=== PATIENT | female | born 1965 | race American Indian/Alaskan Native ===

== ENCOUNTER 2017-04-13 15:38 | Emergency (ER) | payer MEDICARE ==
[2017-04-13 15:55] VITALS: TEMP 98.2
[2017-04-13 16:41] LABS: BASO % 0.6 % (0.0-2.0); EOS # 0.2 K/uL (0.0-0.7); EOS % 2.9 % (0.0-4.0); HEMATOCRIT 31.9 % (34.0-47.0); LYMPH # 1.7 K/uL (1.0-4.3); LYMPH % 20.9 % (20.0-40.0); MEAN CELL VOLUME 92.5 fL (81.0-99.0); MEAN CORPUSCULAR HEMOGLOBIN 30.8 pg (27.0-31.0); MEAN CORPUSCULAR HGB CONC 33.3 g/dL (33.0-37.0); MEAN PLATELET VOLUME 7.9 fL (7.2-11.7); MONO # 0.6 K/uL (0.0-0.8); MONO % 7.3 % (0.0-10.0); RED CELL DISTRIBUTION WIDTH 14.3 % (11.5-14.5); WHITE BLOOD COUNT 8.3 K/uL (4.8-10.8)
--- NOTE | 2017-04-13 16:43 | C.PDOC ---
History Of Present Illness 51 y/o F c PMHx Lupus p/w pale stool yesterday. Patient states she was constipated until 2 days ago when she did have a bowel movement but noted that one of the stools was white. She states that today it is normal. She states she has felt bloated recently. She states she just finished antibiotic course for UTI diagnosed 5 days ago. Denies fever, vomiting, current dysuria, dyspnea. Time Seen by Provider: 04/13/17 16:06 Chief Complaint (Nursing): Medical Clearance Past Medical History Vital Signs: Last Vital Signs Temp 98.2 F 04/13/17 15:50 Pulse 90 04/13/17 15:50 Resp 20 04/13/17 15:50 BP 126/86 04/13/17 15:50 Pulse Ox 97 04/13/17 16:43 - Medical History PMH: CHF, HTN Surgical History: Appendectomy Family History: States: No Known Family Hx - Social History Hx Alcohol Use: No Hx Substance Use: Yes - Immunization History Hx Tetanus Toxoid Vaccination: Yes Hx Influenza Vaccination: No Hx Pneumococcal Vaccination: No Review Of Systems Except As Marked, All Systems Reviewed And Found Negative. Constitutional: Negative for: Fever Cardiovascular: Negative for: Chest Pain Physical Exam - Physical Exam Appears: No Acute Distress Skin: Normal Color Head: Normacephalic Eye(s): bilateral: PERRL Oral Mucosa: Moist Neck: Supple Cardiovascular: Rhythm Regular Respiratory: Normal Breath Sounds Gastrointestinal/Abdominal: Soft, No Tenderness, No Distention, No Guarding, No Rebound Back: No CVA Tenderness Extremity: No Tenderness, No Swelling Pulses: Left Radial: Normal, Right Radial: Normal Neurological/Psych: Normal Speech, Normal Cognition Gait: Steady ED Course And Treatment - Laboratory Results Result Diagrams: 04/13/17 16:37 04/13/17 16:37 O2 Sat by Pulse Oximetry: 97 Medical Decision Making Medical Decision Making: No abdominal tenderness, no vomiting, no distention. No indication for imaging at this time. Will check labs including bilirubin to evaluate this "white" stool. Labs unremarkable. Patient in no distress, eating grapes in stretcher. Will discharge home, has PMD f/u tomorrow, instructed to return to the ER for worsening pain, vomiting, fever, flank pain, or any other problem. Disposition - Disposition Referrals: Garcia Gates MD [Staff Provider] - Disposition: HOME/ ROUTINE Disposition Time: 17:12 Condition: STABLE Instructions: Gas and Bloating (ED) - Clinical Impression Clinical Impression: Abdominal pain
[2017-04-13 16:50] LABS: RBC URINE 1 /hpf (0-3); URINE BILIRUBIN NEGATIVE (NEGATIVE); URINE BLOOD NEGATIVE (NEGATIVE); URINE COLOR Yellow (YELLOW); URINE GLUCOSE (UA) NORMAL (Normal); URINE KETONE NEGATIVE (NEGATIVE); URINE LEUKOCYTE ESTERASE NEG Leu/uL (Negative); URINE PROTEIN NEGATIVE (NEGATIVE); URINE UROBILINOGEN NORMAL mg/dL (0.2-1.0); WBC URINE 2 /hpf (0-5)
[2017-04-13] MEDS ORDERED: Alum-Mag Hydrox-Simethicone Susp (30 mL) PO STA (16:50)
[2017-04-13] MEDS ORDERED: Aluminum Hydroxide/Magnesium Hydroxide Susp (30 mL) ONE (16:52)
[2017-04-13 16:57] LABS: CHLORIDE 105 mmol/L (98-107)
[2017-04-13 16:58] LABS: POTASSIUM 3.9 mmol/L (3.6-5.2); SODIUM 143 mmol/L (132-148)
[2017-04-13 17:00] LABS: AST/SGOT 19 U/L (14-36); BILIRUBIN,DIRECT 0.4 mg/dL (0.0-0.4); BILIRUBIN,TOTAL 0.5 mg/dL (0.2-1.3); BLOOD UREA NITROGEN 8 mg/dL (7-17); CARBON DIOXIDE 29 mmol/L (22-30); GFR AFRICAN-AMERICAN > 60; TOTAL PROTEIN 7.9 g/dL (6.3-8.3)
[2017-04-13 17:01] LABS: ALKALINE PHOSPHATASE 91 U/L (38-126); ALT/SGPT 16 U/L (9-52); CALCIUM 9.4 mg/dl (8.6-10.4); GLUCOSE,RANDOM 103 mg/dL (65-105)
[2017-04-13 17:18] VITALS: BP 129/76; PULSE 70; RESP 16; O2SAT 98
== END 2017-04-13 17:18 | disposition home or self-care (01) ==
LOC: C.ER 15:38
DX: R10.84 Generalized abdominal pain (principal)

== ENCOUNTER 2017-06-16 10:53 | Inpatient (IN) | payer MEDICARE ==
--- NOTE | 2017-06-16 12:20 | C.PDOC ---
History Of Present Illness 51 y/o female with Hx of Lupus presents to ED with complaints of chest pain and epigastric pain. Patient states one month ago she saw Dr. Gates and was told she had GERD and treated. An appointment with GI Doctor Arianne is scheduled for 06/18/17 and states she cannot wait because pain is severe and she feels like there is a "gas ball" inside that is blocking gas from coming out. Patient reports bowel movement everyday and denies fever, chills, sob, nausea, vomiting , back pain or any other complaints at this time. Time Seen by Provider: 06/16/17 11:17 Chief Complaint (Nursing): Chest Pain History Per: Patient History/Exam Limitations: no limitations Onset/Duration Of Symptoms: Days Current Symptoms Are (Timing): Still Present Past Medical History Reviewed: Historical Data, Nursing Documentation, Vital Signs Vital Signs: Last Vital Signs Temp 100.2 F H 06/16/17 17:42 Pulse 97 H 06/16/17 17:42 Resp 20 06/16/17 17:42 BP 118/62 06/16/17 17:42 Pulse Ox 99 06/16/17 17:42 - Medical History PMH: CHF, HTN, Chronic Kidney Disease Surgical History: Appendectomy Family History: States: No Known Family Hx - Social History Hx Alcohol Use: No Hx Substance Use: Yes - Immunization History Hx Tetanus Toxoid Vaccination: Yes Hx Influenza Vaccination: No Hx Pneumococcal Vaccination: No Review Of Systems Except As Marked, All Systems Reviewed And Found Negative. Constitutional: Negative for: Fever, Chills Cardiovascular: Positive for: Chest Pain. Negative for: Palpitations Respiratory: Negative for: Cough, Shortness of Breath Gastrointestinal: Positive for: Abdominal Pain. Negative for: Nausea, Vomiting , Diarrhea Genitourinary: Negative for: Dysuria, Frequency Musculoskeletal: Negative for: Back Pain Skin: Negative for: Rash Physical Exam - Physical Exam Appears: Non-toxic, No Acute Distress Skin: Normal Color, Warm, No Rash Head: Atraumatic, Normacephalic Oral Mucosa: Moist Neck: Normal ROM, Supple Chest: Symmetrical Cardiovascular: Rhythm Regular Respiratory: Normal Breath Sounds, No Rales, No Rhonchi, No Wheezing Gastrointestinal/Abdominal: Tenderness (Epigastric), No Guarding, No Rebound, Other (Neg Campbell) Extremity: Normal ROM, Capillary Refill (<2 seconds) Neurological/Psych: Oriented x3, Normal Speech ED Course And Treatment - Laboratory Results Result Diagrams: 06/16/17 12:44 06/16/17 13:21 O2 Sat by Pulse Oximetry: 97 (RA) Pulse Ox Interpretation: Normal - Other Rad chest xray X-Ray: Interpreted by Me, Viewed By Me Interpretation: PROCEDURE: CHEST RADIOGRAPH, 1 VIEW. HISTORY: CP. COMPARISON : 05/02/2016. FINDINGS: LUNGS: Clear. PLEURA: No pneumothorax or pleural fluid seen. CARDIOVASCULAR: Normal. OSSEOUS STRUCTURES: No significant abnormalities. VISUALIZED UPPER ABDOMEN: Normal. OTHER FINDINGS: None. IMPRESSION: No active disease. Progress Note: Patient was given a dose of Zosyn. 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 Medical Decision Making Medical Decision Making: Plan: * Blood work * EKG * CXR * US Disposition - Disposition Disposition: HOSPITALIZED Disposition Time: 16:14 Condition: STABLE - Clinical Impression Clinical Impression: Cholelithiasis - Scribe Statement The provider has reviewed the documentation as recorded by the Scribe Zoila Acevedo All medical record entries made by the Scribe were at my direction and personally dictated by me. I have reviewed the chart and agree that the record accurately reflects my personal performance of the history, physical exam, medical decision making, and the department course for this patient. I have also personally directed, reviewed, and agree with the discharge instructions and disposition. Decision To Admit - Pt Status Changed To: Hospital Disposition Of: Observation - . Bed Request Type: Regular Admitting Physician: Garcia Gates Patient Diagnosis: Cholelithiasis
[2017-06-16] MEDS ORDERED: Sodium Chloride 0.9% 1,000 ML IV STA (12:22)
--- NOTE | 2017-06-16 12:36 | RAD ---
PROCEDURE: CHEST RADIOGRAPH, 1 VIEW HISTORY: CP COMPARISON: 05/02/2016 FINDINGS: LUNGS: Clear. PLEURA: No pneumothorax or pleural fluid seen. CARDIOVASCULAR: Normal. OSSEOUS STRUCTURES: No significant abnormalities. VISUALIZED UPPER ABDOMEN: Normal. OTHER FINDINGS: None. IMPRESSION: No active disease.
[2017-06-16] MEDS ORDERED: Sodium Chloride 0.9% 1,000 ML ONE ×2 (12:46→12:50)
[2017-06-16 12:52] LABS: RBC URINE 14 /hpf (0-3); URINE BACTERIA OCC (<OCC); URINE BILIRUBIN NEGATIVE (NEGATIVE); URINE BLOOD 1+ (NEGATIVE); URINE COLOR Yellow (YELLOW); URINE GLUCOSE (UA) NORMAL (Normal); URINE KETONE TRACE mg/dL (NEGATIVE); URINE LEUKOCYTE ESTERASE 1+ Leu/uL (Negative); URINE PROTEIN NEGATIVE (NEGATIVE); URINE UROBILINOGEN NORMAL mg/dL (0.2-1.0); WBC URINE 11 /hpf (0-5)
[2017-06-16 12:53] LABS: BASO # 0.1 K/uL (0.0-0.2); BASO % 0.9 % (0.0-2.0); EOS # 0.1 K/uL (0.0-0.7); EOS % 0.9 % (0.0-4.0); HEMATOCRIT 27.8 % (34.0-47.0); LYMPH # 1.5 K/uL (1.0-4.3); LYMPH % 12.4 % (20.0-40.0); MEAN CORPUSCULAR HEMOGLOBIN 28.9 pg (27.0-31.0); MEAN CORPUSCULAR HGB CONC 32.7 g/dL (33.0-37.0); MONO # 0.7 K/uL (0.0-0.8); MONO % 6.2 % (0.0-10.0); RED CELL DISTRIBUTION WIDTH 17.2 % (11.5-14.5)
[2017-06-16 13:16] LABS: MEAN CELL VOLUME 88.4 fL (81.0-99.0)
[2017-06-16 13:34] LABS: INR 1.2
[2017-06-16 13:58] LABS: CHLORIDE 104 mmol/L (98-107); POTASSIUM 4.3 mmol/L (3.6-5.2); SODIUM 141 mmol/L (132-148)
[2017-06-16 14:00] LABS: AMYLASE 99 U/L (30-110); CARBON DIOXIDE 27 mmol/L (22-30); GFR AFRICAN-AMERICAN > 60
[2017-06-16 14:01] LABS: ALB/GLOB RATIO 0.8 (1.0-2.1); ALKALINE PHOSPHATASE 114 U/L (38-126); ALT/SGPT 15 U/L (9-52); AST/SGOT 13 U/L (14-36); BILIRUBIN,TOTAL 0.5 mg/dL (0.2-1.3); BLOOD UREA NITROGEN 10 mg/dL (7-17); GLUCOSE,RANDOM 92 mg/dL (65-105); TOTAL PROTEIN 7.1 g/dL (6.3-8.3)
--- NOTE | 2017-06-16 15:06 | US ---
HISTORY: diffuse abdominal pain/upper more then lower COMPARISON: None available TECHNIQUE: Sonographic evaluation of the abdomen. FINDINGS: LIVER: Measures 17.1 cm in sagittal dimension. Echogenic liver may be seen in setting of hepatic parenchymal disease or fatty infiltration. No focal hepatic mass identified. The main portal vein appears patent with normal directional flow. No intrahepatic bile duct dilatation. GALLBLADDER: Gallstones noted within the gallbladder neck and fundus. No gallbladder wall thickening. Negative sonographic Campbell's sign as assessed by the multimedia programmer. COMMON BILE DUCT: Measures 3 mm. PANCREAS: Not well-visualized. RIGHT KIDNEY: Measures 11.7 x 4.6 x 5.0cm. No obstructing calculus or hydronephrosis identified. Nonobstructing 6 mm mid pole renal calculus. Echogenic renal parenchyma. LEFT KIDNEY: Measures 11.4 x 4.7 x 3.9cm. No obstructing calculus or hydronephrosis identified. 4 mm nonobstructing left upper pole calculus. 2 x 1.4 x 2.2 cm somewhat irregularly shaped upper pole renal cyst. Echogenic renal parenchyma. SPLEEN: Measures approximately 9.6 cm. AORTA: Limited views appear unremarkable. IVC: Limited views appear unremarkable. OTHER FINDINGS: None. IMPRESSION: Cholelithiasis with gallstones noted in the gallbladder fundus and neck. Echogenic liver may be seen in setting of hepatic parenchymal disease or fatty infiltration. Echogenic renal parenchyma may be seen in the setting of medical renal disease. Bilateral nonobstructing calculi. No hydronephrosis. 2.2 cm somewhat irregularly-shaped left upper pole renal cyst.
[2017-06-16] MEDS ORDERED: Piperacillin/Tazobact 3.375 gm 100 ML IV STA (16:16)
[2017-06-16] MEDS ORDERED: Piperacillin/Tazobact 3.375 gm 100 ML IVPB ONE (16:21)
--- NOTE | 2017-06-16 16:27 | CP.PCM.CON ---
<FazalVenkat Mary Anne - Last Filed: 06/16/17 17:02> History of Present Illness - History of Present Illness History of Present Illness: CONSULT NOTE FOR DR. ALVARADO 51F presents to ER with epigastric pain that has been on and off for months and has been constant for a couple of days. Patient states pain is worse with food. She states she does have periods of nausea but does not vomit. She admits to subjective fevers and chills. States her stool has becoming much more oily that usual. PMH: Lupus, bronchitis, HTN, HLD, Avascular femoral necrosis PSH: Ortho hip surgery, cardiac caths (no stents) Social: denies tobacco, admits social alcohol, denies illicit drugs Allergies: Latex Past Patient History - Past Social History Smoking Status: Former Smoker - CARDIAC Hx Congestive Heart Failure: Yes Hx Hypertension: Yes - HEENT Hx HEENT Problems: Yes Hx Cataracts: Yes - RENAL Hx Chronic Kidney Disease: Yes - ENDOCRINE/METABOLIC Hx Endocrine Disorders: Yes Hx Systemic Lupus Erythematosus: Yes - PSYCHIATRIC Hx Substance Use: Yes - SURGICAL HISTORY Hx Appendectomy: Yes - ANESTHESIA Hx Anesthesia: Yes Hx Anesthesia Reactions: No Meds Allergies/Adverse Reactions: Allergies Allergy/AdvReac Type Severity Reaction Status Date / Time latex Allergy Verified 06/16/17 11:04 - Medications Medications: Current Medications Piperacillin Sod/Tazobactam Sod (Zosyn 3.375 In Ns 100ml) 100 mls @ 200 mls/hr IV STAT STA Stop: 06/16/17 16:45 Last Admin: 06/16/17 16:25 Dose: 200 mls/hr Physical Exam - Constitutional Appears: Non-toxic, No Acute Distress - Head Exam Head Exam: ATRAUMATIC - Eye Exam Eye Exam: EOMI - ENT Exam ENT Exam: Mucous Membranes Moist - Respiratory Exam Respiratory Exam: Clear to Auscultation Bilateral, NORMAL BREATHING PATTERN - Cardiovascular Exam Cardiovascular Exam: REGULAR RHYTHM, +S1, +S2 - GI/Abdominal Exam GI & Abdominal Exam: Soft, Tenderness (RUQ, Epigastric, LUQ). absent: Distended , Firm, Guarding, Rebound, Rigid - Extremities Exam Extremities exam: Negative for: pedal edema, tenderness - Neurological Exam Neurological exam: Alert, Oriented x3 - Psychiatric Exam Psychiatric exam: Normal Affect, Normal Mood - Skin Skin Exam: Dry, Intact, Normal Color, Warm Results - Vital Signs Recent Vital Signs: Last Vital Signs Temp 98.2 F 06/16/17 10:59 Pulse 101 H 06/16/17 15:19 Resp 20 06/16/17 15:19 BP 128/83 06/16/17 15:19 Pulse Ox 97 06/16/17 16:19 - Labs Result Diagrams: 06/16/17 12:44 06/16/17 13:21 Labs: Laboratory Results - last 24 hr 06/16/17 06/16/17 06/16/17 12:44 12:44 13:21 WBC 12.0 H RBC 3.15 L Hgb 9.1 L Hct 27.8 L MCV 88.4 D MCH 28.9 MCHC 32.7 L RDW 17.2 H Plt Count 619 H D MPV 9.0 Neut % (Auto) 79.6 H Lymph % (Auto) 12.4 L Luce % (Auto) 6.2 Eos % (Auto) 0.9 Baso % (Auto) 0.9 Neut # 9.6 H Lymph # 1.5 Luce # 0.7 Eos # 0.1 Baso # 0.1 Differential Comment PT 13.4 H INR 1.2 APTT 32 Sodium Potassium Chloride Carbon Dioxide Anion Gap BUN Creatinine Est GFR ( Amer) Est GFR (Non-Af Amer) Random Glucose Calcium Total Bilirubin AST ALT Alkaline Phosphatase Total Creatine Kinase CK-MB (Mass) Troponin I NT-Pro-B Natriuret Pep Total Protein Albumin Globulin Albumin/Globulin Ratio Amylase Lipase Urine Color Yellow Urine Clarity Hazy Urine pH 6.0 Ur Specific [place] 1.012 Urine Protein Negative Urine Glucose (UA) Normal Urine Ketones Trace Urine Blood 1+ H Urine Nitrate Positive H Urine Bilirubin Negative Urine Urobilinogen Normal Ur Leukocyte Esterase 1+ H Urine WBC (Auto) 11 H Urine RBC (Auto) 14 H Ur Squamous Epith Cells 11 H Urine Bacteria Occ H 06/16/17 13:21 WBC RBC Hgb Hct MCV MCH MCHC RDW Plt Count MPV Neut % (Auto) Lymph % (Auto) Luce % (Auto) Eos % (Auto) Baso % (Auto) Neut # Lymph # Luce # Eos # Baso # Differential Comment PT INR APTT Sodium 141 Potassium 4.3 Chloride 104 Carbon Dioxide 27 Anion Gap 14 BUN 10 Creatinine 0.8 Est GFR ( Amer) > 60 Est GFR (Non-Af Amer) > 60 Random Glucose 92 Calcium 9.0 Total Bilirubin 0.5 AST 13 L D ALT 15 Alkaline Phosphatase 114 Total Creatine Kinase 38 CK-MB (Mass) < 0.22 Troponin I < 0.0120 NT-Pro-B Natriuret Pep 285 Total Protein 7.1 Albumin 3.1 L D Globulin 4.1 H Albumin/Globulin Ratio 0.8 L Amylase 99 Lipase 51 Urine Color Urine Clarity Urine pH Ur Specific [place] Urine Protein Urine Glucose (UA) Urine Ketones Urine Blood Urine Nitrate Urine Bilirubin Urine Urobilinogen Ur Leukocyte Esterase Urine WBC (Auto) Urine RBC (Auto) Ur Squamous Epith Cells Urine Bacteria Assessment & Plan - Assessment and Plan (Free Text) Assessment: 51F with abdominal pain found to have gallstone in the neck of the gallbladder US: gallstones in the fundus and neck of the gallbladder Plan: - Plan for OR on friday - Pain control, abx - FLD till friday Discussed with Dr. Jenny Diehl, PGY2 <Mejia Alvarado - Last Filed: 06/21/17 17:30> Results - Vital Signs Recent Vital Signs: Last Vital Signs Temp 99.6 F 06/18/17 08:54 Pulse 97 H 06/18/17 08:54 Resp 20 06/18/17 08:54 BP 143/89 06/18/17 08:54 Pulse Ox 98 06/18/17 08:54 - Labs Result Diagrams: 06/17/17 08:00 06/17/17 08:00 Attending/Attestation - Attestation I have personally seen and examined this patient.: Yes I have fully participated in the care of the patient.: Yes I have reviewed all pertinent clinical information: Yes Notes (Text): 06/21/17 17:29 Pt was seen and examined at bedside Agree with above note and assessment Pt with Cholelithiasis and possible Cholecystitis Cardiology clearance C.w IV antibiotics Plan d.w pt in detail Risk and benefit explained in detail.
[2017-06-16] MEDS ORDERED: Morphine 4 MG/ML VIAL IV PRN (17:10)
[2017-06-16] MEDS ORDERED: Piperacillin/Tazobact 3.375 GM in Sodium Chloride 100 ML IVPB SCH (17:15)
[2017-06-16] MEDS ORDERED: Morphine 4 MG/ML VIAL ONE (17:45)
[2017-06-16 21:33] VITALS: RESP 20
--- NOTE | 2017-06-16 22:58 | CP.PCM.HP ---
History of Present Illness - History of Present Illness History of Present Illness: 51 Y/O BF WITH SLE.HTN SEH USES STREET DRUGS, NON COMPLIANT WITH F/U AND SHE HAS 1 WEEK OF LUQ ABDOMINAL PAIN, DYSPESIA, NAUSEA, NO COUGH, POSITIVE FEVR, NO CHEST PAIN, SHE HAS WEAKNESS AND POOR APPETITE Present on Admission - Present on Admission Any Indicators Present on Admission: No History of DVT/PE: No History of Uncontrolled Diabetes: No Urinary Catheter: No Decubitus Ulcer Present: No Review of Systems - Constitutional Constitutional: Chills - Gastrointestinal Gastrointestinal: Abdominal Pain, Belching, Bloating, Early Satiety, Excessive Flatus, Heartburn, Nausea - Musculoskeletal Musculoskeletal: Arthralgias - Integumentary Integumentary: Dry Skin Past Patient History - Past Social History Smoking Status: Former Smoker - CARDIAC Hx Congestive Heart Failure: Yes Hx Hypertension: Yes - HEENT Hx HEENT Problems: Yes Hx Cataracts: Yes - RENAL Hx Chronic Kidney Disease: Yes - ENDOCRINE/METABOLIC Hx Endocrine Disorders: Yes Hx Systemic Lupus Erythematosus: Yes - HEMATOLOGICAL/ONCOLOGICAL Other/Comment: systemic lupus - MUSCULOSKELETAL/RHEUMATOLOGICAL Hx Falls: No - GASTROINTESTINAL Other/Comment: gerd - PSYCHIATRIC Hx Substance Use: No - SURGICAL HISTORY Hx Appendectomy: Yes - ANESTHESIA Hx Anesthesia: Yes Hx Anesthesia Reactions: No Hx Malignant Hyperthermia: No Has any member of the family had a problem w/ anesthesia?: No Meds Allergies/Adverse Reactions: Allergies Allergy/AdvReac Type Severity Reaction Status Date / Time latex Allergy Verified 06/16/17 11:04 Physical Exam - Constitutional Appears: Non-toxic, No Acute Distress, Cachectic - Head Exam Head Exam: ATRAUMATIC, NORMAL INSPECTION, NORMOCEPHALIC - Eye Exam Eye Exam: EOMI, Normal appearance, PERRL Pupil Exam: NORMAL ACCOMODATION - ENT Exam ENT Exam: Mucous Membranes Moist, Normal Exam, Normal Oropharynx, TM's Normal Bilaterally - Neck Exam Neck exam: Positive for: Normal Inspection - Respiratory Exam Respiratory Exam: Clear to Auscultation Bilateral, NORMAL BREATHING PATTERN - Cardiovascular Exam Cardiovascular Exam: REGULAR RHYTHM, +S1, +S2 - GI/Abdominal Exam GI & Abdominal Exam: Normal Bowel Sounds, Soft - Rectal Exam Rectal Exam: NORMAL INSPECTION - Extremities Exam Extremities exam: Positive for: normal inspection - Back Exam Back exam: NORMAL INSPECTION - Neurological Exam Neurological exam: Alert, CN II-XII Intact, Normal Gait, Oriented x3, Reflexes Normal - Psychiatric Exam Psychiatric exam: Anxious - Skin Skin Exam: Dry, Intact Results - Vital Signs Recent Vital Signs: Last Vital Signs Temp 98.3 F 06/16/17 21:31 Pulse 90 06/16/17 21:31 Resp 20 06/16/17 21:31 BP 121/82 06/16/17 21:31 Pulse Ox 98 06/16/17 21:31 - Labs Result Diagrams: 06/16/17 12:44 06/16/17 13:21 Labs: Laboratory Results - last 24 hr 06/16/17 20:14 Urine HCG, Qual Negative Assessment & Plan (1) UTI (urinary tract infection) Assessment and Plan: C/S, ZOSYN Status: Acute Priority: High (2) SLE exacerbation Status: Chronic Priority: Medium (3) Dehydration Assessment and Plan: IVF Status: Acute Priority: High (4) Cholelithiasis Assessment and Plan: HIDA SCAN, SURGERY EVAL Status: Acute Priority: High
[2017-06-16] MEDS: Sodium Chloride 0.9% 1,000 ML IV SCH (23:52)
[2017-06-17] MEDS: Piperacill/Tazo 3.375gm in Dex 3.375 GM/50 ML BAG IVPB SCH ×3 (00:02→17:53)
[2017-06-17 08:12] LABS: HEMATOCRIT 25.9 % (34.0-47.0); MEAN CELL VOLUME 87.6 fL (81.0-99.0); MEAN CORPUSCULAR HEMOGLOBIN 29.8 pg (27.0-31.0); MEAN PLATELET VOLUME 8.9 fL (7.2-11.7); RED CELL DISTRIBUTION WIDTH 16.7 % (11.5-14.5); WHITE BLOOD COUNT 11.9 K/uL (4.8-10.8)
[2017-06-17 08:19] LABS: CHLORIDE 105 mmol/L (98-107); POTASSIUM 3.7 mmol/L (3.6-5.2); SODIUM 142 mmol/L (132-148)
[2017-06-17 08:22] LABS: ALB/GLOB RATIO 0.8 (1.0-2.1); ALKALINE PHOSPHATASE 127 U/L (38-126); ALT/SGPT 17 U/L (9-52); AST/SGOT 14 U/L (14-36); BILIRUBIN,TOTAL 0.6 mg/dL (0.2-1.3); BLOOD UREA NITROGEN 8 mg/dL (7-17); CARBON DIOXIDE 25 mmol/L (22-30); GFR AFRICAN-AMERICAN > 60; GLUCOSE,RANDOM 91 mg/dL (65-105); TOTAL PROTEIN 7.4 g/dL (6.3-8.3)
--- NOTE | 2017-06-17 09:01 | CP.PCM.PN ---
<Venkat Diehl - Last Filed: 06/17/17 08:58> Subjective - Date & Time of Evaluation Date of Evaluation: 06/17/17 Time of Evaluation: 08:00 - Subjective Subjective: SURGERY NOTE FOR DR. ALVARADO 51F seen and examined at bedside. Patient pain much more tolerable than yesterday. She is tolerating the clear liquid diet and wants something heavier. Denies nausea, vomiting, fevers, chills, Objective - Vital Signs/Intake and Output Vital Signs (last 24 hours): Temp Pulse Resp BP Pulse Ox 98.7 F 71 20 136/81 97 06/17/17 07:27 06/17/17 07:27 06/17/17 07:27 06/17/17 07:27 06/17/17 07:27 Intake and Output: 06/17/17 06/17/17 06:59 18:59 Intake Total 840 Balance 840 - Medications Medications: Current Medications Enoxaparin Sodium (Lovenox) 40 mg SC DAILY [facility] Piperacillin Sod/Tazobactam Sod (Zosyn 3.375 Gm Iv Premix) 3.375 gm in 50 mls @ 100 mls/hr IVPB Q8H [facility] Last Admin: 06/17/17 00:02 Dose: 100 mls/hr Sodium Chloride (Sodium Chloride 0.9%) 1,000 mls @ 100 mls/hr IV .Q10H [facility] Last Admin: 06/16/17 23:52 Dose: 100 mls/hr Morphine Sulfate (Morphine) 1 mg IV Q6 PRN PRN Reason: Pain, moderate (4-7) Ondansetron HCl (Zofran Inj) 4 mg IVP Q4 PRN PRN Reason: Nausea/Vomiting Pantoprazole Sodium (Protonix Inj) 40 mg IVP DAILY [facility] Last Admin: 06/16/17 17:48 Dose: 40 mg Pneumococcal Polyvalent Vaccine (Pneumovax 23 Vaccine) 0.5 ml SC .ONCE ONE Stop: 06/18/17 10:01 - Labs Labs: 06/17/17 08:00 06/17/17 08:00 PT 13.4 SECONDS (9.7-12.2) H 06/16/17 13:21 INR 1.2 06/16/17 13:21 APTT 32 SECONDS (21-34) 06/16/17 13:21 - Constitutional Appears: Non-toxic, No Acute Distress - Respiratory Exam Respiratory Exam: Clear to Ausculation Bilateral, NORMAL BREATHING PATTERN - Cardiovascular Exam Cardiovascular Exam: REGULAR RHYTHM, +S1, +S2 - GI/Abdominal Exam GI & Abdominal Exam: Soft, Tenderness (epigastric tenderness on palpation). absent: Distended, Firm, Guarding, Rigid, Rebound - Neurological Exam Neurological Exam: Alert, Awake, Oriented x3 - Psychiatric Exam Psychiatric exam: Normal Affect, Normal Mood - Skin Skin Exam: Dry, Intact, Normal Color, Warm Assessment and Plan - Assessment and Plan (Free Text) Assessment: 51F presents with abdominal pain found to have gallstones in the fundus and neck of the gallbladder Plan: -plan for OR tomorrow 06/18 -NPO after midnight -anti-coags held -Hcg pending Further recs discuss with Dr Jenny Diehl, PGY2 <Mejia Alvarado - Last Filed: 06/21/17 17:34> Objective - Vital Signs/Intake and Output Vital Signs (last 24 hours): Temp Pulse Resp BP Pulse Ox 99.6 F 97 H 20 143/89 98 06/18/17 08:54 06/18/17 08:54 06/18/17 08:54 06/18/17 08:54 06/18/17 08:54 - Labs Labs: PT 13.4 SECONDS (9.7-12.2) H 06/16/17 13:21 INR 1.2 06/16/17 13:21 APTT 32 SECONDS (21-34) 06/16/17 13:21 Attending/Attestation - Attestation I have personally seen and examined this patient.: Yes I have fully participated in the care of the patient.: Yes I have reviewed all pertinent clinical information, including history, physical exam and plan: Yes Notes (Text): 06/21/17 17:32 Pt was seen and examined at bedside Agree with above note and assessment Pt with Cholelithiasis and Chronic Cholecystitis Awaiting Cardiology clearance Will schedule Cholecystectomy as Out pt PO antibiotics and analgesics Plan d.w pt in detail Risk and benefit explained in detail.
[2017-06-17] MEDS ORDERED: Enoxaparin 40 mg Syringe SC SCH (10:00)
[2017-06-17 10:06] LABS: FOLATE 10.4 ng/mL
--- NOTE | 2017-06-17 12:02 | NM ---
PROCEDURE: Nuclear Medicine Hepatobiliary Scan HISTORY: cholecystitis COMPARISON: June 16, 2017. Abdominal ultrasound TECHNIQUE: 6.4 mCi of technetium 99m Mebrofenin was administered intravenously. Planar images of the abdomen were obtained at 5 min intervals to 60 mins. Delayed images were also obtained. FINDINGS: LIVER: Timely and homogenous uptake. COMMON BILE DUCT: identified at 10 mins. GALLBLADDER: Not identified at 3 hours. SMALL BOWEL: Identified at 15 mins. IMPRESSION: Positive Hepatobiliary Scan. The cystic duct is occluded, presumptive evidence for acute cholecystitis. .
[2017-06-17] MEDS: metroNIDAZOLE IV 250mg/50 ml 250 MG/50 ML BAG IVPB SCH (21:08)
[2017-06-17] MEDS ORDERED: metroNIDAZOLE IV 500 mg/100 ml 250 MG in Premixed IV 1 EA IVPB SCH (22:00)
[2017-06-17] MEDS: Sodium Chloride 0.9% 1,000 ML IV SCH (22:11)
--- NOTE | 2017-06-17 23:03 | CP.PCM.PN ---
Subjective - Date & Time of Evaluation Date of Evaluation: 06/17/17 Time of Evaluation: 10:12 - Subjective Subjective: LUQ PAIN, FEELS BETTER, FOR OR. NO NAUSEA, NO VOMITING Objective - Vital Signs/Intake and Output Vital Signs (last 24 hours): Temp Pulse Resp BP Pulse Ox 98.7 F 71 20 136/81 97 06/17/17 07:27 06/17/17 07:27 06/17/17 07:27 06/17/17 07:27 06/17/17 07:27 Intake and Output: 06/17/17 06/18/17 18:59 06:59 Intake Total 1000 Balance 1000 - Medications Medications: Current Medications Enoxaparin Sodium (Lovenox) 40 mg SC DAILY [facility] Piperacillin Sod/Tazobactam Sod (Zosyn 3.375 Gm Iv Premix) 3.375 gm in 50 mls @ 100 mls/hr IVPB Q8H [facility] Last Admin: 06/17/17 17:53 Dose: 100 mls/hr Sodium Chloride (Sodium Chloride 0.9%) 1,000 mls @ 100 mls/hr IV .Q10H [facility] Last Admin: 06/17/17 22:11 Dose: 100 mls/hr Metronidazole (Flagyl) 250 mg in 50 mls @ 50 mls/hr IVPB Q8H [facility] Stop: 06/22/17 20:01 Last Admin: 06/17/17 21:08 Dose: 50 mls/hr Morphine Sulfate (Morphine) 1 mg IV Q6 PRN PRN Reason: Pain, moderate (4-7) Ondansetron HCl (Zofran Inj) 4 mg IVP Q4 PRN PRN Reason: Nausea/Vomiting Pantoprazole Sodium (Protonix Inj) 40 mg IVP DAILY [facility] Last Admin: 06/17/17 10:10 Dose: 40 mg Pneumococcal Polyvalent Vaccine (Pneumovax 23 Vaccine) 0.5 ml SC .ONCE ONE Stop: 06/18/17 10:01 Zolpidem Tartrate (Ambien) 5 mg PO HS PRN PRN Reason: Insomnia Last Admin: 06/17/17 22:08 Dose: 5 mg - Labs Labs: PT 13.4 SECONDS (9.7-12.2) H 06/16/17 13:21 INR 1.2 06/16/17 13:21 APTT 32 SECONDS (21-34) 06/16/17 13:21 - Constitutional Appears: Non-toxic, No Acute Distress - Head Exam Head Exam: ATRAUMATIC, NORMAL INSPECTION, NORMOCEPHALIC - Eye Exam Eye Exam: EOMI, Normal appearance Pupil Exam: NORMAL ACCOMODATION - ENT Exam ENT Exam: Mucous Membranes Moist, Normal Exam - Neck Exam Neck Exam: Normal Inspection - Respiratory Exam Respiratory Exam: Clear to Ausculation Bilateral, NORMAL BREATHING PATTERN - Cardiovascular Exam Cardiovascular Exam: REGULAR RHYTHM, +S1, +S2 - GI/Abdominal Exam GI & Abdominal Exam: Normal Bowel Sounds - Rectal Exam Rectal Exam: NORMAL INSPECTION - Extremities Exam Extremities Exam: Full ROM, Normal Capillary Refill, Normal Inspection - Back Exam Back Exam: NORMAL INSPECTION - Neurological Exam Neurological Exam: Alert, Awake, CN II-XII Intact, Normal Gait, Oriented x3 Neuro motor strength exam: Left Upper Extremity: 5, Right Upper Extremity: 5, Left Lower Extremity: 5, Right Lower Extremity: 5 - Psychiatric Exam Psychiatric exam: Normal Mood - Skin Skin Exam: Intact Assessment and Plan (1) UTI (urinary tract infection) Status: Acute (2) SLE exacerbation Status: Chronic (3) Dehydration Status: Acute (4) Cholelithiasis Assessment & Plan: ACUTE CHOLECYTITIS, OR IN AM Status: Acute
[2017-06-18] MEDS: Piperacill/Tazo 3.375gm in Dex 3.375 GM/50 ML BAG IVPB SCH ×2 (00:51→08:00)
[2017-06-18] MEDS: metroNIDAZOLE IV 250mg/50 ml 250 MG/50 ML BAG IVPB SCH ×2 (05:17→11:23)
[2017-06-18] MEDS: Sodium Chloride 0.9% 1,000 ML IV SCH (05:18)
[2017-06-18 08:55] VITALS: BP 143/89; PULSE 97; TEMP 99.6; O2SAT 98
[2017-06-18] MEDS ORDERED: Pneumococcal 23-Valent Vaccine SC ONE (10:00)
--- NOTE | 2017-06-18 12:18 | CARD ---
APPROVED REPORT EXAM: Two-dimensional and M-mode echocardiogram with Doppler and color Doppler. Other Information Quality : GoodRhythm : INDICATION Congestive Heart Failure LUPUS RISK FACTORS Hypertension Hyperlipidemia M-Mode DIMENSIONS RVDd1.14 (2.1-3.2cm)Left Atrium (MM)3.76 (2.5-4.0cm) IVSd0.92 (0.7-1.1cm)Aortic Root2.47 (2.2-3.7cm) LVDd5.38 (4.0-5.6cm)Aortic Cusp Exc.1.84 (1.5-2.0cm) PWd1.07 (0.7-1.1cm)FS (%) 42 % LVDs3.10 (2.0-3.8cm)LVEF (%)73 (>50%) Aortic Valve AI P 1/2 [id number] Mitral Valve MV E Cvootgkn01.9cm/sMV A Gizaatwz48.3cm/sE/A ratio0.7 TDI E/Lateral E'0.0E/Medial E'0.0 Tricuspid Valve TR Peak Epqktvaz179sz/sTR Peak Gr.[id number] LEFT VENTRICLE The left ventricle is normal size. There is normal left ventricular wall thickness. The left ventricular function is normal. The left ventricular ejection fraction is within the normal range. There is normal LV segmental wall motion. Transmitral Doppler flow pattern is Grade I-abnormal relaxation pattern. RIGHT VENTRICLE The right ventricle is normal size. There is normal right ventricular wall thickness. The right ventricular systolic function is normal. ATRIA The left atrium size is normal. The right atrium size is normal. AORTIC VALVE The aortic valve is mildly thickened. There is mild aortic regurgitation. MITRAL VALVE The mitral valve is mildly thickened. Mitral regurgitation is mild. TRICUSPID VALVE There is mild tricuspid regurgitation. There is mild to moderate pulmonary hypertension. GREAT VESSELS The aortic root is normal in size. PERICARDIAL EFFUSION There is a small circumferential pericardial effusion. There is no evidence of cardiac tamponade. <Conclusion> The left ventricle is normal size. There is normal left ventricular wall thickness. The left ventricular function is normal. The left ventricular ejection fraction is within the normal range. There is normal LV segmental wall motion. Transmitral Doppler flow pattern is Grade I-abnormal relaxation pattern. There is mild aortic regurgitation. Mitral regurgitation is mild. There is mild tricuspid regurgitation. There is mild to moderate pulmonary hypertension. There is a small circumferential pericardial effusion. There is no evidence of cardiac tamponade.
--- NOTE | 2017-06-18 12:48 | CP.PCM.PN ---
Subjective - Date & Time of Evaluation Date of Evaluation: 06/18/17 Time of Evaluation: 12:45 - Subjective Subjective: Patient seen today , abdominal pain and nausea improved , tolerating liquid diet , denies any fever, chills, dysuria wants to go home today a febrile Objective - Vital Signs/Intake and Output Vital Signs (last 24 hours): Temp Pulse Resp BP Pulse Ox 99.6 F 97 H 20 143/89 98 06/18/17 08:54 06/18/17 08:54 06/18/17 08:54 06/18/17 08:54 06/18/17 08:54 Intake and Output: 06/18/17 06/18/17 06:59 18:59 Intake Total 1000 0 Balance 1000 0 - Medications Medications: Current Medications Enoxaparin Sodium (Lovenox) 40 mg SC DAILY [facility] Piperacillin Sod/Tazobactam Sod (Zosyn 3.375 Gm Iv Premix) 3.375 gm in 50 mls @ 100 mls/hr IVPB Q8H [facility] Last Admin: 06/18/17 08:00 Dose: Not Given Sodium Chloride (Sodium Chloride 0.9%) 1,000 mls @ 100 mls/hr IV .Q10H [facility] Last Admin: 06/18/17 05:18 Dose: Not Given Metronidazole (Flagyl) 250 mg in 50 mls @ 50 mls/hr IVPB Q8H [facility] Stop: 06/22/17 20:01 Last Admin: 06/18/17 11:23 Dose: 50 mls/hr Morphine Sulfate (Morphine) 1 mg IV Q6 PRN PRN Reason: Pain, moderate (4-7) Ondansetron HCl (Zofran Inj) 4 mg IVP Q4 PRN PRN Reason: Nausea/Vomiting Pantoprazole Sodium (Protonix Inj) 40 mg IVP DAILY [facility] Last Admin: 06/18/17 11:19 Dose: 40 mg Zolpidem Tartrate (Ambien) 5 mg PO HS PRN PRN Reason: Insomnia Last Admin: 06/17/17 22:08 Dose: 5 mg - Labs Labs: PT 13.4 SECONDS (9.7-12.2) H 06/16/17 13:21 INR 1.2 06/16/17 13:21 APTT 32 SECONDS (21-34) 08/14/17 13:21 Assessment and Plan - Assessment and Plan (Free Text) Assessment: 51F presents with abdominal pain found to have gallstones in the fundus and neck of the gallbladder D/w Dr. Stout, surgery can be scheduled out patient, MD office will call patient and give appointment date D/W Dr. Damon, regarding cardiac clearance, Pt cleared for surgery D/W Dr. Gates, stable for discharge home today and f/u with Dr. Beyer office and Dr. Gates office in 1 week antibiotics RX given for UTI/E. COLI
--- NOTE | 2017-06-18 21:39 | CP.PCM.DIS ---
Provider - Provider Date of Admission: 06/17/17 17:26 Attending physician: Garcia Gates MD Time Spent in preparation of Discharge (in minutes): 30 Diagnosis - Discharge Diagnosis (1) UTI (urinary tract infection) Status: Acute Priority: High (2) SLE exacerbation Status: Chronic Priority: Medium (3) Dehydration Status: Acute Priority: High (4) Cholelithiasis Status: Acute Priority: High Hospital Course - Lab Results Lab Results: Most Recent Lab Values WBC 11.9 K/uL (4.8-10.8) H 06/17/17 08:00 RBC 2.96 Mil/uL (3.80-5.20) L 06/17/17 08:00 Hgb 8.8 g/dL (11.0-16.0) L 06/17/17 08:00 Hct 25.9 % (34.0-47.0) L 06/17/17 08:00 MCV 87.6 fL (81.0-99.0) 06/17/17 08:00 MCH 29.8 pg (27.0-31.0) 06/17/17 08:00 MCHC 34.0 g/dL (33.0-37.0) 06/17/17 08:00 RDW 16.7 % (11.5-14.5) H 06/17/17 08:00 Plt Count 617 K/uL (130-400) H 06/17/17 08:00 MPV 8.9 fL (7.2-11.7) 06/17/17 08:00 Neut % (Auto) 79.6 % (50.0-75.0) H 06/16/17 12:44 Lymph % (Auto) 12.4 % (20.0-40.0) L 06/16/17 12:44 [place] % (Auto) 6.2 % (0.0-10.0) 06/16/17 12:44 Eos % (Auto) 0.9 % (0.0-4.0) 06/16/17 12:44 Baso % (Auto) 0.9 % (0.0-2.0) 06/16/17 12:44 Neut # 9.6 K/uL (1.8-7.0) H 06/16/17 12:44 Lymph # 1.5 K/uL (1.0-4.3) 06/16/17 12:44 [place] # 0.7 K/uL (0.0-0.8) 06/16/17 12:44 Eos # 0.1 K/uL (0.0-0.7) 06/16/17 12:44 Baso # 0.1 K/uL (0.0-0.2) 06/16/17 12:44 Differential Comment 06/16/17 12:44 Haptoglobin 473 mg/dL (43-212) H 06/17/17 08:00 PT 13.4 SECONDS (9.7-12.2) H 06/16/17 13:21 INR 1.2 06/16/17 13:21 APTT 32 SECONDS (21-34) 06/16/17 13:21 Sodium 142 mmol/L (132-148) 06/17/17 08:00 Potassium 3.7 mmol/L (3.6-5.2) 06/17/17 08:00 Chloride 105 mmol/L (98-107) 06/17/17 08:00 Carbon Dioxide 25 mmol/L (22-30) 06/17/17 08:00 Anion Gap 17 (10-20) 06/17/17 08:00 BUN 8 mg/dL (7-17) 06/17/17 08:00 Creatinine 0.8 MG/DL (0.7-1.2) 06/17/17 08:00 Est GFR ( Amer) > 60 06/17/17 08:00 Est GFR (Non-Af Amer) > 60 06/17/17 08:00 Random Glucose 91 mg/dL (65-105) 06/17/17 08:00 Calcium 9.0 mg/dl (8.6-10.4) 06/17/17 08:00 Iron 18 ug/dL (37-170) L 06/17/17 08:00 Total Bilirubin 0.6 mg/dL (0.2-1.3) 06/17/17 08:00 AST 14 U/L (14-36) 06/17/17 08:00 ALT 17 U/L (9-52) 06/17/17 08:00 Alkaline Phosphatase 127 U/L (38-126) H 06/17/17 08:00 Total Creatine Kinase 38 U/L (30-135) 06/16/17 13:21 CK-MB (Mass) < 0.22 ng/mL (0.0-3.38) 06/16/17 13:21 Troponin I < 0.0120 ng/mL (0.00-0.120) 06/16/17 13:21 NT-Pro-B Natriuret Pep 285 pg/mL (0-900) 06/16/17 13:21 Total Protein 7.4 g/dL (6.3-8.3) 06/17/17 08:00 Albumin 3.3 g/dL (3.5-5.0) L 06/17/17 08:00 Globulin 4.1 gm/dL (2.2-3.9) H 06/17/17 08:00 Albumin/Globulin Ratio 0.8 (1.0-2.1) L 06/17/17 08:00 Amylase 99 U/L (30-110) 06/16/17 13:21 Lipase 51 U/L (23-300) 06/16/17 13:21 Vitamin B12 > 1000 pg/mL (239-931) H 06/17/17 08:00 Folate 10.4 ng/mL 06/17/17 08:00 Beta HCG, Quant < 2.39 mIU/ML 06/17/17 08:00 Urine Color Yellow (YELLOW) 06/16/17 12:44 Urine Clarity Hazy (Clear) 06/16/17 12:44 Urine pH 6.0 (5.0-8.0) 06/16/17 12:44 Ur Specific [place] 1.012 (1.003-1.030) 06/16/17 12:44 Urine Protein Negative mg/dL (NEGATIVE) 06/16/17 12:44 Urine Glucose (UA) Normal mg/dL (Normal) 06/16/17 12:44 Urine Ketones Trace mg/dL (NEGATIVE) 06/16/17 12:44 Urine Blood 1+ (NEGATIVE) H 06/16/17 12:44 Urine Nitrate Positive (NEGATIVE) H 06/16/17 12:44 Urine Bilirubin Negative (NEGATIVE) 06/16/17 12:44 Urine Urobilinogen Normal mg/dL (0.2-1.0) 06/16/17 12:44 Ur Leukocyte Esterase 1+ Michael/uL (Negative) H 06/16/17 12:44 Urine WBC (Auto) 11 /hpf (0-5) H 06/16/17 12:44 Urine RBC (Auto) 14 /hpf (0-3) H 06/16/17 12:44 Ur Squamous Epith Cells 11 /hpf (0-5) H 06/16/17 12:44 Urine Bacteria Occ (<OCC) H 06/16/17 12:44 Urine HCG, Qual Negative (NEGATIVE) 06/18/17 07:40 - Hospital Course Hospital Course: 51 Y/O WITH ANDOMINAL PAIN, NAUSEA, AND SHE WAS FOUND TO HAVE CHOLECYSTITIS, AND [facility] NEEDS CHOLECYSTECTOMY AFTER SHE IS CLEARED ACRDIOLOGY, SHE IS FOR DISCHARGE AND THEN SHE WILL BE READMITTED FOR CHOLECYSTECTOMY Discharge Exam - Head Exam Head Exam: ATRAUMATIC, NORMAL INSPECTION, NORMOCEPHALIC - Eye Exam Eye Exam: EOMI, Normal appearance, PERRL Pupil Exam: NORMAL ACCOMODATION - ENT Exam ENT Exam: Mucous Membranes Moist, Normal Exam, Normal Oropharynx, TM's Normal Bilaterally - Neck Exam Neck exam: Normal Inspection - Respiratory Exam Respiratory Exam: NORMAL BREATHING PATTERN - Cardiovascular Exam Cardiovascular Exam: REGULAR RHYTHM, +S1, +S2 - GI/Abdominal Exam GI & Abdominal Exam: Normal Bowel Sounds - Rectal Exam Rectal Exam: NORMAL INSPECTION - Neurological Exam Neurological exam: Alert, CN II-XII Intact, Normal Gait, Oriented x3, Reflexes Normal - Psychiatric Exam Psychiatric exam: Normal Mood - Skin Skin Exam: Intact Discharge Plan - Discharge Medications Prescriptions: Metronidazole [Flagyl] 500 mg PO Q8 #21 tab Cephalexin [Keflex] 500 mg PO BID #14 capsule - Follow Up Plan Condition: STABLE Disposition: HOME/ ROUTINE Instructions: Cephalexin (By mouth), Metronidazole (By mouth), Gallstones (GEN) , Urinary Tract Infection in Women (DC), Laparoscopic Cholecystectomy (DC) Additional Instructions: Please f/u with Dr. Stout office for schedule surgery ext week- Office may call you with date f/u with Dr. Gates office in 1 week continue medication as per Med. rec. Referrals: Mejia Alvarado MD [Staff Provider] -
--- NOTE | 2017-06-18 22:51 | CON ---
DATE: 06/18/2017 CARDIOLOGY CONSULTATION REASON FOR CONSULTATION: Preoperative evaluation. HISTORY OF PRESENT ILLNESS: The patient is 51 years old female who was diagnosed with systemic lupus erythematosus in the past and now is on Plaquenil therapy. The patient states that she underwent cardiac catheterization in 2014 and was told she has normal coronary circulation. The patient presented with abdominal pain. A hepatobiliary scan was positive and the cystic duct was occluded. There is some evidence of cholecystitis. Abdominal ultrasound reported cholelithiasis with gallstones in the fundus and the neck. The patient had echogenic renal parenchyma and bilateral nonobstructive calculi. No hydronephrosis. The patient denies any chest pain or shortness of breath. SOCIAL HISTORY: The patient is a former smoker, she quit 6 months ago. MEDICATIONS: Ambien 5 mg at bedtime, Flagyl 250 mg intravenously q.8 hours, Lovenox 40 mg subcutaneously daily, morphine sulfate 1 mg intravenously q.6 hours, Protonix 40 mg intravenously once a day, normal saline at 10 mL an hour, Zofran 4 mg intravenously p.r.n., and Zosyn 3.375 g intravenously q.8 hours. REVIEW OF SYSTEMS: No dizziness or syncope. No history of seizures. No pulmonary disease related to the patient's lupus by history. PHYSICAL EXAMINATION: GENERAL: The patient is an elderly female who does not appear to be in any acute distress. VITAL SIGNS: Blood pressure 143/89, heart rate 97, temperature 99.2. HEENT: [place] conjunctivae. CHEST: Clear. HEART: S1 and S2 regular. ABDOMEN: Mild epigastric tenderness, soft. EXTREMITIES: No edema. No calf tenderness. LABORATORY DATA: Hemoglobin and hematocrit 8.8 and 25.9, white count 11.9, platelet count 617,000. SMA-7 is entirely within normal limits. One set of troponin is negative. Alkaline phosphatase is elevated at 127, total bilirubin is within normal limits. INR is 1.2, PTT 32. An EKG revealed sinus rhythm at a rate of 96, possible left atrial enlargement. Echocardiographic study revealed normal left ventricular systolic function, mild mitral insufficiency, mild aortic insufficiency, mild tricuspid insufficiency with mild pulmonary hypertension, and a small circumferential pericardial effusion without evidence of tamponade. ASSESSMENT: 1. Acute cholecystitis with cholelithiasis. 2. Hypertension. 3. Mild pulmonary hypertension. 4. Small pericardial effusion without evidence of tamponade. 5. Mild mitral and mild aortic insufficiencies. RECOMMENDATIONS: Continue current IV Zosyn and IV Flagyl. Continue subcutaneous Lovenox and IV Protonix. The patient can undergo cholecystectomy from the cardiac point of view with postoperative telemetry monitoring. Yehuda Damon MD
--- NOTE | 2017-06-20 16:11 | CARD ---
APPROVED REPORT EKG Measurement Heart [id number] NM [id number] <Conclusion> Normal sinus rhythm Possible Left atrial enlargement Nonspecific T wave abnormality Abnormal ECG
== END 2017-06-18 13:26 | disposition home or self-care (01) | DRG 445 ==
LOC: C.ER 10:53 → C.9E 16:12 → C.3T 19:29 → OBSVTOIN 06-17 17:26
PROVIDERS: ADMIT Internal Medicine; ATTEND Internal Medicine
DX: K80.00 Calculus of gallbladder with acute cholecystitis without obstruction (principal); N39.0 Urinary tract infection, site not specified; E86.0 Dehydration; I31.3 Pericardial effusion (noninflammatory); I27.2 Other secondary pulmonary hypertension; M32.9 Systemic lupus erythematosus, unspecified; I13.0 Hypertensive heart and chronic kidney disease with heart failure and stage 1 through stage 4 chronic kidney disease, or unspecified chronic kidney disease; I50.9 Heart failure, unspecified; E78.5 Hyperlipidemia, unspecified; K21.9 Gastro-esophageal reflux disease without esophagitis; N18.9 Chronic kidney disease, unspecified; F19.10 Other psychoactive substance abuse, uncomplicated; Z87.891 Personal history of nicotine dependence; Z90.49 Acquired absence of other specified parts of digestive tract; Z91.19 Patient's noncompliance with other medical treatment and regimen

== ENCOUNTER 2017-06-23 07:20 | Day surgery (SDC) | payer MEDICARE ==
[2017-06-20 14:08] VITALS: BMI 20.7
[2017-06-23] MEDS ORDERED: Lidocaine 1% Inj (20ml) ONE (07:58)
[2017-06-23] MEDS ORDERED: Bupivacaine-Epi 0.25%-1:200,000 PF Inj ONE (07:58)
[2017-06-23] MEDS ORDERED: Midazolam 2 MG/2 ML VIAL ONE (08:04)
[2017-06-23] MEDS ORDERED: Propofol 10 mg/ml Inj (20 ML) ONE (08:04)
[2017-06-23] MEDS ORDERED: ceFAZolin IV 1 gm in Dextrose 1 GM/50 ML BAG IVPB ONE (08:19)
[2017-06-23] MEDS ORDERED: Lactated Ringer's 1,000 ML IV ONE ×2 (08:22→09:05)
[2017-06-23] MEDS ORDERED: Neostigmine Methylsulfate 3mg/3ml Syringe IV ONE (09:32)
--- NOTE | 2017-06-23 10:01 | PCM.SURG1 ---
Surgeon's Initial Post Op Note - Surgeon's Notes Surgeon: Dr. Alvarado Fingerprinter: Dr. Job Benson PGY-2 Type of Anesthesia: General Endo Pre-Operative Diagnosis: chronic cholecystitis Operative Findings: see operative report Post-Operative Diagnosis: see operative report Operation Performed: robotic cholecystectomy Specimen/Specimens Removed: gallbladder Estimated Blood Loss: EBL {In ML}: 10 Blood Products Given: N/A Drains Used: No Drains Post-Op Condition: Good Date of Surgery/Procedure: 06/23/17 Time of Surgery/Procedure: 08:20
[2017-06-23] MEDS ORDERED: Oxycodone/Acetaminophen 5/325 mg Tab PO PRN (10:02)
[2017-06-23] MEDS: HYDROmorphone 0.5 mg/0.5 ml ISec IVP PRN ×2 (10:46→11:05)
[2017-06-23 11:44] VITALS: O2SAT 99
[2017-06-23 11:54] VITALS: RESP 18
[2017-06-23 12:41] VITALS: BP 123/75; PULSE 77; TEMP 97.7
--- NOTE | 2017-06-24 03:08 | OP ---
PROCEDURE DATE: 06/23/2017 PREOPERATIVE DIAGNOSES: Cholelithiasis and chronic cholecystitis. POSTOPERATIVE DIAGNOSES: Cholelithiasis and chronic cholecystitis.\ Hydrops of Gallbladder PROCEDURE: Robotic cholecystectomy. Robotic Aspiration of Hydrops of Gallbladder SURGEON: Dr. Alvarado. SENIOR MANAGER MMCOE: NATE Pollock. Donna was present from the beginning till the end of the procedure, helped in the prepping and draping, placement of the port, docking and undocking of the robot. ANOTHER SENIOR MANAGER MMCOE: Shabbir Kaiser, PGY-II resident. TYPE OF ANESTHESIA: General endotracheal tube anesthesia. ESTIMATED BLOOD LOSS: Around 10 mL COMPLICATIONS: None. INTRAOPERATIVE FINDINGS: The patient had changes f chronic cholecystitis and cholelithiasis and the patient also had a hydrops of the gallbladder. DESCRIPTION OF PROCEDURE: On intraoperative steps, this 51-year-old female who was diagnosed with chronic cholecystitis and cholelithiasis and the patient was consented for robotic cholecystectomy possible open, brought to the OR, placed supine on the operating room table. After induction of the anesthesia, abdomen was prepped and draped in the usual sterile fashion. Supraumbilical incision was made, after incising skin and subcutaneous tissue, the fascia was incised in the line of incision. Robotic camera port was placed. Another 3 robotic ports were placed in the upper abdomen after that robot was brought in, and camera arm as well as arm 1 and arm 2 was docked, and the gallbladder appeared to be extremely thickened and edematous and then gallbladder was aspirated percutaneously through one of the port and the patient found to have water colored clear bile and after that the gallbladder was retracted cranially. Calot's triangle dissection was done. Intraoperative firefly was used and cystic duct and cystic artery were confirmed and cystic duct and cystic artery was clipped at three places and cut in between two clips nearby the gallbladder, and the gallbladder was dissected-free from the gallbladder fossa, taken in the EndoCatch bag, taken out through the umbilical port site and sent to the table for pathology. There was proper hemostasis in each and every part of the procedure and all the instruments were taken out. The robot was undocked. All the ports were taken out, under vision. The umbilical port was closed in two layers, the fascia with a 0 Vicryl interrupted sutures, skin with a 4-0 Monocryl, and dry sterile dressing was applied. The patient tolerated the procedure well. Count of the instruments was correct. There was no apparent complications. The second procedure is aspiration of the hydrops of the gallbladder. Mejia Alvarado MD JENNIFER
== END 2017-06-23 12:40 | disposition home or self-care (01) ==
LOC: C.SDS 07:20
PROVIDERS: ATTEND Surgery Surgical Critical Care
DX: K80.10 Calculus of gallbladder with chronic cholecystitis without obstruction (principal); I10 Essential (primary) hypertension; M32.9 Systemic lupus erythematosus, unspecified
CPT/HCPCS: 36415; 47562; 86850; 86900; 88304; J0690; J1100; J1170; J1885; J2250; J2405; J2704; J2710; J3010; J7030; J7120

== ENCOUNTER 2017-06-28 18:43 | Observation (INO) | payer MEDICARE ==
[2017-06-28 18:44] VITALS: BMI 20.7
--- NOTE | 2017-06-28 19:34 | C.PDOC ---
History Of Present Illness 51 y/o female with a PMHx of Lupus, and chronic cholecystitis s/p laparoscopic cholecystectomy last Friday with Dr. Alvarado. Since discharge, she has had pleuritic left chest pain and temperatures of 101-102 daily. Also complaining of persistent epigastric discomfort and weakness, associated with difficulty walking. Able to eat but has no appetite. PMD: Garcia Gates Time Seen by Provider: 06/28/17 19:12 Chief Complaint (Nursing): Chest Pain History Per: Patient History/Exam Limitations: no limitations Onset/Duration Of Symptoms: Days (x5) Current Symptoms Are (Timing): Still Present Past Medical History Reviewed: Historical Data, Nursing Documentation, Vital Signs Vital Signs: Last Vital Signs Temp 99.6 F 06/28/17 19:24 Pulse 26 L 06/28/17 19:24 Resp 99 H 06/28/17 19:24 BP 121/80 06/28/17 19:31 Pulse Ox 99 06/28/17 22:56 - Medical History PMH: CHF, HTN, Chronic Kidney Disease Other PMH: Lupus Surgical History: Appendectomy, Cholecystectomy Family History: States: No Known Family Hx - Social History Hx Alcohol Use: No Hx Substance Use: Yes - Immunization History Hx Tetanus Toxoid Vaccination: Yes Hx Influenza Vaccination: No Hx Pneumococcal Vaccination: No Review Of Systems Except As Marked, All Systems Reviewed And Found Negative. Constitutional: Positive for: Fever Cardiovascular: Positive for: Chest Pain (Left-sided, pleuritic) Gastrointestinal: Positive for: Abdominal Pain (epigastric), Other (loss of appetite) Neurological: Positive for: Weakness (generalized), Other (Difficulty walking) Physical Exam - Physical Exam Appears: Non-toxic, No Acute Distress, Other (Appears pale, winded) Skin: Warm, Dry, Pale, No Rash Head: Atraumatic, Normacephalic Eye(s): bilateral: Normal Inspection, PERRL, EOMI Oral Mucosa: Moist Neck: Normal, Normal ROM, Supple Chest: Symmetrical Cardiovascular: Rhythm Regular, No Murmur Respiratory: Normal Breath Sounds, No Accessory Muscle Use Gastrointestinal/Abdominal: Bowel Sounds (normal), Soft, Tenderness (Mild epigastric tenderness) Extremity: Bilateral: Atraumatic, Normal Color And Temperature, Normal ROM Neurological/Psych: Oriented x3, Normal Speech ED Course And Treatment - Laboratory Results Result Diagrams: 06/28/17 20:01 06/28/17 20:01 Lab Interpretation: Abnormal (WBC 16.1 with left shift, Hgn 8.8, Hct 26.4, Urine +nitrites with WBC 21 and many bacteria, D-dimer 2076) ECG: Interpreted By Ct ECG Rhythm: Sinus Tachycardia, Nonspecific Changes (T wave changes) O2 Sat by Pulse Oximetry: 99 (RA) Pulse Ox Interpretation: Normal - CT Scan/US CT Angiography Chest With Intravenous Contrast Other Rad Studies (CT/US): Read By Radiologist, Radiology Report Reviewed CT/US Interpretation: FINDINGS: No pulmonary embolism. The ascending aorta measures 3.5 cm in diameter and the descending aorta measures 2.2 cm in. diameter. No aortic dissection. IMPRESSION: Small pericardial effusion and left pleural effusion. Small left lower lung atelectasis. Pneumoperitoneum. Small amount of fluid in the cholecystectomy bed. These are at least partially. postoperative in etiology although if there is clinical concern for additional abdominal pathology,. dedicated imaging could be performed. Mild cardiomegaly. There is a small pericardial effusion measuring approximately 12 mm in width. There is a small left pleural effusion. Mediastinal lymph nodes, 2 of which are borderline prominent measuring 1.6 cm in diameter. Followup is recommended. Left lower lung atelectasis is present. Pneumoperitoneum is present presumably at least partially due to the patient's recent. cholecystectomy. Small fluid in the cholecystectomy bed incompletely imaged Reevaluation Time: 22:57 Reassessment Condition: Improved - Physician Consult Information Time Consulting Physician Contacted: 22:57 Physician Contacted: Garcia Gates Outcome Of Conversation: Patient to be admitted to [facility] for pleuritic chest pain with small pericardial effusion. Medical Decision Making Medical Decision Making: Time: 19:35 Plan: --EKG --CMP --Lipase --Troponin I --CBC --D Dimer --sodium chloride IV 1000 ml at 1000 mls/hr --Urinalysis --Beta HCG quant --Pending CT Angio Chest (PE Probability) Disposition - Disposition Disposition: HOSPITALIZED Disposition Time: 22:58 Condition: STABLE - POA Present On Arrival: None - Clinical Impression Clinical Impression: Pleuritic pain, Pericardial effusion, Pleural effusion, UTI (urinary tract infection), SLE exacerbation - Scribe Statement The provider has reviewed the documentation as recorded by the Daniel Rodriguez All medical record entries made by the Scribe were at my direction and personally dictated by me. I have reviewed the chart and agree that the record accurately reflects my personal performance of the history, physical exam, medical decision making, and the department course for this patient. I have also personally directed, reviewed, and agree with the discharge instructions and disposition.
[2017-06-28] MEDS ORDERED: Sodium Chloride 0.9% 1,000 ML IV ONE (19:35)
[2017-06-28 20:06] LABS: BASO % 0.3 % (0.0-2.0); EOS # 0.2 K/uL (0.0-0.7); EOS % 1.1 % (0.0-4.0); HEMATOCRIT 26.4 % (34.0-47.0); LYMPH # 1.5 K/uL (1.0-4.3); LYMPH % 9.4 % (20.0-40.0); MEAN CELL VOLUME 85.1 fL (81.0-99.0); MEAN CORPUSCULAR HEMOGLOBIN 28.4 pg (27.0-31.0); MEAN CORPUSCULAR HGB CONC 33.4 g/dL (33.0-37.0); MONO # 1.4 K/uL (0.0-0.8); MONO % 8.4 % (0.0-10.0); PLATELET COUNT 681 K/uL (130-400); RED CELL DISTRIBUTION WIDTH 18.8 % (11.5-14.5); WHITE BLOOD COUNT 16.1 K/uL (4.8-10.8)
[2017-06-28 20:13] LABS: RBC URINE 1 /hpf (0-3); URINE BACTERIA MANY (<OCC); URINE BILIRUBIN NEGATIVE (NEGATIVE); URINE BLOOD NEGATIVE (NEGATIVE); URINE COLOR Yellow (YELLOW); URINE GLUCOSE (UA) NORMAL (Normal); URINE KETONE NEGATIVE (NEGATIVE); URINE LEUKOCYTE ESTERASE 2+ Leu/uL (Negative); URINE PROTEIN NEGATIVE (NEGATIVE); URINE UROBILINOGEN NORMAL mg/dL (0.2-1.0); WBC URINE 21 /hpf (0-5)
[2017-06-28 20:14] LABS: CHLORIDE 101 mmol/L (98-107)
[2017-06-28 20:15] LABS: POTASSIUM 3.6 mmol/L (3.6-5.2); SODIUM 138 mmol/L (132-148)
[2017-06-28 20:17] LABS: ALB/GLOB RATIO 0.7 (1.0-2.1); ALKALINE PHOSPHATASE 79 U/L (38-126); ALT/SGPT 15 U/L (9-52); AST/SGOT 14 U/L (14-36); BILIRUBIN,TOTAL 0.5 mg/dL (0.2-1.3); BLOOD UREA NITROGEN 7 mg/dL (7-17); CARBON DIOXIDE 24 mmol/L (22-30); GFR AFRICAN-AMERICAN > 60; GLUCOSE,RANDOM 136 mg/dL (65-105); TOTAL PROTEIN 6.9 g/dL (6.3-8.3)
[2017-06-28 20:18] LABS: CALCIUM 8.5 mg/dl (8.6-10.4)
[2017-06-28 21:06] LABS: NEUTROPHIL 87 % (50-75); TOTAL CELLS COUNTED 100
[2017-06-28] MEDS ORDERED: Iodixanol 320 MG/ML 100 ML BOTTLE IV ONE (21:19)
--- NOTE | 2017-06-28 22:38 | CT ---
EXAM: CT Angiography Chest With Intravenous Contrast EXAM DATE/TIME: 06/28/2017 7:35 PM CLINICAL HISTORY: 51 years old, female; Pain; Chest pain; Type not specified; Patient HX: Gallbladder removed 06-23-2017 TECHNIQUE: Axial computed tomographic angiography images of the chest with intravenous contrast using pulmonary embolism protocol. All CT scans at this facility use one or more dose reduction techniques, viz.: automated exposure control; ma/kV adjustment per patient size (including targeted exams where dose is matched to indication; i.e. head); or iterative reconstruction technique. MIP reconstructed images were created and reviewed. Coronal and sagittal reformatted images were created and reviewed. CONTRAST: 100 mL of VISIPAQUE administered intravenously. COMPARISON: No relevant prior studies available. FINDINGS: No pulmonary embolism. The ascending aorta measures 3.5 cm in diameter and the descending aorta measures 2.2 cm in diameter. No aortic dissection. Mild cardiomegaly. There is a small pericardial effusion measuring approximately 12 mm in width. There is a small left pleural effusion. Mediastinal lymph nodes, 2 of which are borderline prominent measuring 1.6 cm in diameter. Followup is recommended. Left lower lung atelectasis is present. Pneumoperitoneum is present presumably at least partially due to the patient's recent cholecystectomy. Small fluid in the cholecystectomy bed incompletely imaged IMPRESSION: Small pericardial effusion and left pleural effusion. Small left lower lung atelectasis. Pneumoperitoneum. Small amount of fluid in the cholecystectomy bed. These are at least partially postoperative in etiology although if there is clinical concern for additional abdominal pathology, dedicated imaging could be performed.
[2017-06-28] MEDS ORDERED: cefTRIAXone IV 1 gm in Dextros 50 ML IVPB ONE ×2 (22:59→23:33)
[2017-06-28] MEDS ORDERED: Azithromycin 500mg/250ML NS 500 MG/250 ML BAG IV SCH (23:00)
[2017-06-29] MEDS ORDERED: Albuterol 0.042% Inhal Sol (1.25 mg/3 mL) UD INH SCH ×2 (02:00)
[2017-06-29 08:05] LABS: BASO # 0.1 K/uL (0.0-0.2); BASO % 0.4 % (0.0-2.0); EOS # 0.1 K/uL (0.0-0.7); EOS % 0.4 % (0.0-4.0); HEMATOCRIT 25.2 % (34.0-47.0); LYMPH # 1.5 K/uL (1.0-4.3); LYMPH % 9.3 % (20.0-40.0); MEAN CELL VOLUME 84.9 fL (81.0-99.0); MEAN CORPUSCULAR HEMOGLOBIN 28.3 pg (27.0-31.0); MEAN CORPUSCULAR HGB CONC 33.3 g/dL (33.0-37.0); MEAN PLATELET VOLUME 8.3 fL (7.2-11.7); MONO # 1.4 K/uL (0.0-0.8); MONO % 8.9 % (0.0-10.0); PLATELET COUNT 659 K/uL (130-400); RED CELL DISTRIBUTION WIDTH 18.7 % (11.5-14.5); WHITE BLOOD COUNT 16.1 K/uL (4.8-10.8)
[2017-06-29 08:26] LABS: CHLORIDE 103 mmol/L (98-107)
[2017-06-29 08:27] LABS: POTASSIUM 3.5 mmol/L (3.6-5.2); SODIUM 140 mmol/L (132-148)
[2017-06-29 08:29] LABS: GFR AFRICAN-AMERICAN > 60
[2017-06-29 08:30] LABS: BLOOD UREA NITROGEN 5 mg/dL (7-17); CALCIUM 8.8 mg/dl (8.6-10.4); CARBON DIOXIDE 26 mmol/L (22-30); GLUCOSE,RANDOM 132 mg/dL (65-105)
[2017-06-29] MEDS ORDERED: PRAVASTATIN SODIUM PO SCH (10:00)
[2017-06-29] MEDS: cefTRIAXone IV 1 gm in Dextros 50 ML IVPB SCH (10:41)
[2017-06-29] MEDS: Azithromycin 500 MG in Sodium Chloride 0.9% 250 ML IVPB SCH (10:42)
[2017-06-29] MEDS: Enoxaparin 40 mg Syringe SC SCH (10:43)
[2017-06-29] MEDS ORDERED: Potassium Chloride 20 mEq ER Tab PO ONE (12:00)
[2017-06-29 12:02] LABS: NEUTROPHIL 80 % (50-75); TOTAL CELLS COUNTED 100
[2017-06-29 12:06] LABS: LARGE PLATELETS PRESENT
[2017-06-29] MEDS: Albuterol 0.083% Inhal Sol (2.5 mg/3 mL) UD INH SCH ×2 (13:24→20:06)
--- NOTE | 2017-06-29 13:52 | CP.PCM.CON ---
<Venkat Diehl - Last Filed: 06/29/17 15:13> History of Present Illness - History of Present Illness History of Present Illness: Attending: Jenny Patient is a 51 yo female with a PMHx of SLE, CKD. She is POD6 s/p lap cholecystectomy with Dr. Alvarado. Patient has complaints of left sided chest pain and subjective fevers since her discharge last Friday. Patient reports that her chest pain is worsened with deep inspiration. She also complains of epigastric pain and generalized malaise. PMHx: CHF, HTN, CKD, Lupus PSHx: Appendectomy, Cholecystectomy FHx: Unknown Past Patient History - Infectious Disease Hx of Infectious Diseases: None - Past Medical History & Family History Past Medical History?: Yes - Past Social History Smoking Status: Current Some Days Smoker - CARDIAC Hx Congestive Heart Failure: Yes Hx Hypertension: Yes - PULMONARY Hx Respiratory Disorders: No - NEUROLOGICAL Hx Neurological Disorder: No - HEENT Hx HEENT Problems: Yes Hx Cataracts: Yes - RENAL Hx Chronic Kidney Disease: Yes - ENDOCRINE/METABOLIC Hx Endocrine Disorders: Yes Hx Systemic Lupus Erythematosus: Yes - HEMATOLOGICAL/ONCOLOGICAL Hx Blood Disorders: Yes Other/Comment: systemic lupus - INTEGUMENTARY Hx Dermatological Problems: No - MUSCULOSKELETAL/RHEUMATOLOGICAL Hx Musculoskeletal Disorders: Yes Hx Falls: Yes Other/Comment: difficulty ambulating - GASTROINTESTINAL Hx Gastrointestinal Disorders: Yes Hx Gastroesophageal Reflux: Yes Other/Comment: gerd - GENITOURINARY/GYNECOLOGICAL Hx Genitourinary Disorders: Yes Hx Urinary Tract Infection: Yes - PSYCHIATRIC Hx Substance Use: Yes (marijuana) - SURGICAL HISTORY Hx Appendectomy: Yes Hx Cholecystectomy: Yes - ANESTHESIA Hx Anesthesia: Yes Hx Anesthesia Reactions: No Hx Malignant Hyperthermia: No Meds Allergies/Adverse Reactions: Allergies Allergy/AdvReac Type Severity Reaction Status Date / Time lactose Allergy Intermediate NAUSEA Verified 06/23/17 08:06 latex Allergy Intermediate RASH Verified 06/23/17 08:06 - Medications Medications: Current Medications Acetaminophen (Tylenol 325mg Tab) 650 mg PO Q4 PRN PRN Reason: for pain and fever Albuterol Sulfate (Albuterol 0.083% Inhal Carmen (2.5 Mg/3 Ml) Ud) 2.5 mg INH RQ6 [facility] Last Admin: 06/29/17 13:24 Dose: 2.5 mg Carvedilol (Coreg) 3.125 mg PO BID [facility] Last Admin: 06/29/17 10:40 Dose: 3.125 mg Enoxaparin Sodium (Lovenox) 40 mg SC DAILY [facility] Last Admin: 06/29/17 10:43 Dose: 40 mg Famotidine (Pepcid) 40 mg PO DAILY [facility] Last Admin: 06/29/17 10:40 Dose: 40 mg Hydroxychloroquine Sulfate (Plaquenil) 200 mg PO BID [facility] Last Admin: 06/29/17 10:40 Dose: 200 mg Azithromycin (Zithromax 500mg In Ns Addvantage) 500 mg in 250 mls @ 166.667 mls /hr IV STAT [facility] Azithromycin 500 mg/ Sodium (Chloride) 250 mls @ 250 mls/hr IVPB DAILY [facility] Last Admin: 06/29/17 10:42 Dose: 250 mls/hr Ceftriaxone Sodium (Rocephin Iv 1 Gm Duplex) 50 mls @ 100 mls/hr IVPB DAILY [facility] Last Admin: 06/29/17 10:41 Dose: 100 mls/hr Metronidazole (Flagyl) 500 mg PO Q8 [facility] Last Admin: 06/29/17 06:20 Dose: 500 mg Morphine Sulfate (Morphine) 2 mg IV Q4H PRN PRN Reason: Pain, severe (8-10) Last Admin: 06/29/17 11:57 Dose: 2 mg Ondansetron HCl (Zofran Inj) 4 mg IVP Q6H PRN PRN Reason: Nausea/Vomiting Last Admin: 06/29/17 11:59 Dose: 4 mg Pneumococcal Polyvalent Vaccine (Pneumovax 23 Vaccine) 0.5 ml IM .ONCE ONE Stop: 07/01/17 14:01 Rosuvastatin Calcium (Crestor) 5 mg PO [facility] Physical Exam - Constitutional Appears: Non-toxic, No Acute Distress - Head Exam Head Exam: ATRAUMATIC, NORMAL INSPECTION, NORMOCEPHALIC - Eye Exam Eye Exam: Normal appearance. absent: Scleral icterus Pupil Exam: NORMAL ACCOMODATION - ENT Exam ENT Exam: Mucous Membranes Moist - Respiratory Exam Respiratory Exam: Clear to Auscultation Bilateral, NORMAL BREATHING PATTERN. absent: Respiratory Distress - Cardiovascular Exam Cardiovascular Exam: REGULAR RHYTHM, +S1, +S2. absent: JVD - GI/Abdominal Exam GI & Abdominal Exam: Soft, Tenderness. absent: Distended, Rebound, Rigid Additional comments: Mild tenderness to palpation in RUQ and epigastrum Incisions C/D/I steristrips in place - Extremities Exam Extremities exam: Negative for: pedal edema, tenderness - Neurological Exam Neurological exam: Alert, Oriented x3 - Psychiatric Exam Psychiatric exam: Normal Affect, Normal Mood - Skin Skin Exam: Dry, Intact, Normal Color Results - Vital Signs Recent Vital Signs: Last Vital Signs Temp 98.6 F 06/29/17 07:25 Pulse 95 H 06/29/17 07:25 Resp 18 06/29/17 07:25 BP 119/81 06/29/17 07:25 Pulse Ox 97 06/29/17 07:25 - Labs Result Diagrams: 06/29/17 08:00 06/29/17 08:00 Labs: Laboratory Results - last 24 hr 06/29/17 06/29/17 08:00 08:00 WBC 16.1 H RBC 2.97 L Hgb 8.4 L Hct 25.2 L MCV 84.9 MCH 28.3 MCHC 33.3 RDW 18.7 H Plt Count 659 H MPV 8.3 Neut % (Auto) 81.0 H Lymph % (Auto) 9.3 L [place] % (Auto) 8.9 Eos % (Auto) 0.4 Baso % (Auto) 0.4 Neut # 13.0 H Lymph # 1.5 [place] # 1.4 H Eos # 0.1 Baso # 0.1 Neutrophils % (Manual) 80 H Lymphocytes % (Manual) 15 L Monocytes % (Manual) 5 Toxic Granulation Present Platelet Estimate Increased H Large Platelets Present Polychromasia Slight Hypochromasia (manual) Slight Poikilocytosis (manual Slight Anisocytosis (manual) Moderate Target Cells Slight Schistocytes Slight Sodium 140 Potassium 3.5 L Chloride 103 Carbon Dioxide 26 Anion Gap 14 BUN 5 L Creatinine 0.7 Est GFR ( Amer) > 60 Est GFR (Non-Af Amer) > 60 Random Glucose 132 H Calcium 8.8 Total Creatine Kinase 30 CK-MB (Mass) < 0.22 Troponin I, Quant < 0.0120 Assessment & Plan - Assessment and Plan (Free Text) Assessment: 51yo F POD6 s/p lap cholecystectomy presents with chest pain and generalized malaise CT chest: small left sided pleural effusion/pericardial effusion, small amount of fluid in the gallbladder fossa Plan: - incentive spirometer - serial abdominal exams - continue medical management Further recs discuss with Dr. Jenny Diehl, PGY2 <Mejia Alvarado - Last Filed: 06/30/17 10:40> Meds - Medications Medications: Current Medications Acetaminophen (Tylenol 325mg Tab) 650 mg PO Q4 PRN PRN Reason: for pain and fever Albuterol Sulfate (Albuterol 0.083% Inhal Carmen (2.5 Mg/3 Ml) Ud) 2.5 mg INH RQ6 [facility] Last Admin: 06/30/17 06:27 Dose: 2.5 mg Carvedilol (Coreg) 3.125 mg PO BID [facility] Last Admin: 06/30/17 10:02 Dose: 3.125 mg Enoxaparin Sodium (Lovenox) 40 mg SC DAILY [facility] Last Admin: 06/30/17 10:02 Dose: 40 mg Famotidine (Pepcid) 40 mg PO DAILY [facility] Last Admin: 06/30/17 10:02 Dose: 40 mg Hydroxychloroquine Sulfate (Plaquenil) 200 mg PO BID [facility] Last Admin: 06/30/17 10:03 Dose: 200 mg Azithromycin (Zithromax 500mg In Ns Addvantage) 500 mg in 250 mls @ 166.667 mls /hr IV STAT [facility] Azithromycin 500 mg/ Sodium (Chloride) 250 mls @ 250 mls/hr IVPB DAILY [facility] Last Admin: 06/29/17 10:42 Dose: 250 mls/hr Ceftriaxone Sodium (Rocephin Iv 1 Gm Duplex) 50 mls @ 100 mls/hr IVPB DAILY [facility] Last Admin: 06/29/17 10:41 Dose: 100 mls/hr Metronidazole (Flagyl) 500 mg PO Q8 [facility] Last Admin: 06/30/17 05:15 Dose: 500 mg Morphine Sulfate (Morphine) 2 mg IV Q4H PRN PRN Reason: Pain, severe (8-10) Last Admin: 06/30/17 09:10 Dose: 2 mg Ondansetron HCl (Zofran Inj) 4 mg IVP Q6H PRN PRN Reason: Nausea/Vomiting Last Admin: 06/30/17 09:13 Dose: 4 mg Pneumococcal Polyvalent Vaccine (Pneumovax 23 Vaccine) 0.5 ml IM .ONCE ONE Stop: 07/01/17 14:01 Rosuvastatin Calcium (Crestor) 5 mg PO HS [facility] Last Admin: 06/29/17 21:57 Dose: 5 mg Results - Vital Signs Recent Vital Signs: Last Vital Signs Temp 98.2 F 06/30/17 09:35 Pulse 96 H 06/30/17 09:35 Resp 20 06/30/17 09:35 BP 124/84 06/30/17 09:35 Pulse Ox 99 06/30/17 09:35 - Labs Result Diagrams: 06/29/17 08:00 06/29/17 08:00 Labs: Laboratory Results - last 24 hr 06/29/17 08:00 Neutrophils % (Manual) 80 H Lymphocytes % (Manual) 15 L Monocytes % (Manual) 5 Toxic Granulation Present Platelet Estimate Increased H Large Platelets Present Polychromasia Slight Hypochromasia (manual) Slight Poikilocytosis (manual Slight Anisocytosis (manual) Moderate Target Cells Slight Schistocytes Slight Attending/Attestation - Attestation I have personally seen and examined this patient.: Yes I have fully participated in the care of the patient.: Yes I have reviewed all pertinent clinical information: Yes Notes (Text): 06/30/17 10:34 Pt was seen and examined at bedside Agree with above note and assessment Pt with Left pleural effusion and Lupus, UTI Labs reviewed CT scan of chest report reviewed. C/w IV antibiotics Plan d/w pt in detail Risk and benefit explained in detail.
--- NOTE | 2017-06-29 15:10 | CP.PCM.CON ---
History of Present Illness - History of Present Illness History of Present Illness: Pulmonary Coverage for Dr Suarez 51-year-old female who underwent laparoscopic cholecystectomy recently, presents with chest pain. Patient had a CT chest angiogram which showed small left pleural effusion and no evidence of pulmonary embolism. Patient has apical blebs on CT chest. She denies cough, fever, chills, chest tightness, wheezing or phlegm. She reports dyspnea with minimal exertion which is better today. Review of Systems - Review of Systems All systems: reviewed and no additional remarkable complaints except (As per HPI ) Past Patient History - Infectious Disease Hx of Infectious Diseases: None - Past Medical History & Family History Past Medical History?: Yes - Past Social History Smoking Status: Current Some Days Smoker - CARDIAC Hx Congestive Heart Failure: Yes Hx Hypertension: Yes - PULMONARY Hx Respiratory Disorders: No - NEUROLOGICAL Hx Neurological Disorder: No - HEENT Hx HEENT Problems: Yes Hx Cataracts: Yes - RENAL Hx Chronic Kidney Disease: Yes - ENDOCRINE/METABOLIC Hx Endocrine Disorders: Yes Hx Systemic Lupus Erythematosus: Yes - HEMATOLOGICAL/ONCOLOGICAL Hx Blood Disorders: Yes Other/Comment: systemic lupus - INTEGUMENTARY Hx Dermatological Problems: No - MUSCULOSKELETAL/RHEUMATOLOGICAL Hx Musculoskeletal Disorders: Yes Hx Falls: Yes Other/Comment: difficulty ambulating - GASTROINTESTINAL Hx Gastrointestinal Disorders: Yes Hx Gastroesophageal Reflux: Yes Other/Comment: gerd - GENITOURINARY/GYNECOLOGICAL Hx Genitourinary Disorders: Yes Hx Urinary Tract Infection: Yes - PSYCHIATRIC Hx Substance Use: Yes (marijuana) - SURGICAL HISTORY Hx Appendectomy: Yes Hx Cholecystectomy: Yes - ANESTHESIA Hx Anesthesia: Yes Hx Anesthesia Reactions: No Hx Malignant Hyperthermia: No Meds Allergies/Adverse Reactions: Allergies Allergy/AdvReac Type Severity Reaction Status Date / Time lactose Allergy Intermediate NAUSEA Verified 06/23/17 08:06 latex Allergy Intermediate RASH Verified 06/23/17 08:06 - Medications Medications: Current Medications Acetaminophen (Tylenol 325mg Tab) 650 mg PO Q4 PRN PRN Reason: for pain and fever Albuterol Sulfate (Albuterol 0.083% Inhal Carmen (2.5 Mg/3 Ml) Ud) 2.5 mg INH RQ6 [facility] Last Admin: 06/29/17 13:24 Dose: 2.5 mg Carvedilol (Coreg) 3.125 mg PO BID [facility] Last Admin: 06/29/17 10:40 Dose: 3.125 mg Enoxaparin Sodium (Lovenox) 40 mg SC DAILY [facility] Last Admin: 06/29/17 10:43 Dose: 40 mg Famotidine (Pepcid) 40 mg PO DAILY [facility] Last Admin: 06/29/17 10:40 Dose: 40 mg Hydroxychloroquine Sulfate (Plaquenil) 200 mg PO BID [facility] Last Admin: 06/29/17 10:40 Dose: 200 mg Azithromycin (Zithromax 500mg In Ns Addvantage) 500 mg in 250 mls @ 166.667 mls /hr IV STAT [facility] Azithromycin 500 mg/ Sodium (Chloride) 250 mls @ 250 mls/hr IVPB DAILY [facility] Last Admin: 06/29/17 10:42 Dose: 250 mls/hr Ceftriaxone Sodium (Rocephin Iv 1 Gm Duplex) 50 mls @ 100 mls/hr IVPB DAILY [facility] Last Admin: 06/29/17 10:41 Dose: 100 mls/hr Metronidazole (Flagyl) 500 mg PO Q8 [facility] Last Admin: 06/29/17 13:59 Dose: 500 mg Morphine Sulfate (Morphine) 2 mg IV Q4H PRN PRN Reason: Pain, severe (8-10) Last Admin: 06/29/17 11:57 Dose: 2 mg Ondansetron HCl (Zofran Inj) 4 mg IVP Q6H PRN PRN Reason: Nausea/Vomiting Last Admin: 06/29/17 11:59 Dose: 4 mg Pneumococcal Polyvalent Vaccine (Pneumovax 23 Vaccine) 0.5 ml IM .ONCE ONE Stop: 07/01/17 14:01 Rosuvastatin Calcium (Crestor) 5 mg PO [facility] Physical Exam - Head Exam Head Exam: NORMAL INSPECTION - Eye Exam Eye Exam: Normal appearance - ENT Exam ENT Exam: Mucous Membranes Moist - Respiratory Exam Respiratory Exam: Clear to Auscultation Bilateral, NORMAL BREATHING PATTERN - Cardiovascular Exam Cardiovascular Exam: REGULAR RHYTHM, +S1, +S2 - GI/Abdominal Exam GI & Abdominal Exam: Hypoactive Bowel Sounds, Soft - Extremities Exam Extremities exam: Positive for: normal inspection Results - Vital Signs Recent Vital Signs: Last Vital Signs Temp 98.6 F 06/29/17 07:25 Pulse 95 H 06/29/17 07:25 Resp 18 06/29/17 07:25 BP 119/81 06/29/17 07:25 Pulse Ox 97 06/29/17 07:25 - Labs Result Diagrams: 06/29/17 08:00 06/29/17 08:00 Labs: Laboratory Results - last 24 hr 06/29/17 06/29/17 08:00 08:00 WBC 16.1 H RBC 2.97 L Hgb 8.4 L Hct 25.2 L MCV 84.9 MCH 28.3 MCHC 33.3 RDW 18.7 H Plt Count 659 H MPV 8.3 Neut % (Auto) 81.0 H Lymph % (Auto) 9.3 L [place] % (Auto) 8.9 Eos % (Auto) 0.4 Baso % (Auto) 0.4 Neut # 13.0 H Lymph # 1.5 [place] # 1.4 H Eos # 0.1 Baso # 0.1 Neutrophils % (Manual) 80 H Lymphocytes % (Manual) 15 L Monocytes % (Manual) 5 Toxic Granulation Present Platelet Estimate Increased H Large Platelets Present Polychromasia Slight Hypochromasia (manual) Slight Poikilocytosis (manual Slight Anisocytosis (manual) Moderate Target Cells Slight Schistocytes Slight Sodium 140 Potassium 3.5 L Chloride 103 Carbon Dioxide 26 Anion Gap 14 BUN 5 L Creatinine 0.7 Est GFR ( Amer) > 60 Est GFR (Non-Af Amer) > 60 Random Glucose 132 H Calcium 8.8 Total Creatine Kinase 30 CK-MB (Mass) < 0.22 Troponin I, Quant < 0.0120 Assessment & Plan - Assessment and Plan (Free Text) Assessment: Pleural effusion Emphysema Chest pain Status post cholecystectomy Oxygen supplementation Bronchodilators Azithromycin/ceftriaxone IV fluids Will recommend observation for small pleural fluid Repeat chest x-ray in 2-3 days
--- NOTE | 2017-06-29 23:40 | CP.PCM.HP ---
History of Present Illness - History of Present Illness History of Present Illness: 51 y/o bf with sle, htn and h/o cholecystectomy, she was discharged and she is back with fever, cough and dysuria, has l pleural effusion, no sob, no nausea, chest pain Present on Admission - Present on Admission Any Indicators Present on Admission: No History of DVT/PE: No History of Uncontrolled Diabetes: No Urinary Catheter: No Decubitus Ulcer Present: No Review of Systems - Constitutional Constitutional: Anorexia - Cardiovascular Cardiovascular: Palpitations - Respiratory Respiratory: Chest Congestion - Gastrointestinal Gastrointestinal: Belching, Bloating, Heartburn - Musculoskeletal Musculoskeletal: Arthralgias - Integumentary Integumentary: Dry Skin - Neurological Neurological: Weakness Past Patient History - Infectious Disease Hx of Infectious Diseases: None - Past Medical History & Family History Past Medical History?: Yes - Past Social History Smoking Status: Current Some Days Smoker - CARDIAC Hx Congestive Heart Failure: Yes Hx Hypertension: Yes - PULMONARY Hx Respiratory Disorders: No - NEUROLOGICAL Hx Neurological Disorder: No - HEENT Hx HEENT Problems: Yes Hx Cataracts: Yes - RENAL Hx Chronic Kidney Disease: Yes - ENDOCRINE/METABOLIC Hx Endocrine Disorders: Yes Hx Systemic Lupus Erythematosus: Yes - HEMATOLOGICAL/ONCOLOGICAL Hx Blood Disorders: Yes Other/Comment: systemic lupus - INTEGUMENTARY Hx Dermatological Problems: No - MUSCULOSKELETAL/RHEUMATOLOGICAL Hx Musculoskeletal Disorders: Yes Hx Falls: Yes Other/Comment: difficulty ambulating - GASTROINTESTINAL Hx Gastrointestinal Disorders: Yes Hx Gastroesophageal Reflux: Yes Other/Comment: gerd - GENITOURINARY/GYNECOLOGICAL Hx Genitourinary Disorders: Yes Hx Urinary Tract Infection: Yes - PSYCHIATRIC Hx Substance Use: Yes (marijuana) - SURGICAL HISTORY Hx Appendectomy: Yes Hx Cholecystectomy: Yes - ANESTHESIA Hx Anesthesia: Yes Hx Anesthesia Reactions: No Hx Malignant Hyperthermia: No Meds Allergies/Adverse Reactions: Allergies Allergy/AdvReac Type Severity Reaction Status Date / Time lactose Allergy Intermediate NAUSEA Verified 06/23/17 08:06 latex Allergy Intermediate RASH Verified 06/23/17 08:06 Physical Exam - Head Exam Head Exam: ATRAUMATIC, NORMAL INSPECTION, NORMOCEPHALIC - Eye Exam Eye Exam: EOMI, Normal appearance, PERRL Pupil Exam: NORMAL ACCOMODATION - ENT Exam ENT Exam: Mucous Membranes Moist, Normal Exam, Normal Oropharynx, TM's Normal Bilaterally - Neck Exam Neck exam: Positive for: Normal Inspection - Respiratory Exam Respiratory Exam: Decreased Breath Sounds, Clear to Auscultation Bilateral, Rales, NORMAL BREATHING PATTERN - Cardiovascular Exam Cardiovascular Exam: REGULAR RHYTHM, +S1, +S2 - GI/Abdominal Exam GI & Abdominal Exam: Normal Bowel Sounds, Soft - Rectal Exam Rectal Exam: NORMAL INSPECTION - Extremities Exam Extremities exam: Positive for: normal inspection - Neurological Exam Neurological exam: Alert, CN II-XII Intact, Normal Gait, Oriented x3, Reflexes Normal - Psychiatric Exam Psychiatric exam: Normal Affect, Normal Mood - Skin Skin Exam: Dry, Intact, Normal Color, Warm Results - Vital Signs Recent Vital Signs: Last Vital Signs Temp 98.6 F 06/29/17 07:25 Pulse 96 H 06/29/17 16:10 Resp 18 06/29/17 07:25 BP 119/81 06/29/17 07:25 Pulse Ox 97 06/29/17 07:25 - Labs Result Diagrams: 06/29/17 08:00 06/29/17 08:00 Labs: Laboratory Results - last 24 hr 06/29/17 06/29/17 08:00 08:00 WBC 16.1 H RBC 2.97 L Hgb 8.4 L Hct 25.2 L MCV 84.9 MCH 28.3 MCHC 33.3 RDW 18.7 H Plt Count 659 H MPV 8.3 Neut % (Auto) 81.0 H Lymph % (Auto) 9.3 L [place] % (Auto) 8.9 Eos % (Auto) 0.4 Baso % (Auto) 0.4 Neut # 13.0 H Lymph # 1.5 [place] # 1.4 H Eos # 0.1 Baso # 0.1 Neutrophils % (Manual) 80 H Lymphocytes % (Manual) 15 L Monocytes % (Manual) 5 Toxic Granulation Present Platelet Estimate Increased H Large Platelets Present Polychromasia Slight Hypochromasia (manual) Slight Poikilocytosis (manual Slight Anisocytosis (manual) Moderate Target Cells Slight Schistocytes Slight Sodium 140 Potassium 3.5 L Chloride 103 Carbon Dioxide 26 Anion Gap 14 BUN 5 L Creatinine 0.7 Est GFR ( Amer) > 60 Est GFR (Non-Af Amer) > 60 Random Glucose 132 H Calcium 8.8 Total Creatine Kinase 30 CK-MB (Mass) < 0.22 Troponin I, Quant < 0.0120 Assessment & Plan (1) Pleural effusion Assessment and Plan: R/O PNA Status: Acute Priority: High (2) UTI (urinary tract infection) Assessment and Plan: PENDING, CULTURES Status: Acute Priority: High (3) SLE exacerbation Status: Chronic Priority: Medium (4) Dehydration Status: Acute Priority: High
--- NOTE | 2017-06-29 23:59 | CON ---
DATE: 06/29/2017 CARDIOLOGY CONSULTATION REASON FOR CONSULTATION: Generalized body pain, pericardial effusion, and pleural effusion. HISTORY OF PRESENT ILLNESS: The patient is a 51-year-old female who has a history of systemic lupus erythematosus, history of acute cholecystitis with cholelithiasis who underwent laparoscopic cholecystectomy last Friday. The patient underwent an echo prior to the surgery the week prior to the surgery, which revealed mild pericardial effusion without evidence of tamponade. The patient stated that she had this issue from before, but she never required aspiration at any time. The patient presents because of pleuritic chest pain, which makes her comfortable laying on her left side. The patient has also complaints of generalized aches including both shoulders. The patient did have her first bowel movement yesterday after the surgery. PAST MEDICAL HISTORY: Systemic lupus erythematosus, bronchial asthma. MEDICATIONS: Albuterol inhaler q. 6 hours, Zithromax 500 mg intravenously daily, Coreg 3.125 mg twice a, Crestor 5 mg once a day, Flagyl 500 mg p.o. q. 8 hours, Lovenox 40 mg subcutaneous daily, Pepcid 20 mg p.o. once a day, Plaquenil 200 mg twice a day, Rocephin 1 g intravenously daily, Zofran 4 mg intravenous q. 6 hours p.r.n. SOCIAL HISTORY: The patient is a smoker. REVIEW OF SYSTEMS: No dizziness or syncope. No fever or chills. PHYSICAL EXAMINATION: GENERAL: The patient is a middle aged female who does not appear to be in acute distress. VITAL SIGNS: Blood pressure 119/79, heart rate 98, temperature 98.5, respirations 20. HEENT: [place] conjunctivae. CHEST: Diminished .breath sounds over the left base. HEART: S1 and S2, regular. No gallop or pericardial rub. ABDOMEN: Diminished bowel sounds. EXTREMITIES: No edema or calf tenderness. LABORATORY DATA: SMA-7; sodium 140, potassium 3.5, chloride 103, CO2 of 26, glucose 132, BUN 5, creatinine 0.7. Two sets of troponins are negative. Lipase is within normal limit. D-dimer is 2077. Hemoglobin and hematocrit is 8.6 and 25.2, white count 16.1, platelet count 659,000. Chest CT angio revealed no evidence of pulmonary embolus, small pericardial effusion and left pleural effusion, a small left lower lung atelectasis, pneumoperitoneum. EKG revealed sinus tachycardia, heart rate of 101, possible left atrial enlargement. ASSESSMENT: 1. Small pericardial effusion. No strong clinical evidence of pericarditis. 2. Left pleural effusion. 3. Status post recent cholecystectomy. 4. Anemia. RECOMMENDATIONS: Continue oral Flagyl. Continue Plaquenil 200 mg twice a day. Continue Coreg at 3.125 mg twice a day, IV Zithromax and IV Rocephin. The patient is scheduled for an echo cardio study tomorrow to evaluate the quantity of pericardial effusion. I will obtain two sets of blood cultures. Case was discussed with the referring physician, Dr. Garcia Gates. Yehuda Damon MD
[2017-06-30] MEDS: Albuterol 0.083% Inhal Sol (2.5 mg/3 mL) UD INH SCH ×5 (01:20→20:02)
[2017-06-30] MEDS ORDERED: Simethicone 80 mg Chewtab PO ONE (06:54)
[2017-06-30] MEDS: Enoxaparin 40 mg Syringe SC SCH (10:02)
[2017-06-30] MEDS: Azithromycin 500 MG in Sodium Chloride 0.9% 250 ML IVPB SCH (10:50)
[2017-06-30] MEDS: cefTRIAXone IV 1 gm in Dextros 50 ML IVPB SCH (11:15)
--- NOTE | 2017-06-30 12:32 | CARD ---
APPROVED REPORT EKG Measurement Heart [id number] NM [id number] <Conclusion> Sinus tachycardia Possible Left atrial enlargement Nonspecific T wave abnormality Abnormal ECG
--- NOTE | 2017-06-30 12:34 | CP.PCM.PN ---
Subjective - Date & Time of Evaluation Date of Evaluation: 06/30/17 Time of Evaluation: 10:00 - Subjective Subjective: patient seen and examined. Patient states breathing gets better after nebulizer treatment on and off shortness of breath Patient with long history of smoking quit 6 months ago Status post cholecystectomy CAT scan of the chest consistent with small left pleural effusion and pericardial effusion Patient has history of lupus Denies fever chills, denies chest pain Objective - Vital Signs/Intake and Output Vital Signs (last 24 hours): Temp Pulse Resp BP Pulse Ox 98.2 F 96 H 20 124/84 99 06/30/17 09:35 06/30/17 09:35 06/30/17 09:35 06/30/17 09:35 06/30/17 09:35 - Medications Medications: Current Medications Acetaminophen (Tylenol 325mg Tab) 650 mg PO Q4 PRN PRN Reason: for pain and fever Albuterol Sulfate (Albuterol 0.083% Inhal Carmen (2.5 Mg/3 Ml) Ud) 2.5 mg INH RQ6 [facility] Last Admin: 06/30/17 06:27 Dose: 2.5 mg Carvedilol (Coreg) 3.125 mg PO BID [facility] Last Admin: 06/30/17 10:02 Dose: 3.125 mg Enoxaparin Sodium (Lovenox) 40 mg SC DAILY [facility] Last Admin: 06/30/17 10:02 Dose: 40 mg Famotidine (Pepcid) 40 mg PO DAILY [facility] Last Admin: 06/30/17 10:02 Dose: 40 mg Hydroxychloroquine Sulfate (Plaquenil) 200 mg PO BID [facility] Last Admin: 06/30/17 10:03 Dose: 200 mg Azithromycin (Zithromax 500mg In Ns Addvantage) 500 mg in 250 mls @ 166.667 mls /hr IV STAT [facility] Azithromycin 500 mg/ Sodium (Chloride) 250 mls @ 250 mls/hr IVPB DAILY [facility] Last Admin: 06/29/17 10:42 Dose: 250 mls/hr Ceftriaxone Sodium (Rocephin Iv 1 Gm Duplex) 50 mls @ 100 mls/hr IVPB DAILY [facility] Last Admin: 06/29/17 10:41 Dose: 100 mls/hr Metronidazole (Flagyl) 500 mg PO Q8 [facility] Last Admin: 06/30/17 05:15 Dose: 500 mg Morphine Sulfate (Morphine) 2 mg IV Q4H PRN PRN Reason: Pain, severe (8-10) Last Admin: 06/30/17 09:10 Dose: 2 mg Ondansetron HCl (Zofran Inj) 4 mg IVP Q6H PRN PRN Reason: Nausea/Vomiting Last Admin: 06/30/17 09:13 Dose: 4 mg Pneumococcal Polyvalent Vaccine (Pneumovax 23 Vaccine) 0.5 ml IM .ONCE ONE Stop: 07/01/17 14:01 Rosuvastatin Calcium (Crestor) 5 mg PO HS [facility] Last Admin: 06/29/17 21:57 Dose: 5 mg - Labs Labs: 06/29/17 08:00 06/29/17 08:00 - Head Exam Head Exam: ATRAUMATIC, NORMOCEPHALIC - Eye Exam Eye Exam: Normal appearance - ENT Exam ENT Exam: Mucous Membranes Moist - Neck Exam Neck Exam: Normal Inspection - Respiratory Exam Respiratory Exam: Clear to Ausculation Bilateral - Cardiovascular Exam Cardiovascular Exam: REGULAR RHYTHM - GI/Abdominal Exam GI & Abdominal Exam: Soft, Normal Bowel Sounds - Extremities Exam Extremities Exam: Normal Inspection - Neurological Exam Neurological Exam: Alert, Oriented x3 Assessment and Plan (1) Emphysema of lung Assessment & Plan: Patient with long history of smoking Continue nebulizer treatment Start inhaled steroid Will need pulmonary function test as outpatient CAT scan of the chest showed no pulmonary embolism Small pleural and small pericardial effusion Status: Acute (2) Pericardial effusion Status: Acute (3) Pleural effusion Status: Acute
[2017-06-30] MEDS ORDERED: POLYETHYLENE GLYCOL 3350 17 GM/Dose PACKET PO ONE (13:32)
--- NOTE | 2017-06-30 16:43 | PN ---
DATE: SUBJECTIVE: The patient is experiencing abdominal pain. She denies any retrosternal chest pain. PHYSICAL EXAMINATION: VITAL SIGNS: Blood pressure 124/84, heart rate 96, temperature 98.2, and respirations 20. HEENT: [place] conjunctivae. CHEST: Diminished breath sounds over the left base. HEART: S1 and S2, regular. No gallop or rub. ABDOMEN: Soft. EXTREMITIES: No edema or calf tenderness. LABORATORY DATA: No lab work is positive for today. ASSESSMENT: 1. Status post cholecystectomy. 2. Mild pericardial effusion. 3. Left pleural effusion. 4. Systemic lupus erythematosus. 5. Bronchial asthma. RECOMMENDATIONS: Continue current IV Rocephin at 1 g daily. Continue IV Zithromax at 500 mg daily. Continue Coreg at 3.125 mg twice a day, Crestor at 5 mg once a day, oral Flagyl 500 mg q.8 hours, subcutaneous Lovenox 40 mg daily, and Plaquenil 200 mg p.o. twice a day. I will review the echocardiograph study that was performed today. Yehuda Damon MD
--- NOTE | 2017-06-30 16:57 | CP.PCM.PN ---
<Emir Huertas - Last Filed: 06/30/17 16:46> Subjective - Date & Time of Evaluation Date of Evaluation: 06/30/17 Time of Evaluation: 07:10 - Subjective Subjective: General Surgery Pt S&E, NAEO. Denies abdominal pain. Still C/O "Brick" on chest making it hard to breath as well as shoulder pain. Objective - Vital Signs/Intake and Output Vital Signs (last 24 hours): Temp Pulse Resp BP Pulse Ox 98.9 F 93 H 20 120/80 97 06/30/17 15:00 06/30/17 15:00 06/30/17 15:00 06/30/17 15:00 06/30/17 15:00 - Medications Medications: Current Medications Acetaminophen (Tylenol 325mg Tab) 650 mg PO Q4 PRN PRN Reason: for pain and fever Albuterol Sulfate (Albuterol 0.083% Inhal Carmen (2.5 Mg/3 Ml) Ud) 2.5 mg INH RQ6 [facility] Last Admin: 06/30/17 13:27 Dose: 2.5 mg Budesonide (Pulmicort Respules) 0.5 mg INH RQ12 [facility] Carvedilol (Coreg) 3.125 mg PO BID [facility] Last Admin: 06/30/17 10:02 Dose: 3.125 mg Enoxaparin Sodium (Lovenox) 40 mg SC DAILY [facility] Last Admin: 06/30/17 10:02 Dose: 40 mg Famotidine (Pepcid) 40 mg PO DAILY [facility] Last Admin: 06/30/17 10:02 Dose: 40 mg Hydroxychloroquine Sulfate (Plaquenil) 200 mg PO BID [facility] Last Admin: 06/30/17 10:03 Dose: 200 mg Azithromycin (Zithromax 500mg In Ns Addvantage) 500 mg in 250 mls @ 166.667 mls /hr IV STAT [facility] Azithromycin 500 mg/ Sodium (Chloride) 250 mls @ 250 mls/hr IVPB DAILY [facility] Last Admin: 06/30/17 10:50 Dose: 250 mls/hr Ceftriaxone Sodium (Rocephin Iv 1 Gm Duplex) 50 mls @ 100 mls/hr IVPB DAILY [facility] Last Admin: 06/30/17 11:15 Dose: 100 mls/hr Metronidazole (Flagyl) 500 mg PO Q8 [facility] Last Admin: 06/30/17 14:35 Dose: 500 mg Morphine Sulfate (Morphine) 2 mg IV Q4H PRN PRN Reason: Pain, severe (8-10) Last Admin: 06/30/17 09:10 Dose: 2 mg Ondansetron HCl (Zofran Inj) 4 mg IVP Q6H PRN PRN Reason: Nausea/Vomiting Last Admin: 06/30/17 09:13 Dose: 4 mg Pneumococcal Polyvalent Vaccine (Pneumovax 23 Vaccine) 0.5 ml IM .ONCE ONE Stop: 07/01/17 14:01 Rosuvastatin Calcium (Crestor) 5 mg PO HS [facility] Last Admin: 06/29/17 21:57 Dose: 5 mg - Labs Labs: 06/29/17 08:00 06/29/17 08:00 - Constitutional Appears: Non-toxic, No Acute Distress - Head Exam Head Exam: ATRAUMATIC, NORMOCEPHALIC - Eye Exam Eye Exam: EOMI. absent: Scleral icterus - Respiratory Exam Respiratory Exam: NORMAL BREATHING PATTERN. absent: Respiratory Distress - GI/Abdominal Exam GI & Abdominal Exam: Soft. absent: Distended, Firm, Guarding, Rigid, Tenderness Additional comments: Incision and dressings C/D/I - Neurological Exam Neurological Exam: Alert, Awake, Oriented x3 - Skin Skin Exam: Dry, Warm Assessment and Plan - Assessment and Plan (Free Text) Assessment: 51F POD#7 S/P robotic assisted lap ciera. now with pericardial effusion and L pleura effusion Plan: Surgery sites healing well Encourage ambulation to help resorb CO2 in abdomen. Follow up Echo results. No surgical intervention required D/W Dr. Jenny Huertas PGY4 <Mejia Alvarado B - Last Filed: 06/30/17 19:41> Objective - Vital Signs/Intake and Output Vital Signs (last 24 hours): Temp Pulse Resp BP Pulse Ox 98.9 F 93 H 20 120/80 97 06/30/17 19:05 06/30/17 15:00 06/30/17 15:00 06/30/17 15:00 06/30/17 15:00 - Medications Medications: Current Medications Acetaminophen (Tylenol 325mg Tab) 650 mg PO Q4 PRN PRN Reason: for pain and fever Last Admin: 08/28/17 17:55 Dose: 650 mg Albuterol Sulfate (Albuterol 0.083% Inhal Carmen (2.5 Mg/3 Ml) Ud) 2.5 mg INH RQ6 [facility] Last Admin: 06/30/17 13:27 Dose: 2.5 mg Budesonide (Pulmicort Respules) 0.5 mg INH RQ12 [facility] Carvedilol (Coreg) 3.125 mg PO BID [facility] Last Admin: 06/30/17 17:50 Dose: Not Given Enoxaparin Sodium (Lovenox) 40 mg SC DAILY [facility] Last Admin: 06/30/17 10:02 Dose: 40 mg Famotidine (Pepcid) 40 mg PO DAILY [facility] Last Admin: 06/30/17 10:02 Dose: 40 mg Hydroxychloroquine Sulfate (Plaquenil) 200 mg PO BID [facility] Last Admin: 06/30/17 19:00 Dose: 200 mg Azithromycin (Zithromax 500mg In Ns Addvantage) 500 mg in 250 mls @ 166.667 mls /hr IV STAT [facility] Azithromycin 500 mg/ Sodium (Chloride) 250 mls @ 250 mls/hr IVPB DAILY [facility] Last Admin: 06/30/17 10:50 Dose: 250 mls/hr Ceftriaxone Sodium (Rocephin Iv 1 Gm Duplex) 50 mls @ 100 mls/hr IVPB DAILY [facility] Last Admin: 06/30/17 11:15 Dose: 100 mls/hr Metronidazole (Flagyl) 500 mg PO Q8 [facility] Last Admin: 06/30/17 14:35 Dose: 500 mg Morphine Sulfate (Morphine) 2 mg IV Q4H PRN PRN Reason: Pain, severe (8-10) Last Admin: 06/30/17 09:10 Dose: 2 mg Ondansetron HCl (Zofran Inj) 4 mg IVP Q6H PRN PRN Reason: Nausea/Vomiting Last Admin: 06/30/17 09:13 Dose: 4 mg Pneumococcal Polyvalent Vaccine (Pneumovax 23 Vaccine) 0.5 ml IM .ONCE ONE Stop: 07/01/17 14:01 Rosuvastatin Calcium (Crestor) 5 mg PO HS [facility] Last Admin: 06/29/17 21:57 Dose: 5 mg - Labs Labs: 06/29/17 08:00 06/29/17 08:00 Attending/Attestation - Attestation I have personally seen and examined this patient.: Yes I have fully participated in the care of the patient.: Yes I have reviewed all pertinent clinical information, including history, physical exam and plan: Yes Notes (Text): 06/30/17 19:40 Pt was seen and examined at bedside Agree with above note and assessment
--- NOTE | 2017-06-30 19:49 | CP.PCM.PN ---
Subjective - Date & Time of Evaluation Date of Evaluation: 06/30/17 Time of Evaluation: 17:32 - Subjective Subjective: constipated, s/o laxative , no sob, cough, no chest pain Objective - Vital Signs/Intake and Output Vital Signs (last 24 hours): Temp Pulse Resp BP Pulse Ox 98.9 F 93 H 20 120/80 97 06/30/17 19:05 06/30/17 15:00 06/30/17 15:00 06/30/17 15:00 06/30/17 15:00 - Medications Medications: Current Medications Acetaminophen (Tylenol 325mg Tab) 650 mg PO Q4 PRN PRN Reason: for pain and fever Last Admin: 06/30/17 17:55 Dose: 650 mg Albuterol Sulfate (Albuterol 0.083% Inhal Carmen (2.5 Mg/3 Ml) Ud) 2.5 mg INH RQ6 [facility] Last Admin: 06/30/17 13:27 Dose: 2.5 mg Budesonide (Pulmicort Respules) 0.5 mg INH RQ12 [facility] Carvedilol (Coreg) 3.125 mg PO BID [facility] Last Admin: 06/30/17 17:50 Dose: Not Given Enoxaparin Sodium (Lovenox) 40 mg SC DAILY [facility] Last Admin: 06/30/17 10:02 Dose: 40 mg Famotidine (Pepcid) 40 mg PO DAILY [facility] Last Admin: 06/30/17 10:02 Dose: 40 mg Hydroxychloroquine Sulfate (Plaquenil) 200 mg PO BID [facility] Last Admin: 06/30/17 19:00 Dose: 200 mg Azithromycin (Zithromax 500mg In Ns Addvantage) 500 mg in 250 mls @ 166.667 mls /hr IV STAT [facility] Azithromycin 500 mg/ Sodium (Chloride) 250 mls @ 250 mls/hr IVPB DAILY [facility] Last Admin: 06/30/17 10:50 Dose: 250 mls/hr Ceftriaxone Sodium (Rocephin Iv 1 Gm Duplex) 50 mls @ 100 mls/hr IVPB DAILY [facility] Last Admin: 06/30/17 11:15 Dose: 100 mls/hr Metronidazole (Flagyl) 500 mg PO Q8 [facility] Last Admin: 06/30/17 14:35 Dose: 500 mg Morphine Sulfate (Morphine) 2 mg IV Q4H PRN PRN Reason: Pain, severe (8-10) Last Admin: 06/30/17 09:10 Dose: 2 mg Ondansetron HCl (Zofran Inj) 4 mg IVP Q6H PRN PRN Reason: Nausea/Vomiting Last Admin: 06/30/17 09:13 Dose: 4 mg Pneumococcal Polyvalent Vaccine (Pneumovax 23 Vaccine) 0.5 ml IM .ONCE ONE Stop: 07/01/17 14:01 Rosuvastatin Calcium (Crestor) 5 mg PO HS [facility] Last Admin: 06/29/17 21:57 Dose: 5 mg - Labs Labs: 06/29/17 08:00 06/29/17 08:00 - Constitutional Appears: Non-toxic, No Acute Distress - Head Exam Head Exam: ATRAUMATIC, NORMAL INSPECTION, NORMOCEPHALIC - Eye Exam Eye Exam: EOMI, Normal appearance, PERRL Pupil Exam: NORMAL ACCOMODATION - ENT Exam ENT Exam: Mucous Membranes Moist, Normal Exam, Normal Oropharynx, TM's Normal Bilaterally - Neck Exam Neck Exam: Full ROM, Normal Inspection - Respiratory Exam Respiratory Exam: Clear to Ausculation Bilateral, NORMAL BREATHING PATTERN - Cardiovascular Exam Cardiovascular Exam: REGULAR RHYTHM, +S1, +S2 - GI/Abdominal Exam GI & Abdominal Exam: Soft, Normal Bowel Sounds (post op) - Rectal Exam Rectal Exam: NORMAL INSPECTION - Neurological Exam Neurological Exam: Alert, Awake, CN II-XII Intact, Normal Gait, Oriented x3 Neuro motor strength exam: Left Upper Extremity: 5, Right Upper Extremity: 5, Left Lower Extremity: 5, Right Lower Extremity: 5 - Psychiatric Exam Psychiatric exam: Normal Mood - Skin Skin Exam: Intact Assessment and Plan (1) Pleural effusion Assessment & Plan: post op, seen by dr waters Status: Acute (2) UTI (urinary tract infection) Status: Acute (3) SLE exacerbation Status: Chronic (4) Dehydration Status: Resolved
[2017-06-30] MEDS: Budesonide 0.5 mg/2 ml Inhal Susp UD INH SCH (20:04)
[2017-07-01] MEDS: Albuterol 0.083% Inhal Sol (2.5 mg/3 mL) UD INH SCH ×4 (01:15→19:25)
[2017-07-01] MEDS ORDERED: Simethicone 80 mg Chewtab PO ONE (05:05)
[2017-07-01] MEDS: Budesonide 0.5 mg/2 ml Inhal Susp UD INH SCH ×2 (07:28→19:25)
--- NOTE | 2017-07-01 08:06 | CP.PCM.PN ---
Addendum entered and electronically signed by Venkat Diehl DO 07/02/17 09:06: - Echo- 45-50%ejection fraction - Patient symptoms improving - No surgical intervention at this time. Gamal Diehl, PGY2 Original Note: <Venkat Diehl - Last Filed: 07/01/17 08:24> Subjective - Date & Time of Evaluation Date of Evaluation: 07/01/17 Time of Evaluation: 07:00 - Subjective Subjective: SURGERY NOTE FOR DR. ALVARADO 51F POD #8 s/p robotic assisted lap ciera. Pt seen and examined at bedside in no acute distress. Pt continues to c/o of diffuse b/l chest pain at 7/10 that wraps around her back and continues into her shoulders and neck. She denies abdominal pain. Pt states she passes flatus per rectum. She states she had a small, loose BM this morning. Pt c/o nausea throughout the night but no vomting. Pt denies JORDAN, palpitations, SOB. Objective - Vital Signs/Intake and Output Vital Signs (last 24 hours): Temp Pulse Resp BP Pulse Ox 99 F 84 20 110/73 98 06/30/17 23:00 06/30/17 23:00 06/30/17 23:00 06/30/17 23:00 06/30/17 23:00 Intake and Output: 07/01/17 07/01/17 06:59 18:59 Intake Total 600 Balance 600 - Medications Medications: Current Medications Acetaminophen (Tylenol 325mg Tab) 650 mg PO Q4 PRN PRN Reason: for pain and fever Last Admin: 06/30/17 17:55 Dose: 650 mg Albuterol Sulfate (Albuterol 0.083% Inhal Carmen (2.5 Mg/3 Ml) Ud) 2.5 mg INH RQ6 [facility] Last Admin: 07/01/17 07:26 Dose: 2.5 mg Budesonide (Pulmicort Respules) 0.5 mg INH RQ12 [facility] Last Admin: 07/01/17 07:28 Dose: 0.5 mg Carvedilol (Coreg) 3.125 mg PO BID [facility] Last Admin: 06/30/17 17:50 Dose: Not Given Enoxaparin Sodium (Lovenox) 40 mg SC DAILY [facility] Last Admin: 06/30/17 10:02 Dose: 40 mg Famotidine (Pepcid) 40 mg PO DAILY [facility] Last Admin: 06/30/17 10:02 Dose: 40 mg Hydroxychloroquine Sulfate (Plaquenil) 200 mg PO BID [facility] Last Admin: 06/30/17 19:00 Dose: 200 mg Azithromycin (Zithromax 500mg In Ns Addvantage) 500 mg in 250 mls @ 166.667 mls /hr IV STAT [facility] Azithromycin 500 mg/ Sodium (Chloride) 250 mls @ 250 mls/hr IVPB DAILY [facility] Last Admin: 06/30/17 10:50 Dose: 250 mls/hr Ceftriaxone Sodium (Rocephin Iv 1 Gm Duplex) 50 mls @ 100 mls/hr IVPB DAILY [facility] Last Admin: 06/30/17 11:15 Dose: 100 mls/hr Metronidazole (Flagyl) 500 mg PO Q8 [facility] Last Admin: 07/01/17 05:10 Dose: 500 mg Morphine Sulfate (Morphine) 2 mg IV Q4H PRN PRN Reason: Pain, severe (8-10) Last Admin: 07/01/17 05:07 Dose: 2 mg Ondansetron HCl (Zofran Inj) 4 mg IVP Q6H PRN PRN Reason: Nausea/Vomiting Last Admin: 07/01/17 05:21 Dose: 4 mg Pneumococcal Polyvalent Vaccine (Pneumovax 23 Vaccine) 0.5 ml IM .ONCE ONE Stop: 07/01/17 14:01 Rosuvastatin Calcium (Crestor) 5 mg PO HS [facility] Last Admin: 06/30/17 21:14 Dose: 5 mg - Labs Labs: 06/29/17 08:00 06/29/17 08:00 - Constitutional Appears: Non-toxic, No Acute Distress - Head Exam Head Exam: NORMOCEPHALIC - Eye Exam Eye Exam: EOMI, Normal appearance, PERRL - Respiratory Exam Respiratory Exam: Chest Wall Tenderness, Clear to Ausculation Bilateral, NORMAL BREATHING PATTERN. absent: Accessory Muscle Use - Cardiovascular Exam Cardiovascular Exam: REGULAR RHYTHM, +S1, +S2. absent: Murmur - GI/Abdominal Exam GI & Abdominal Exam: Soft, Tenderness, Normal Bowel Sounds. absent: Rigid, Hyperactive Bowel Sounds - Extremities Exam Extremities Exam: absent: Pedal Edema, Tenderness - Neurological Exam Neurological Exam: Alert, Awake - Psychiatric Exam Psychiatric exam: Normal Affect, Normal Mood - Skin Skin Exam: Intact, Normal Color, Warm Assessment and Plan - Assessment and Plan (Free Text) Assessment: 51F POD #8 s/p robotic assisted lap ciera. now with pericardial effusion and left pleural effusion. Plan: Surgery sites healing well Continue to encourage ambulation F/u echocardiogram results Continue antibiotics Further recs discuss with Dr. Jenny Diehl PGY2 <Mejia Alvarado - Last Filed: 07/02/17 19:41> Objective - Vital Signs/Intake and Output Vital Signs (last 24 hours): Temp Pulse Resp BP Pulse Ox 99.8 F H 84 20 118/77 97 07/02/17 15:12 07/02/17 15:12 07/02/17 15:12 07/02/17 15:12 07/02/17 15:12 - Medications Medications: Current Medications Acetaminophen (Tylenol 325mg Tab) 650 mg PO Q4 PRN PRN Reason: for pain and fever Last Admin: 06/30/17 17:55 Dose: 650 mg Albuterol Sulfate (Albuterol 0.083% Inhal Carmen (2.5 Mg/3 Ml) Ud) 2.5 mg INH RQ6 [facility] Last Admin: 07/02/17 13:26 Dose: 2.5 mg Alprazolam (Xanax) 0.25 mg PO BID PRN PRN Reason: Anxiety Stop: 07/09/17 12:58 Last Admin: 07/02/17 14:03 Dose: 0.25 mg Budesonide (Pulmicort Respules) 0.5 mg INH RQ12 [facility] Last Admin: 07/02/17 07:42 Dose: Not Given Carvedilol (Coreg) 3.125 mg PO BID [facility] Last Admin: 07/02/17 18:25 Dose: 3.125 mg Enoxaparin Sodium (Lovenox) 40 mg SC DAILY [facility] Last Admin: 07/02/17 09:39 Dose: 40 mg Famotidine (Pepcid) 40 mg PO DAILY [facility] Last Admin: 07/02/17 09:39 Dose: 40 mg Hydroxychloroquine Sulfate (Plaquenil) 200 mg PO BID [facility] Last Admin: 07/02/17 18:25 Dose: 200 mg Azithromycin (Zithromax 500mg In Ns Addvantage) 500 mg in 250 mls @ 166.667 mls /hr IV STAT [facility] Ceftriaxone Sodium (Rocephin Iv 1 Gm Duplex) 50 mls @ 100 mls/hr IVPB DAILY [facility] Last Admin: 07/02/17 09:40 Dose: 100 mls/hr Metronidazole (Flagyl) 500 mg PO Q8 [facility] Last Admin: 07/02/17 14:01 Dose: 500 mg Morphine Sulfate (Morphine) 2 mg IV Q4H PRN PRN Reason: Pain, severe (8-10) Last Admin: 07/01/17 05:07 Dose: 2 mg Ondansetron HCl (Zofran Inj) 4 mg IVP Q6H PRN PRN Reason: Nausea/Vomiting Last Admin: 07/02/17 11:29 Dose: 4 mg Potassium Chloride (K-Dur 20 Meq Er Tab) 20 meq PO DAILY [facility] Stop: 07/05/17 07:00 Last Admin: 07/02/17 09:39 Dose: 20 meq Rosuvastatin Calcium (Crestor) 5 mg PO HS [facility] Last Admin: 07/01/17 21:31 Dose: 5 mg Simethicone (Mylicon Chew Tab) 80 mg PO TID PRN PRN Reason: GI distress Last Admin: 07/02/17 10:29 Dose: 80 mg Zolpidem Tartrate (Ambien) 5 mg PO HS PRN PRN Reason: Insomnia Last Admin: 07/01/17 21:31 Dose: 5 mg - Labs Labs: 07/02/17 17:11 07/02/17 17:11 Attending/Attestation - Attestation I have personally seen and examined this patient.: Yes I have fully participated in the care of the patient.: Yes I have reviewed all pertinent clinical information, including history, physical exam and plan: Yes Notes (Text): 07/02/17 19:40 Pt was seen and examined at bedside Agree with above note and assessment f/u as out pt reg low fat diet c/w current mx Plan d.w pt in detail.
[2017-07-01] MEDS: Enoxaparin 40 mg Syringe SC SCH (10:44)
[2017-07-01] MEDS: Azithromycin 500 MG in Sodium Chloride 0.9% 250 ML IVPB SCH (10:45)
[2017-07-01] MEDS: cefTRIAXone IV 1 gm in Dextros 50 ML IVPB SCH (10:46)
[2017-07-01] MEDS ORDERED: Influenza Virus Vaccine (Afluria Inactive dont use ) IM ONE (14:00)
[2017-07-01] MEDS ORDERED: Pneumococcal 23-Valent Vaccine IM ONE (14:00)
[2017-07-01] MEDS: Simethicone 80 mg Chewtab PO PRN (18:03)
--- NOTE | 2017-07-01 19:34 | CARD ---
APPROVED REPORT EXAM: Two-dimensional and M-mode echocardiogram with Doppler and color Doppler. Other Information Quality : GoodRhythm : NSR INDICATION Pericardial Effusion Pleural Effusion Congestive Heart Failure RISK FACTORS Hypertension M-Mode DIMENSIONS RVDd2.51 (2.1-3.2cm)Left Atrium (MM)3.84 (2.5-4.0cm) IVSd0.96 (0.7-1.1cm)Aortic Root2.77 (2.2-3.7cm) LVDd4.83 (4.0-5.6cm)Aortic Cusp Exc.1.92 (1.5-2.0cm) PWd1.22 (0.7-1.1cm)FS (%) 31 % LVDs3.36 (2.0-3.8cm)LVEF (%)58 (>50%) Aortic Valve AI P 1/2 [id number] Mitral Valve MV E Ccmwvkue28.2cm/sMV A Guxqqcvy01.9cm/sE/A ratio0.8 TDI E/Lateral E'0.0E/Medial E'0.0 Tricuspid Valve TR Peak [id number]/sTR Peak Gr.[id number] LEFT VENTRICLE The left ventricle is normal size. There is normal left ventricular wall thickness. Left ventricle systolic function is mildly to moderately impaired. The Ejection Fraction is 40-45%. There is mild to moderate hypokinesis in the septal wall. Transmitral Doppler flow pattern is Grade I-abnormal relaxation pattern. RIGHT VENTRICLE The right ventricular systolic function is normal. ATRIA The left atrium size is normal. The right atrium size is normal. The interatrial septum is intact with no evidence for an atrial septal defect. AORTIC VALVE The aortic valve is normal in structure. There is mild to moderate aortic regurgitation. There is no aortic valvular stenosis. MITRAL VALVE The mitral valve is normal in structure. There is no mitral valve stenosis. Mitral regurgitation is mild. TRICUSPID VALVE The tricuspid valve is normal in structure. There is mild tricuspid regurgitation. There is no tricuspid valve stenosis. GREAT VESSELS The aortic root is normal in size. <Conclusion> Left ventricle systolic function is mildly to moderately impaired. The Ejection Fraction is 40-45%. There is mild to moderate hypokinesis in the septal wall. Transmitral Doppler flow pattern is Grade I-abnormal relaxation pattern. There is mild to moderate aortic regurgitation. Mitral regurgitation is mild. There is mild tricuspid regurgitation. Small pericardial effusion
[2017-07-01 19:55] LABS: RBC URINE 1 /hpf (0-3); URINE BACTERIA RARE (<OCC); URINE BILIRUBIN NEGATIVE (NEGATIVE); URINE BLOOD NEGATIVE (NEGATIVE); URINE COLOR Yellow (YELLOW); URINE GLUCOSE (UA) NORMAL (Normal); URINE KETONE TRACE mg/dL (NEGATIVE); URINE PROTEIN 1+ mg/dL (NEGATIVE); URINE UROBILINOGEN NORMAL mg/dL (0.2-1.0); WBC URINE 2 /hpf (0-5)
[2017-07-01 20:04] LABS: URINE LEUKOCYTE ESTERASE TRACE Leu/uL (Negative)
--- NOTE | 2017-07-01 23:56 | PN ---
DATE: SUBJECTIVE: The patient chest pain, abdominal discomfort has improved except for a little low subcostal, right-sided and epigastric pain. PHYSICAL EXAMINATION: VITAL SIGNS: Blood pressure 131/81, heart rate is 110, temperature is 98.5 and respiration 18. HEENT: Pale conjunctivae. CHEST: Diminished breath sounds over the left base. HEART: S1 and S2, regular. No precordial rub. ABDOMEN: Soft. EXTREMITIES: Has no edema. LABORATORY DATA: I did reviewed echocardiograph study, which revealed small pericardial effusion, not significantly worse than the preoperative pericardial effusion. If there is any difference, will be very slight increase in the anterior pericardial effusion; however, there is no evidence of tamponade. Official reports still pending. ASSESSMENT: 1. Status post cholecystectomy. 2. Small pericardial effusion. 3. Systemic lupus erythematosus. RECOMMENDATIONS: We will continue current Albuterol inhaler, IV Zithromax 500 mg daily, subcutaneous Lovenox 40 mg once a day, oral Flagyl 500 mg q. 8 hours, IV Rocephin at 1 g daily. I did request incentive spirometry. I will obtain a chest x-ray PA and lateral. Yehuda Damon MD
[2017-07-02] MEDS: Albuterol 0.083% Inhal Sol (2.5 mg/3 mL) UD INH SCH ×4 (01:11→21:04)
[2017-07-02] MEDS: Budesonide 0.5 mg/2 ml Inhal Susp UD INH SCH ×2 (07:42→21:04)
[2017-07-02 08:16] LABS: CHLORIDE 102 mmol/L (98-107)
[2017-07-02 08:17] LABS: POTASSIUM 3.6 mmol/L (3.6-5.2); SODIUM 141 mmol/L (132-148)
[2017-07-02 08:19] LABS: GFR AFRICAN-AMERICAN > 60
[2017-07-02 08:20] LABS: BLOOD UREA NITROGEN 5 mg/dL (7-17); CALCIUM 9.1 mg/dl (8.6-10.4); CARBON DIOXIDE 26 mmol/L (22-30); GLUCOSE,RANDOM 142 mg/dL (65-105)
[2017-07-02] MEDS: Potassium Chloride 20 mEq ER Tab PO SCH (09:39)
[2017-07-02] MEDS: Enoxaparin 40 mg Syringe SC SCH (09:39)
[2017-07-02] MEDS: cefTRIAXone IV 1 gm in Dextros 50 ML IVPB SCH (09:40)
--- NOTE | 2017-07-02 10:09 | RAD ---
HISTORY: effusion COMPARISON: 06/16/2017 TECHNIQUE: Chest PA and lateral FINDINGS: LUNGS: No active pulmonary disease. PLEURA: No significant pleural effusion identified. No pneumothorax apparent. CARDIOVASCULAR: Normal. OSSEOUS STRUCTURES: No significant abnormalities. VISUALIZED UPPER ABDOMEN: Normal. OTHER FINDINGS: None. IMPRESSION: No evidence of pleural effusion. Unremarkable examination.
[2017-07-02] MEDS: Azithromycin 500 MG in Sodium Chloride 0.9% 250 ML IVPB SCH (10:26)
[2017-07-02] MEDS: Simethicone 80 mg Chewtab PO PRN ×2 (10:29→21:51)
[2017-07-02 16:13] VITALS: RESP 20
--- NOTE | 2017-07-02 17:31 | PN ---
DATE: SUBJECTIVE: The patient denies chest pain. She does report subcostal pain. PHYSICAL EXAMINATION VITAL SIGNS: Blood pressure 160/81, heart rate 108, temperature 98.8, respirations 17. HEENT: Pale conjunctiva. CHEST: Clear. HEART: S1 and S2 regular. EXTREMITIES: No edema. LABORATORY DATA: Today's SMA-7 is within normal limits except for glucose of 142 and BUN of 5. Yesterday's chest x-ray revealed no evidence of pleural effusion. Unremarkable with examination. I could not open the study on Internet for some technical reason. Official report of echocardiograph study [id number] impaired systolic function with ejection fraction at 40-45% with moderate hypokineses of septal hole, small pericardial effusion, mild mitral and mild tricuspid insufficiency. ASSESSMENT: 1. Chest pain, myocardial infarction rule out. 2. Mild pericardial effusion. 3. Pneumoperitoneum, potentially spreading to the chest through the lateral mediastinal area and it was probably coefficient but midline by pain with bilateral shoulder pain. 4. Systemic lupus erythematosus. RECOMMENDATION: Continue Coreg 3.125 mg once a day, Crestor at 5 mg once a day, Flagyl 500 mg p.o. q.8 hours, K-Dur 20 mEq once a day, Lovenox 40 mg subcutaneous once a day. Continue IV Rocephin at 1 g daily and Plaquenil at 200 mg twice a day. Yehuda Damon MD
[2017-07-02 17:34] LABS: CHLORIDE 105 mmol/L (98-107)
[2017-07-02 17:35] LABS: POTASSIUM 3.7 mmol/L (3.6-5.2); SODIUM 140 mmol/L (132-148)
[2017-07-02 17:37] LABS: GFR AFRICAN-AMERICAN > 60
[2017-07-02 17:38] LABS: BLOOD UREA NITROGEN 4 mg/dL (7-17); CARBON DIOXIDE 27 mmol/L (22-30); GLUCOSE,RANDOM 96 mg/dL (65-105)
[2017-07-02 17:47] LABS: BASO # 0.1 K/uL (0.0-0.2); BASO % 1.1 % (0.0-2.0); EOS % 0.3 % (0.0-4.0); HEMATOCRIT 24.5 % (34.0-47.0); LYMPH # 1.6 K/uL (1.0-4.3); LYMPH % 13.6 % (20.0-40.0); MEAN CELL VOLUME 85.2 fL (81.0-99.0); MEAN CORPUSCULAR HEMOGLOBIN 28.2 pg (27.0-31.0); MEAN CORPUSCULAR HGB CONC 33.1 g/dL (33.0-37.0); MEAN PLATELET VOLUME 8.7 fL (7.2-11.7); MONO % 8.8 % (0.0-10.0); RED CELL DISTRIBUTION WIDTH 18.2 % (11.5-14.5); WHITE BLOOD COUNT 11.9 K/uL (4.8-10.8)
[2017-07-02 23:58] VITALS: TEMP 98.8
--- NOTE | 2017-07-02 23:58 | CP.PCM.PN ---
Subjective - Date & Time of Evaluation Date of Evaluation: 07/01/17 Time of Evaluation: 18:00 - Subjective Subjective: FEELS ANXIOUS, LESS NAUSEA, LESS COUGH AND NO DYSURIA Objective - Vital Signs/Intake and Output Vital Signs (last 24 hours): Temp Pulse Resp BP Pulse Ox 99.8 F H 84 20 118/77 97 07/02/17 15:12 07/02/17 15:12 07/02/17 15:12 07/02/17 15:12 07/02/17 15:12 - Medications Medications: Current Medications Acetaminophen (Tylenol 325mg Tab) 650 mg PO Q4 PRN PRN Reason: for pain and fever Last Admin: 06/30/17 17:55 Dose: 650 mg Albuterol Sulfate (Albuterol 0.083% Inhal Carmen (2.5 Mg/3 Ml) Ud) 2.5 mg INH RQ6 [facility] Last Admin: 07/02/17 21:04 Dose: 2.5 mg Alprazolam (Xanax) 0.25 mg PO BID PRN PRN Reason: Anxiety Stop: 07/09/17 12:58 Last Admin: 07/02/17 14:03 Dose: 0.25 mg Budesonide (Pulmicort Respules) 0.5 mg INH RQ12 [facility] Last Admin: 07/02/17 21:04 Dose: 0.5 mg Carvedilol (Coreg) 3.125 mg PO BID [facility] Last Admin: 07/02/17 18:25 Dose: 3.125 mg Enoxaparin Sodium (Lovenox) 40 mg SC DAILY [facility] Last Admin: 07/02/17 09:39 Dose: 40 mg Famotidine (Pepcid) 40 mg PO DAILY [facility] Last Admin: 07/02/17 09:39 Dose: 40 mg Hydroxychloroquine Sulfate (Plaquenil) 200 mg PO BID [facility] Last Admin: 07/02/17 18:25 Dose: 200 mg Azithromycin (Zithromax 500mg In Ns Addvantage) 500 mg in 250 mls @ 166.667 mls /hr IV STAT [facility] Ceftriaxone Sodium (Rocephin Iv 1 Gm Duplex) 50 mls @ 100 mls/hr IVPB DAILY [facility] Last Admin: 07/02/17 09:40 Dose: 100 mls/hr Metronidazole (Flagyl) 500 mg PO Q8 [facility] Last Admin: 07/02/17 21:49 Dose: 500 mg Morphine Sulfate (Morphine) 2 mg IV Q4H PRN PRN Reason: Pain, severe (8-10) Last Admin: 07/01/17 05:07 Dose: 2 mg Ondansetron HCl (Zofran Inj) 4 mg IVP Q6H PRN PRN Reason: Nausea/Vomiting Last Admin: 07/02/17 11:29 Dose: 4 mg Potassium Chloride (K-Dur 20 Meq Er Tab) 20 meq PO DAILY [facility] Stop: 07/05/17 07:00 Last Admin: 07/02/17 09:39 Dose: 20 meq Rosuvastatin Calcium (Crestor) 5 mg PO HS [facility] Last Admin: 07/02/17 21:49 Dose: 5 mg Simethicone (Mylicon Chew Tab) 80 mg PO TID PRN PRN Reason: GI distress Last Admin: 07/02/17 21:51 Dose: 80 mg Zolpidem Tartrate (Ambien) 5 mg PO HS PRN PRN Reason: Insomnia Last Admin: 07/02/17 21:49 Dose: 5 mg - Labs Labs: 07/02/17 17:11 07/02/17 17:11 - Constitutional Appears: Non-toxic, No Acute Distress, Cachectic - Head Exam Head Exam: ATRAUMATIC, NORMAL INSPECTION, NORMOCEPHALIC - Eye Exam Eye Exam: EOMI, Normal appearance, PERRL Pupil Exam: NORMAL ACCOMODATION - ENT Exam ENT Exam: Mucous Membranes Moist, Normal Exam, Normal Oropharynx, TM's Normal Bilaterally - Neck Exam Neck Exam: Normal Inspection - Respiratory Exam Respiratory Exam: Clear to Ausculation Bilateral, Rales - Cardiovascular Exam Cardiovascular Exam: REGULAR RHYTHM, +S1, +S2 - GI/Abdominal Exam GI & Abdominal Exam: Soft, Normal Bowel Sounds - Extremities Exam Extremities Exam: Full ROM, Normal Capillary Refill - Neurological Exam Neurological Exam: Alert, Awake, CN II-XII Intact, Normal Gait, Oriented x3 - Psychiatric Exam Psychiatric exam: Anxious - Skin Skin Exam: Intact Assessment and Plan (1) Pleural effusion Status: Acute (2) UTI (urinary tract infection) Status: Acute (3) SLE exacerbation Status: Chronic (4) Dehydration Status: Resolved
--- NOTE | 2017-07-02 23:59 | CP.PCM.PN ---
Subjective - Date & Time of Evaluation Date of Evaluation: 07/02/17 Time of Evaluation: 18:00 - Subjective Subjective: LEUKOCYTOSIS, LESS ANXIOUS, NO FEVER, LESS COUGH,LOW GRADE FEVER Objective - Vital Signs/Intake and Output Vital Signs (last 24 hours): Temp Pulse Resp BP Pulse Ox 99.8 F H 84 20 118/77 97 07/02/17 15:12 07/02/17 15:12 07/02/17 15:12 07/02/17 15:12 07/02/17 15:12 - Medications Medications: Current Medications Acetaminophen (Tylenol 325mg Tab) 650 mg PO Q4 PRN PRN Reason: for pain and fever Last Admin: 06/30/17 17:55 Dose: 650 mg Albuterol Sulfate (Albuterol 0.083% Inhal Carmen (2.5 Mg/3 Ml) Ud) 2.5 mg INH RQ6 [facility] Last Admin: 07/02/17 21:04 Dose: 2.5 mg Alprazolam (Xanax) 0.25 mg PO BID PRN PRN Reason: Anxiety Stop: 07/09/17 12:58 Last Admin: 07/02/17 14:03 Dose: 0.25 mg Budesonide (Pulmicort Respules) 0.5 mg INH RQ12 [facility] Last Admin: 07/02/17 21:04 Dose: 0.5 mg Carvedilol (Coreg) 3.125 mg PO BID [facility] Last Admin: 07/02/17 18:25 Dose: 3.125 mg Enoxaparin Sodium (Lovenox) 40 mg SC DAILY [facility] Last Admin: 07/02/17 09:39 Dose: 40 mg Famotidine (Pepcid) 40 mg PO DAILY [facility] Last Admin: 07/02/17 09:39 Dose: 40 mg Hydroxychloroquine Sulfate (Plaquenil) 200 mg PO BID [facility] Last Admin: 07/02/17 18:25 Dose: 200 mg Azithromycin (Zithromax 500mg In Ns Addvantage) 500 mg in 250 mls @ 166.667 mls /hr IV STAT [facility] Ceftriaxone Sodium (Rocephin Iv 1 Gm Duplex) 50 mls @ 100 mls/hr IVPB DAILY [facility] Last Admin: 07/02/17 09:40 Dose: 100 mls/hr Metronidazole (Flagyl) 500 mg PO Q8 [facility] Last Admin: 07/02/17 21:49 Dose: 500 mg Morphine Sulfate (Morphine) 2 mg IV Q4H PRN PRN Reason: Pain, severe (8-10) Last Admin: 07/01/17 05:07 Dose: 2 mg Ondansetron HCl (Zofran Inj) 4 mg IVP Q6H PRN PRN Reason: Nausea/Vomiting Last Admin: 07/02/17 11:29 Dose: 4 mg Potassium Chloride (K-Dur 20 Meq Er Tab) 20 meq PO DAILY [facility] Stop: 07/05/17 07:00 Last Admin: 07/02/17 09:39 Dose: 20 meq Rosuvastatin Calcium (Crestor) 5 mg PO HS [facility] Last Admin: 07/02/17 21:49 Dose: 5 mg Simethicone (Mylicon Chew Tab) 80 mg PO TID PRN PRN Reason: GI distress Last Admin: 07/02/17 21:51 Dose: 80 mg Zolpidem Tartrate (Ambien) 5 mg PO HS PRN PRN Reason: Insomnia Last Admin: 07/02/17 21:49 Dose: 5 mg - Labs Labs: 07/02/17 17:11 07/02/17 17:11 - Head Exam Head Exam: ATRAUMATIC, NORMAL INSPECTION, NORMOCEPHALIC - Eye Exam Eye Exam: EOMI, Normal appearance, PERRL Pupil Exam: NORMAL ACCOMODATION - ENT Exam ENT Exam: Mucous Membranes Moist, Normal Exam, Normal Oropharynx, TM's Normal Bilaterally - Neck Exam Neck Exam: Full ROM, Normal Inspection - Respiratory Exam Respiratory Exam: Clear to Ausculation Bilateral, NORMAL BREATHING PATTERN - Cardiovascular Exam Cardiovascular Exam: REGULAR RHYTHM, +S1, +S2 - GI/Abdominal Exam GI & Abdominal Exam: Normal Bowel Sounds - Rectal Exam Rectal Exam: NORMAL INSPECTION - Extremities Exam Extremities Exam: Normal Capillary Refill - Neurological Exam Neurological Exam: Alert, Awake, CN II-XII Intact, Normal Gait, Oriented x3 Neuro motor strength exam: Left Upper Extremity: 5, Right Upper Extremity: 5, Left Lower Extremity: 5, Right Lower Extremity: 5 - Psychiatric Exam Psychiatric exam: Anxious, Flat Affect - Skin Skin Exam: Intact Assessment and Plan (1) Pleural effusion Status: Acute (2) UTI (urinary tract infection) Status: Acute (3) SLE exacerbation Status: Chronic (4) Dehydration Status: Resolved
[2017-07-03] MEDS: Albuterol 0.083% Inhal Sol (2.5 mg/3 mL) UD INH SCH ×3 (00:59→13:31)
[2017-07-03] MEDS: Simethicone 80 mg Chewtab PO PRN ×2 (05:59→10:14)
[2017-07-03 06:22] LABS: BASO # 0.1 K/uL (0.0-0.2); BASO % 1.2 % (0.0-2.0); EOS # 0.1 K/uL (0.0-0.7); EOS % 0.8 % (0.0-4.0); LYMPH # 1.7 K/uL (1.0-4.3); LYMPH % 15.7 % (20.0-40.0); MEAN CELL VOLUME 84.9 fL (81.0-99.0); MEAN CORPUSCULAR HEMOGLOBIN 28.2 pg (27.0-31.0); MEAN CORPUSCULAR HGB CONC 33.3 g/dL (33.0-37.0); MEAN PLATELET VOLUME 8.5 fL (7.2-11.7); MONO # 0.8 K/uL (0.0-0.8); MONO % 7.4 % (0.0-10.0); NRBC % 0.1 % (0.0-2.0); WHITE BLOOD COUNT 10.8 K/uL (4.8-10.8)
[2017-07-03] MEDS: Budesonide 0.5 mg/2 ml Inhal Susp UD INH SCH (07:26)
[2017-07-03 07:46] VITALS: BP 128/80; PULSE 90; O2SAT 100
[2017-07-03] MEDS: Potassium Chloride 20 mEq ER Tab PO SCH (10:14)
[2017-07-03] MEDS: Enoxaparin 40 mg Syringe SC SCH (10:14)
[2017-07-03] MEDS: cefTRIAXone IV 1 gm in Dextros 50 ML IVPB SCH (10:53)
--- NOTE | 2017-07-03 12:45 | CP.PCM.PN ---
Subjective - Date & Time of Evaluation Date of Evaluation: 07/03/17 Time of Evaluation: 11:00 - Subjective Subjective: Patient seen and examined today, states feeling much better, less anxious , denies any abdominal pain, N/V/D, tolerating diet , + bm , a febrile WBC - WNL Objective - Vital Signs/Intake and Output Vital Signs (last 24 hours): Temp Pulse Resp BP Pulse Ox 98.8 F 90 20 128/80 100 07/02/17 23:00 07/03/17 07:00 07/03/17 07:00 07/03/17 07:00 07/03/17 07:00 - Medications Medications: Current Medications Acetaminophen (Tylenol 325mg Tab) 650 mg PO Q4 PRN PRN Reason: for pain and fever Last Admin: 06/30/17 17:55 Dose: 650 mg Albuterol Sulfate (Albuterol 0.083% Inhal Carmen (2.5 Mg/3 Ml) Ud) 2.5 mg INH RQ6 [facility] Last Admin: 07/03/17 07:25 Dose: 2.5 mg Alprazolam (Xanax) 0.25 mg PO BID PRN PRN Reason: Anxiety Stop: 07/09/17 12:58 Last Admin: 07/03/17 12:37 Dose: 0.25 mg Budesonide (Pulmicort Respules) 0.5 mg INH RQ12 [facility] Last Admin: 07/03/17 07:26 Dose: 0.5 mg Carvedilol (Coreg) 3.125 mg PO BID [facility] Last Admin: 07/03/17 10:14 Dose: 3.125 mg Enoxaparin Sodium (Lovenox) 40 mg SC DAILY [facility] Last Admin: 07/03/17 10:14 Dose: 40 mg Famotidine (Pepcid) 40 mg PO DAILY [facility] Last Admin: 07/03/17 10:14 Dose: 40 mg Hydroxychloroquine Sulfate (Plaquenil) 200 mg PO BID [facility] Last Admin: 07/03/17 10:14 Dose: 200 mg Azithromycin (Zithromax 500mg In Ns Addvantage) 500 mg in 250 mls @ 166.667 mls /hr IV STAT [facility] Ceftriaxone Sodium (Rocephin Iv 1 Gm Duplex) 50 mls @ 100 mls/hr IVPB DAILY [facility] Last Admin: 07/03/17 10:53 Dose: Not Given Metronidazole (Flagyl) 500 mg PO Q8 [facility] Last Admin: 07/03/17 05:59 Dose: 500 mg Morphine Sulfate (Morphine) 2 mg IV Q4H PRN PRN Reason: Pain, severe (8-10) Last Admin: 07/01/17 05:07 Dose: 2 mg Ondansetron HCl (Zofran Inj) 4 mg IVP Q6H PRN PRN Reason: Nausea/Vomiting Last Admin: 07/03/17 05:59 Dose: 4 mg Potassium Chloride (K-Dur 20 Meq Er Tab) 20 meq PO DAILY [facility] Stop: 07/05/17 07:00 Last Admin: 07/03/17 10:14 Dose: 20 meq Rosuvastatin Calcium (Crestor) 5 mg PO HS [facility] Last Admin: 07/02/17 21:49 Dose: 5 mg Simethicone (Mylicon Chew Tab) 80 mg PO TID PRN PRN Reason: GI distress Last Admin: 07/03/17 10:14 Dose: 80 mg Zolpidem Tartrate (Ambien) 5 mg PO HS PRN PRN Reason: Insomnia Last Admin: 07/02/17 21:49 Dose: 5 mg - Labs Labs: 07/03/17 06:10 07/02/17 17:11 Assessment and Plan - Assessment and Plan (Free Text) Assessment: 51 y/o female with a PMHx of Lupus, and chronic cholecystitis s/p laparoscopic cholecystectomy last Friday admitted for pleuritic left chest pain , pleural effusion, and pericardial effusion a febrile repeat echo- EF 40-45% repear cxr- - No evidence of pleural effusion. Unremarkable examination. seen by Dr. Gates, today cleared for discharge home today and f/u with Dr. Gates office in 1 week
--- NOTE | 2017-07-03 15:37 | PN ---
SUBJECTIVE: The patient's lower costal chest pain has improved and she denied any shortness of breath. PHYSICAL EXAMINATION: VITAL SIGNS: Stable. HEENT: Normocephalic. NECK: No JVD. CHEST: Clear. HEART: S1 and S2 regular. No gallop or pericardial rub. EXTREMITIES: No edema. ASSESSMENT: 1. Mild pericardial effusion. 2. Systemic lupus erythematosus. 3. Status post laparoscopic cholecystectomy. RECOMMENDATIONS: No further cardiac workup is indicated. The patient was recommended to undergo followup echocardiograph study in 4 to 5 months, and if any recurrence of severe chest pain or shortness of breath, she should present back to the emergency room. In the meantime, the patient will be maintained on Plaquenil. Yehuda Damon MD
--- NOTE | 2017-07-03 22:21 | CP.PCM.DIS ---
Provider - Provider Date of Admission: 06/28/17 22:59 Attending physician: Garcia Gates MD Time Spent in preparation of Discharge (in minutes): 30 Diagnosis - Discharge Diagnosis (1) Pleural effusion Status: Acute Priority: High (2) UTI (urinary tract infection) Status: Acute Priority: High (3) SLE exacerbation Status: Chronic Priority: Medium (4) Dehydration Status: Resolved Priority: High Hospital Course - Lab Results Lab Results: Micro Results 07/01/17 19:13 Urine Urine Culture - Final Yeast Species 06/29/17 08:00 Blood Blood Culture - Preliminary NO GROWTH AFTER 4 DAYS 06/29/17 08:00 Blood Blood Culture - Preliminary NO GROWTH AFTER 4 DAYS 06/29/17 Unknown Sputum Gram Stain - Final 06/29/17 Unknown Sputum Sputum Culture - Final NORMAL ORAL MERLIN 06/28/17 Unknown Urine,Clean Catch Urine Culture - Final Escherichia Coli Most Recent Lab Values WBC 10.8 K/uL (4.8-10.8) 07/03/17 06:10 RBC 3.18 Mil/uL (3.80-5.20) L 07/03/17 06:10 Hgb 9.0 g/dL (11.0-16.0) L 07/03/17 06:10 Hct 27.0 % (34.0-47.0) L 07/03/17 06:10 MCV 84.9 fL (81.0-99.0) 07/03/17 06:10 MCH 28.2 pg (27.0-31.0) 07/03/17 06:10 MCHC 33.3 g/dL (33.0-37.0) 07/03/17 06:10 RDW 19.0 % (11.5-14.5) H 07/03/17 06:10 Plt Count 632 K/uL (130-400) H 07/03/17 06:10 MPV 8.5 fL (7.2-11.7) 07/03/17 06:10 Neut % (Auto) 74.9 % (50.0-75.0) 07/03/17 06:10 Lymph % (Auto) 15.7 % (20.0-40.0) L 07/03/17 06:10 [place] % (Auto) 7.4 % (0.0-10.0) 07/03/17 06:10 Eos % (Auto) 0.8 % (0.0-4.0) 07/03/17 06:10 Baso % (Auto) 1.2 % (0.0-2.0) 07/03/17 06:10 Neut # 8.1 K/uL (1.8-7.0) H 07/03/17 06:10 Lymph # 1.7 K/uL (1.0-4.3) 07/03/17 06:10 [place] # 0.8 K/uL (0.0-0.8) 07/03/17 06:10 Eos # 0.1 K/uL (0.0-0.7) 07/03/17 06:10 Baso # 0.1 K/uL (0.0-0.2) 07/03/17 06:10 Neutrophils % (Manual) 80 % (50-75) H 06/29/17 08:00 Lymphocytes % (Manual) 15 % (20-40) L 06/29/17 08:00 Monocytes % (Manual) 5 % (0-10) 06/29/17 08:00 Toxic Granulation Present 06/29/17 08:00 Platelet Estimate Increased (NORMAL) H 06/29/17 08:00 Large Platelets Present 06/29/17 08:00 Polychromasia Slight 06/29/17 08:00 Hypochromasia (manual) Slight 06/29/17 08:00 Poikilocytosis (manual Slight 06/29/17 08:00 Anisocytosis (manual) Moderate 06/29/17 08:00 Microcytosis (manual) Slight 06/28/17 20:01 Target Cells Slight 06/29/17 08:00 Schistocytes Slight 06/29/17 08:00 D-Dimer, Quantitative 2077 ng/mlDDU (0-243) H 06/28/17 20:01 Sodium 140 mmol/L (132-148) 07/02/17 17:11 Potassium 3.7 mmol/L (3.6-5.2) 07/02/17 17:11 Chloride 105 mmol/L (98-107) 07/02/17 17:11 Carbon Dioxide 27 mmol/L (22-30) 07/02/17 17:11 Anion Gap 11 (10-20) 07/02/17 17:11 BUN 4 mg/dL (7-17) L 07/02/17 17:11 Creatinine 0.7 MG/DL (0.7-1.2) 07/02/17 17:11 Est GFR ( Amer) > 60 07/02/17 17:11 Est GFR (Non-Af Amer) > 60 07/02/17 17:11 Random Glucose 96 mg/dL (65-105) 07/02/17 17:11 Calcium 9.0 mg/dl (8.6-10.4) 07/02/17 17:11 Total Bilirubin 0.5 mg/dL (0.2-1.3) 06/28/17 20:01 AST 14 U/L (14-36) 06/28/17 20:01 ALT 15 U/L (9-52) 06/28/17 20:01 Alkaline Phosphatase 79 U/L (38-126) 06/28/17 20:01 Total Creatine Kinase 30 U/L (30-135) 06/29/17 08:00 CK-MB (Mass) < 0.22 ng/mL (0.0-3.38) 06/29/17 08:00 Troponin I < 0.0120 ng/mL (0.00-0.120) 06/28/17 20:01 Troponin I, Quant < 0.0120 ng/mL (0.00-0.120) 06/29/17 08:00 Total Protein 6.9 g/dL (6.3-8.3) 06/28/17 20:01 Albumin 2.9 g/dL (3.5-5.0) L 06/28/17 20:01 Globulin 4.0 gm/dL (2.2-3.9) H 06/28/17 20:01 Albumin/Globulin Ratio 0.7 (1.0-2.1) L 06/28/17 20:01 Lipase 193 U/L (23-300) 06/28/17 20:01 Urine Color Yellow (YELLOW) 07/01/17 19:46 Urine Clarity Clear (Clear) 07/01/17 19:46 Urine pH 6.0 (5.0-8.0) 07/01/17 19:46 Ur Specific [place] 1.011 (1.003-1.030) 07/01/17 19:46 Urine Protein 1+ mg/dL (NEGATIVE) H 07/01/17 19:46 Urine Glucose (UA) Normal mg/dL (Normal) 07/01/17 19:46 Urine Ketones Trace mg/dL (NEGATIVE) 07/01/17 19:46 Urine Blood Negative (NEGATIVE) 07/01/17 19:46 Urine Nitrate Negative (NEGATIVE) 07/01/17 19:46 Urine Bilirubin Negative (NEGATIVE) 07/01/17 19:46 Urine Urobilinogen Normal mg/dL (0.2-1.0) 07/01/17 19:46 Ur Leukocyte Esterase Trace Michael/uL (Negative) H 07/01/17 19:46 Urine WBC (Auto) 2 /hpf (0-5) 07/01/17 19:46 Urine RBC (Auto) 1 /hpf (0-3) 07/01/17 19:46 Ur Squamous Epith Cells 3 /hpf (0-5) 07/01/17 19:46 Urine Bacteria Rare (<OCC) 07/01/17 19:46 Urine HCG, Qual Negative (NEGATIVE) 06/28/17 20:01 - Hospital Course Hospital Course: ADMITTED WITH WEAKNESS COUGH AND DYSURIA AND SHE WAS GIVEN ANTIBIOTICS AND DID WELL AND SHE IS FOR DISCHARGE Discharge Exam - Head Exam Head Exam: ATRAUMATIC, NORMAL INSPECTION, NORMOCEPHALIC - Eye Exam Eye Exam: EOMI, Normal appearance, PERRL Pupil Exam: NORMAL ACCOMODATION - ENT Exam ENT Exam: Mucous Membranes Moist, Normal Exam, Normal Oropharynx, TM's Normal Bilaterally - Neck Exam Neck exam: Normal Inspection - Respiratory Exam Respiratory Exam: Clear to PA & Lateral, NORMAL BREATHING PATTERN - Cardiovascular Exam Cardiovascular Exam: REGULAR RHYTHM, +S1, +S2 - GI/Abdominal Exam GI & Abdominal Exam: Normal Bowel Sounds - Rectal Exam Rectal Exam: NORMAL INSPECTION - Neurological Exam Neurological exam: Alert, CN II-XII Intact, Normal Gait, Oriented x3, Reflexes Normal - Psychiatric Exam Psychiatric exam: Anxious - Skin Skin Exam: Intact Discharge Plan - Discharge Medications Prescriptions: ALPRAZolam [Xanax] 0.25 mg PO BID PRN #10 tab PRN Reason: Anxiety - Follow Up Plan Condition: STABLE Disposition: HOME/ ROUTINE Instructions: Alprazolam (By mouth), Metronidazole (By mouth), Heart Failure ( DC), Urinary Tract Infection in Women (DC), Low Fat Diet (DC), Heart Healthy Diet (DC), Pleural Effusion (DC), Pericardial Effusion (DC) Additional Instructions: Please follow a low fat diet Please f/u with Dr. Gates office in 1 week Continue medication as per Med. Rec. Referrals: Garcia Gates MD [Staff Provider] -
== END 2017-07-03 14:35 | disposition home or self-care (01) ==
LOC: C.ER 18:43 → C.9E 22:59 → INTOOBSV 22:59 → C.6T 22:59
PROVIDERS: ADMIT Internal Medicine; ATTEND Internal Medicine
DX: I31.3 Pericardial effusion (noninflammatory) (principal); N39.0 Urinary tract infection, site not specified; I13.0 Hypertensive heart and chronic kidney disease with heart failure and stage 1 through stage 4 chronic kidney disease, or unspecified chronic kidney disease; I50.9 Heart failure, unspecified; M32.9 Systemic lupus erythematosus, unspecified; J43.9 Emphysema, unspecified; E86.0 Dehydration; N18.9 Chronic kidney disease, unspecified; J45.909 Unspecified asthma, uncomplicated; R30.0 Dysuria; F17.210 Nicotine dependence, cigarettes, uncomplicated; Z90.49 Acquired absence of other specified parts of digestive tract; K21.9 Gastro-esophageal reflux disease without esophagitis; K59.00 Constipation, unspecified; K66.8 Other specified disorders of peritoneum; Z87.440 Personal history of urinary (tract) infections
CPT/HCPCS: 36415; 71020; 71275; 80048; 80053; 81001; 83690; 84484; 84703; 85025; 85378; 87040; 87070; 87086; 87181; 93005; 93306; 94640; 94760; 96361; 96365; 96366; 96367; 96372; 96375; 96376; 97110; 97116; 97162; 99284; G0378; G8978; G8979; J0456; J0696; J1650; J2270; J2405; J7040; J7050; Q9967

== ENCOUNTER 2017-07-10 17:24 | Inpatient (IN) | payer MEDICARE ==
[2017-07-10 17:24] VITALS: BMI 20.7
[2017-07-10] MEDS ORDERED: Sodium Chloride 0.9% 1,000 ML IV ONE (18:27)
[2017-07-10] MEDS ORDERED: Aspirin 325 mg EC Tablets PO STA (18:27)
[2017-07-10 19:00] LABS: BASO # 0.1 K/uL (0.0-0.2); BASO % 0.7 % (0.0-2.0); EOS # 0.1 K/uL (0.0-0.7); HEMATOCRIT 26.3 % (34.0-47.0); LYMPH # 2.2 K/uL (1.0-4.3); LYMPH % 14.8 % (20.0-40.0); MEAN CELL VOLUME 84.5 fL (81.0-99.0); MEAN CORPUSCULAR HEMOGLOBIN 28.1 pg (27.0-31.0); MEAN CORPUSCULAR HGB CONC 33.2 g/dL (33.0-37.0); MEAN PLATELET VOLUME 7.9 fL (7.2-11.7); MONO # 1.3 K/uL (0.0-0.8); MONO % 8.7 % (0.0-10.0); RED CELL DISTRIBUTION WIDTH 18.9 % (11.5-14.5); WHITE BLOOD COUNT 14.8 K/uL (4.8-10.8)
[2017-07-10 19:05] LABS: RBC URINE 2 /hpf (0-3); TRANSITIONAL EPITHIAL < 1 /hpf (0-3); URINE BACTERIA RARE (<OCC); URINE BILIRUBIN NEGATIVE (NEGATIVE); URINE BLOOD NEGATIVE (NEGATIVE); URINE COLOR Yellow (YELLOW); URINE GLUCOSE (UA) NORMAL (Normal); URINE KETONE NEGATIVE (NEGATIVE); URINE LEUKOCYTE ESTERASE NEG Leu/uL (Negative); URINE PROTEIN NEGATIVE (NEGATIVE); URINE UROBILINOGEN NORMAL mg/dL (0.2-1.0); WBC URINE 2 /hpf (0-5)
[2017-07-10 19:06] LABS: VENOUS BLOOD GAS BASE EXCESS 6.1 mmol/L (0.0-2.0); VENOUS BLOOD GAS PCO2 38 mmHg (40-60)
[2017-07-10] MEDS ORDERED: Sodium Chloride 0.9% 1,000 ML ONE (19:07)
[2017-07-10 19:10] LABS: CHLORIDE 105 mmol/L (98-107)
[2017-07-10 19:11] LABS: POTASSIUM 3.8 mmol/L (3.6-5.2); SODIUM 140 mmol/L (132-148)
[2017-07-10 19:13] LABS: ALB/GLOB RATIO 0.8 (1.0-2.1); ALKALINE PHOSPHATASE 81 U/L (38-126); ALT/SGPT 17 U/L (9-52); AST/SGOT 17 U/L (14-36); BILIRUBIN,TOTAL 0.4 mg/dL (0.2-1.3); BLOOD UREA NITROGEN 5 mg/dL (7-17); CARBON DIOXIDE 25 mmol/L (22-30); GFR AFRICAN-AMERICAN > 60; GLUCOSE,RANDOM 108 mg/dL (65-105); TOTAL PROTEIN 7.3 g/dL (6.3-8.3)
[2017-07-10 19:14] LABS: CALCIUM 8.7 mg/dl (8.6-10.4)
[2017-07-10] MEDS ORDERED: cefTRIAXone IV 1 gm in Dextros 50 ML IVPB STA (19:49)
[2017-07-10] MEDS ORDERED: Azithromycin 500mg/250ML NS 500 MG/250 ML BAG IVPB STA (19:49)
[2017-07-10] MEDS ORDERED: cefTRIAXone IV 1 gm in Dextros 50 ML IVPB ONE (19:56)
--- NOTE | 2017-07-10 20:02 | C.PDOC ---
Time Seen by Provider: 07/10/17 18:02 Chief Complaint (Nursing): Fever History Per: Patient Onset/Duration Of Symptoms: Days (about 1 week) Current Symptoms Are (Timing): Still Present Location Of Pain: Other (Left lateral chest) Associated Symptoms: Fever, Cough, Sputum, Nasal Congestion Severity: Moderate Recent travel outside of the [place]: No Additional History Per: Prior Records Past Medical History Reviewed: Historical Data, Nursing Documentation, Vital Signs Vital Signs: Last Vital Signs Temp 101.5 F H 07/10/17 19:46 Pulse 92 H 07/10/17 19:46 Resp 20 07/10/17 19:46 BP 108/63 07/10/17 19:46 Pulse Ox 100 07/10/17 20:09 - Medical History PMH: CHF, HTN, Chronic Kidney Disease Other PMH: Lupus Surgical History: Appendectomy, Cholecystectomy (ciera lap 06/23/2017) Family History: States: Unknown Family Hx - Social History Hx Alcohol Use: No Hx Substance Use: Yes (marijuana) - Immunization History Hx Tetanus Toxoid Vaccination: Yes Hx Influenza Vaccination: No Hx Pneumococcal Vaccination: No Review Of Systems Except As Marked, All Systems Reviewed And Found Negative. Constitutional: Positive for: Fever, Weakness Cardiovascular: Positive for: Chest Pain (left lateral) Respiratory: Positive for: Cough, Shortness of Breath, Sputum. Negative for: Hemoptysis Gastrointestinal: Positive for: Nausea. Negative for: Abdominal Pain Genitourinary: Negative for: Dysuria Musculoskeletal: Negative for: Neck Pain Skin: Negative for: Rash Neurological: Negative for: Weakness, Numbness, Seizures, Altered Mental Status Physical Exam - Physical Exam Appears: Chronically Ill Skin: Normal Color, Warm, Dry, No Rash Head: Atraumatic, Normacephalic Eye(s): bilateral: Normal Inspection, PERRL, EOMI Neck: Normal ROM, Supple Cardiovascular: Rhythm Regular Respiratory: No Accessory Muscle Use, Rales (on right side?) Gastrointestinal/Abdominal: Soft, No Tenderness Back: No CVA Tenderness Extremity: Normal ROM Neurological/Psych: Oriented x3, Normal Speech, Normal Cognition, Normal Motor, Normal Sensation ED Course And Treatment - Laboratory Results Result Diagrams: 07/10/17 18:54 07/10/17 18:54 Lab Interpretation: Abnormal Interpretation Of Abnormal: Leukocytosis. Anemia. Urine POC: Negative ECG: Interpreted By Me, Viewed By Me ECG Rhythm: Sinus Rhythm, Nonspecific Changes ECG Interpretation: No Acute Changes Rate From EC O2 Sat by Pulse Oximetry: 100 Pulse Ox Interpretation: Normal - Radiology CXR: Interpreted by Me, Viewed By Me CXR Interpretation: Yes: No Acute Disease Progress - Interventions Interventions:: Observation, Intravenous fluid, Oxygen - Medications Administered Oral: Aspirin - Data Reviewed Data Reviewed: Lab, Diagnostic imaging, EKG, Old records - Patient Status Patient status: Partially improved - Continuity of Care Discussed patient case with:: Patient, ED Nurse, PMD - Patient Plan Patient Plan: Admission Disposition Discussed With : Garcia Gates Comment: He accepted pt on his service. He wants pt to receive Rocephin and Zithromax. Doctor Will See Patient In The: Hospital Counseled Patient/Family Regarding: Studies Performed, Diagnosis - Disposition Disposition: HOSPITALIZED Disposition Time: 20:10 Condition: FAIR - Clinical Impression Clinical Impression: Fever of unknown origin (FUO), Leukocytosis
[2017-07-10] MEDS ORDERED: Azithromycin 500mg/250ML NS 500 MG/250 ML BAG IVPB ONE (20:11)
[2017-07-10] MEDS ORDERED: Albuterol 0.083% Inhal Sol (2.5 mg/3 mL) UD INH PRN (22:15)
--- NOTE | 2017-07-10 22:31 | CP.PCM.HP ---
History of Present Illness - History of Present Illness History of Present Illness: 51 Y/O BF WITH SLE, ANXIETY, DRUG ABUSE AND RECENT CHOLECYSTECTOMY AND SHE CAME BACK WITH COUGH, FEVER, WEAKNESS AND HOARSENESS Present on Admission - Present on Admission Any Indicators Present on Admission: No History of DVT/PE: No History of Uncontrolled Diabetes: No Urinary Catheter: No Decubitus Ulcer Present: No Review of Systems - Constitutional Constitutional: Anorexia, Headache, Malaise, Night Sweats, Weight Loss - EENT Eyes: Dry Eye - Respiratory Respiratory: Cough, Chest Congestion - Gastrointestinal Gastrointestinal: Abdominal Pain, Belching, Bloating Past Patient History - Infectious Disease Hx of Infectious Diseases: None - Past Medical History & Family History Past Medical History?: Yes - Past Social History Smoking Status: Former Smoker - CARDIAC Hx Congestive Heart Failure: Yes Hx Hypertension: Yes - PULMONARY Hx Respiratory Disorders: No - NEUROLOGICAL Hx Neurological Disorder: No - HEENT Hx HEENT Problems: Yes Hx Cataracts: Yes - RENAL Hx Chronic Kidney Disease: Yes - ENDOCRINE/METABOLIC Hx Endocrine Disorders: Yes Hx Systemic Lupus Erythematosus: Yes - HEMATOLOGICAL/ONCOLOGICAL Hx Blood Disorders: Yes Other/Comment: systemic lupus - INTEGUMENTARY Hx Dermatological Problems: No - MUSCULOSKELETAL/RHEUMATOLOGICAL Hx Musculoskeletal Disorders: Yes Hx Falls: Yes Other/Comment: difficulty ambulating - GASTROINTESTINAL Hx Gastrointestinal Disorders: Yes Hx Gastroesophageal Reflux: Yes Other/Comment: gerd - GENITOURINARY/GYNECOLOGICAL Hx Genitourinary Disorders: Yes Hx Urinary Tract Infection: Yes - PSYCHIATRIC Hx Substance Use: Yes (marijuana) - SURGICAL HISTORY Hx Appendectomy: Yes Hx Cholecystectomy: Yes (ciera keller 06/23/2017) - ANESTHESIA Hx Anesthesia: Yes Hx Anesthesia Reactions: No Hx Malignant Hyperthermia: No Meds Allergies/Adverse Reactions: Allergies Allergy/AdvReac Type Severity Reaction Status Date / Time lactose Allergy Intermediate NAUSEA Verified 07/10/17 17:34 latex Allergy Intermediate RASH Verified 07/10/17 17:34 Physical Exam - Constitutional Appears: Non-toxic, No Acute Distress, Chronically Ill - Head Exam Head Exam: ATRAUMATIC, NORMAL INSPECTION, NORMOCEPHALIC - Eye Exam Eye Exam: EOMI, Normal appearance, PERRL Pupil Exam: NORMAL ACCOMODATION - ENT Exam ENT Exam: Mucous Membranes Moist, Normal Exam, Normal Oropharynx, TM's Normal Bilaterally - Respiratory Exam Respiratory Exam: Clear to Auscultation Bilateral, NORMAL BREATHING PATTERN - Cardiovascular Exam Cardiovascular Exam: REGULAR RHYTHM, +S1, +S2 - GI/Abdominal Exam GI & Abdominal Exam: Normal Bowel Sounds - Rectal Exam Rectal Exam: NORMAL INSPECTION - Back Exam Back exam: NORMAL INSPECTION - Neurological Exam Neurological exam: Alert, CN II-XII Intact, Normal Gait, Oriented x3, Reflexes Normal - Psychiatric Exam Psychiatric exam: Flat Affect - Skin Skin Exam: Dry, Intact Results - Vital Signs Recent Vital Signs: Last Vital Signs Temp 99.2 F 07/10/17 20:53 Pulse 68 07/10/17 20:53 Resp 18 07/10/17 20:53 BP 116/78 07/10/17 20:53 Pulse Ox 100 07/10/17 20:53 - Labs Result Diagrams: 07/12/17 08:23 07/12/17 08:23 Assessment & Plan (1) Abdominal pain Assessment and Plan: S/P OR Status: Acute Priority: High (2) Dehydration Status: Acute Priority: High (3) Pleural effusion Assessment and Plan: POST OP, SLE Status: Acute Priority: High (4) SLE exacerbation Status: Chronic Priority: Medium
[2017-07-10] MEDS: Dextrose 5%/0.45% NS 1,000 ML IV SCH (22:42)
--- NOTE | 2017-07-11 07:27 | RAD ---
PROCEDURE: CHEST RADIOGRAPH, 1 VIEW HISTORY: Left chest pain, fever, cough COMPARISON: Chest radiographs 07/01/2017. FINDINGS: LUNGS: No acute infiltrate is appreciated bilaterally. PLEURA: No pneumothorax or pleural fluid seen. CARDIOVASCULAR: Normal. OSSEOUS STRUCTURES: No significant abnormalities. VISUALIZED UPPER ABDOMEN: Normal. OTHER FINDINGS: None. IMPRESSION: No interval acute infiltrate or pleural effusion bilaterally compared her chest radiographs 07/01/2017.
[2017-07-11 07:37] LABS: BASO % 0.3 % (0.0-2.0); EOS # 0.1 K/uL (0.0-0.7); EOS % 1.3 % (0.0-4.0); HEMATOCRIT 23.5 % (34.0-47.0); LYMPH # 1.3 K/uL (1.0-4.3); LYMPH % 13.3 % (20.0-40.0); MEAN CELL VOLUME 85.3 fL (81.0-99.0); MEAN CORPUSCULAR HEMOGLOBIN 27.9 pg (27.0-31.0); MEAN CORPUSCULAR HGB CONC 32.8 g/dL (33.0-37.0); MEAN PLATELET VOLUME 8.5 fL (7.2-11.7); MONO # 0.9 K/uL (0.0-0.8); MONO % 9.1 % (0.0-10.0); RED CELL DISTRIBUTION WIDTH 18.9 % (11.5-14.5); WHITE BLOOD COUNT 9.9 K/uL (4.8-10.8)
[2017-07-11 07:39] LABS: CHLORIDE 107 mmol/L (98-107); POTASSIUM 3.5 mmol/L (3.6-5.2); SODIUM 140 mmol/L (132-148)
[2017-07-11 07:42] LABS: CARBON DIOXIDE 25 mmol/L (22-30); GFR AFRICAN-AMERICAN > 60
[2017-07-11 07:43] LABS: BLOOD UREA NITROGEN 3 mg/dL (7-17); CALCIUM 8.3 mg/dl (8.6-10.4); GLUCOSE,RANDOM 98 mg/dL (65-105)
[2017-07-11] MEDS: Dextrose 5%/0.45% NS 1,000 ML IV SCH ×2 (08:15→15:03)
[2017-07-11] MEDS: Enoxaparin 40 mg Syringe SC SCH (10:07)
[2017-07-11] MEDS: Azithromycin 500 MG in Sodium Chloride 0.9% 250 ML IVPB SCH ×2 (10:13→10:15)
[2017-07-11 12:05] LABS: IRON 13 ug/dL (37-170)
[2017-07-11] MEDS ORDERED: Potassium Chloride 20 mEq ER Tab PO ONE (14:00)
[2017-07-11] MEDS ORDERED: Fluconazole IV 200mg/100 ml NS 100 MG in Premixed IV 1 EA IVPB SCH (16:30)
[2017-07-11] MEDS: Fluconazole IV 100mg/50 ml NS 50 ML IVPB SCH (18:21)
--- NOTE | 2017-07-11 19:11 | CARD ---
APPROVED REPORT EKG Measurement Heart [id number] <Conclusion> Normal sinus rhythm Possible Left atrial enlargement Nonspecific T wave abnormality Abnormal ECG
--- NOTE | 2017-07-11 21:50 | CP.PCM.CON ---
History of Present Illness - History of Present Illness History of Present Illness: dictated Past Patient History - Infectious Disease Hx of Infectious Diseases: None - Past Medical History & Family History Past Medical History?: Yes - Past Social History Smoking Status: Former Smoker - CARDIAC Hx Congestive Heart Failure: Yes Hx Hypertension: Yes - PULMONARY Hx Respiratory Disorders: No - NEUROLOGICAL Hx Neurological Disorder: No - HEENT Hx HEENT Problems: Yes Hx Cataracts: Yes - RENAL Hx Chronic Kidney Disease: Yes - ENDOCRINE/METABOLIC Hx Endocrine Disorders: Yes Hx Systemic Lupus Erythematosus: Yes - HEMATOLOGICAL/ONCOLOGICAL Hx Blood Disorders: Yes Other/Comment: systemic lupus - INTEGUMENTARY Hx Dermatological Problems: No - MUSCULOSKELETAL/RHEUMATOLOGICAL Hx Falls: Yes - GASTROINTESTINAL Hx Gastrointestinal Disorders: Yes Hx Gastroesophageal Reflux: Yes Other/Comment: gerd - GENITOURINARY/GYNECOLOGICAL Hx Genitourinary Disorders: Yes Hx Urinary Tract Infection: Yes - PSYCHIATRIC Hx Substance Use: Yes (marijuana) - SURGICAL HISTORY Hx Appendectomy: Yes Hx Cholecystectomy: Yes (ciera keller 06/23/2017) - ANESTHESIA Hx Anesthesia: Yes Hx Anesthesia Reactions: No Hx Malignant Hyperthermia: No Meds Allergies/Adverse Reactions: Allergies Allergy/AdvReac Type Severity Reaction Status Date / Time lactose Allergy Intermediate NAUSEA Verified 07/10/17 17:34 latex Allergy Intermediate RASH Verified 07/10/17 17:34 - Medications Medications: Current Medications Acetaminophen (Tylenol 325mg Tab) 650 mg PO Q6 PRN PRN Reason: Fever >100.4 F Last Admin: 07/11/17 18:22 Dose: 650 mg Albuterol Sulfate (Albuterol 0.083% Inhal Carmen (2.5 Mg/3 Ml) Ud) 2.5 mg INH RQ6 PRN PRN Reason: Shortness of Breath Alprazolam (Xanax) 0.25 mg PO BID PRN PRN Reason: Anxiety Stop: 07/17/17 22:14 Last Admin: 07/11/17 16:59 Dose: 0.25 mg Carvedilol (Coreg) 3.125 mg PO DAILY [facility] Last Admin: 07/11/17 10:07 Dose: 3.125 mg Enoxaparin Sodium (Lovenox) 40 mg SC DAILY [facility] Last Admin: 07/11/17 10:07 Dose: 40 mg Ferric Sodium Gluconate Complex (Ferrlecit) 125 mg IVPB DAILY [facility] Stop: 09/17/17 10:01 Hydroxychloroquine Sulfate (Plaquenil) 200 mg PO BID [facility] Last Admin: 07/11/17 18:22 Dose: 200 mg Ceftriaxone Sodium 1 gm/ (Sodium Chloride) 100 mls @ 100 mls/hr IVPB DAILY [facility] Last Admin: 07/11/17 10:08 Dose: 100 mls/hr Dextrose/Sodium Chloride (Dextrose 5%/0.45% Ns 1000 Ml) 1,000 mls @ 80 mls/hr IV .[id number] [facility] Last Admin: 07/11/17 15:03 Dose: 80 mls/hr Fluconazole (Diflucan Iv 100 Mg/50 Ml Ns) 50 mls @ 50 mls/hr IVPB Q24H [facility] Last Admin: 07/11/17 18:21 Dose: 50 mls/hr Morphine Sulfate (Morphine) 1 mg SC Q4 PRN PRN Reason: Pain, severe (8-10) Last Admin: 07/11/17 12:14 Dose: 1 mg Ondansetron HCl (Zofran Inj) 4 mg IVP Q8H PRN PRN Reason: Nausea/Vomiting Last Admin: 07/11/17 12:14 Dose: 4 mg Pneumococcal Polyvalent Vaccine (Pneumovax 23 Vaccine) 0.5 ml SC .ONCE ONE Stop: 07/14/17 10:01 Results - Vital Signs Recent Vital Signs: Last Vital Signs Temp 98.8 F 07/11/17 19:22 Pulse 88 07/11/17 15:00 Resp 20 07/11/17 15:00 BP 127/79 07/11/17 15:00 Pulse Ox 96 07/11/17 15:00 - Labs Result Diagrams: 07/11/17 07:12 07/11/17 07:12 Labs: Laboratory Results - last 24 hr 07/11/17 07/11/17 07/11/17 07:12 07:12 11:34 WBC 9.9 RBC 2.75 L Hgb 7.7 L Hct 23.5 L MCV 85.3 MCH 27.9 MCHC 32.8 L RDW 18.9 H Plt Count 500 H MPV 8.5 Neut % (Auto) 76.0 H Lymph % (Auto) 13.3 L [place] % (Auto) 9.1 Eos % (Auto) 1.3 Baso % (Auto) 0.3 Neut # 7.5 H Lymph # 1.3 [place] # 0.9 H Eos # 0.1 Baso # 0.0 Sodium 140 Potassium 3.5 L Chloride 107 Carbon Dioxide 25 Anion Gap 11 BUN 3 L Creatinine 0.6 L Est GFR ( Amer) > 60 Est GFR (Non-Af Amer) > 60 Random Glucose 98 Calcium 8.3 L Iron TIBC % Saturation Ferritin Blood Type O POSITIVE Antibody Screen Negative 07/11/17 07/11/17 11:34 11:34 WBC RBC Hgb Hct MCV MCH MCHC RDW Plt Count MPV Neut % (Auto) Lymph % (Auto) [place] % (Auto) Eos % (Auto) Baso % (Auto) Neut # Lymph # [place] # Eos # Baso # Sodium Potassium Chloride Carbon Dioxide Anion Gap BUN Creatinine Est GFR ( Amer) Est GFR (Non-Af Amer) Random Glucose Calcium Iron 13 L TIBC 199 L % Saturation 7 L Ferritin 180.0 Blood Type Antibody Screen
[2017-07-12] MEDS: Dextrose 5%/0.45% NS 1,000 ML IV SCH ×3 (02:54→17:51)
--- NOTE | 2017-07-12 07:20 | CON ---
INFECTIOUS DISEASE CONSULTATION DATE: REQUESTING PHYSICIAN: Dr. Gates. HISTORY OF PRESENT ILLNESS: This patient is a 51-year-old female. She states that she was here last three times and one time she was here with pericardial effusion and the second time she had cholelithiasis and she underwent a gallbladder removal. She says since she went from 06/23/2017, she has been having low-grade temperatures of 100 and today she came in with 101.5. She also complains of left lateral chest pain. She says her fever is there and cough and she is having nasal congestion and is having a sputum production. She shows sputum being whitish and she has been not feeling well, nasal congestion, fever, cough, and she says she wants to eat. She has appetite, but because of the pain on the left lateral chest, she is not able to eat. She does suffer from rheumatoid arthritis she says and from lupus, says it has been present since 1995. 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 PAST MEDICAL HISTORY: She has a past medical history of CHF, hypertension, chronic kidney disease secondary to lupus. PAST SURGICAL HISTORY: Appendectomy, cholecystectomy, and laparoscopic done on 06/23/2017. SOCIAL HISTORY: Alcohol use is negative. She has a substance use of marijuana in the past. ALLERGIES: SHE IS ALLERGIC TO LATEX GLOVES AND TO LACTULOSE. REVIEW OF SYSTEMS: She did come in with fever. She has fevers. She has cough. She has nasal congestion and shortness of breath. She does gave a history of chronic bronchitis in the past, has nausea and denies any abdominal pain. Denies any urinary symptoms. No dysuria, urgency, or frequency. Denies any neck pain. She has been having no rashes. She does complain of generalized weakness, otherwise has had no seizures. No altered mental status. So, she has fever, chest pain, cough, shortness of breath, nasal congestion, and nausea and that is the main symptom. On examination, I find she had a temperature of 99.9, 100.5, and now it was 98.8. PHYSICAL EXAMINATION: GENERAL: She appears chronically ill and thin-built female. She is cachectic. VITAL SIGNS: I find her temperature was 100.5 when I saw her, blood pressure of 127/79, respirations are 20, and heart rate is 88. She is 5 feet 9 inches and has a weight of 128 pounds. HEENT: Head is atraumatic and normocephalic. Pallor present. Tongue is coated and has thrush. NECK: Supple. JVP is flat. LUNGS: Clear. No crackles or rales present. HEART: S1 and S2 is regular. No murmurs are appreciated. ABDOMEN: Soft and nontender. No guarding. No rigidity present. She still has the Steri-Strip from the surgery on 06/23/2017. She states that she was told not to take it off and let them fall off on their own, so they are still dry, normal. There is no guarding. No rigidity present. EXTREMITIES: No edema, clubbing, or cyanosis present at this time. LABORATORY DATA: Labs are noted. Labs shows white count is 14.8, it was yesterday and today it is 9.9, hemoglobin 7.7, hematocrit 23.5, and platelet count is 500. She is severely anemic. Her ABG was done, which showed 7.50, CO2 was 38, oxygen saturation was , and potassium was 3.8. Sodium is 140, potassium is 3.5, chloride of 107, CO2 is 25, BUN is 3, and creatinine 0.6. She was not able to tolerate Zithromax, which was ordered before as she said it upsets her stomach and she would need something for her stomach. Urine shows some squamous cells; otherwise, UA is negative. Influenza test is negative and her iron study was low. She says she was tested for HIV in the past, but I will check it again tomorrow just to be sure that this is negative and she does have oral thrush. She does have a history of pericardial effusion when looked at the old echo and we will follow. She may be having fevers, but since she is complaining of left-sided pain and she recently had a cholecystectomy. I would monitor her labs. If her white count is down on the present treatments, we will continue these and if she continued to have fevers, we will get CAT scan of her abdomen, pelvis, and chest and an echo to rule out as she still is having pain, should be followed up. We will follow. Paul Velazquez MD [facility] # [id number]
[2017-07-12 08:40] LABS: BASO # 0.1 K/uL (0.0-0.2); BASO % 0.7 % (0.0-2.0); EOS # 0.2 K/uL (0.0-0.7); EOS % 1.3 % (0.0-4.0); LYMPH # 1.8 K/uL (1.0-4.3); MEAN CELL VOLUME 84.9 fL (81.0-99.0); MEAN CORPUSCULAR HEMOGLOBIN 27.9 pg (27.0-31.0); MEAN CORPUSCULAR HGB CONC 32.8 g/dL (33.0-37.0); MEAN PLATELET VOLUME 8.7 fL (7.2-11.7); MONO % 8.3 % (0.0-10.0); RED CELL DISTRIBUTION WIDTH 19.2 % (11.5-14.5); WHITE BLOOD COUNT 12.1 K/uL (4.8-10.8)
[2017-07-12 08:42] LABS: CHLORIDE 106 mmol/L (98-107); POTASSIUM 3.7 mmol/L (3.6-5.2); SODIUM 141 mmol/L (132-148)
[2017-07-12 08:44] LABS: GFR AFRICAN-AMERICAN > 60
[2017-07-12 08:45] LABS: ALB/GLOB RATIO 0.8 (1.0-2.1); ALKALINE PHOSPHATASE 77 U/L (38-126); ALT/SGPT 38 U/L (9-52); AST/SGOT 25 U/L (14-36); BILIRUBIN,TOTAL 0.4 mg/dL (0.2-1.3); BLOOD UREA NITROGEN 3 mg/dL (7-17); CALCIUM 8.8 mg/dl (8.6-10.4); CARBON DIOXIDE 25 mmol/L (22-30); GLUCOSE,RANDOM 95 mg/dL (65-105); TOTAL PROTEIN 7.3 g/dL (6.3-8.3)
[2017-07-12] MEDS: Enoxaparin 40 mg Syringe SC SCH (10:28)
[2017-07-12] MEDS: Ferric Sodium Gluconat Complex 62.5 mg/5 ml Vial IVPB SCH (10:30)
--- NOTE | 2017-07-12 15:04 | CARD ---
APPROVED REPORT EXAM: Two-dimensional and M-mode echocardiogram with Doppler and color Doppler. Other Information Quality : GoodRhythm : NSR INDICATION Congestive Heart Failure CKD RISK FACTORS Hypertension 2D DIMENSIONS IVSd0.8 (0.7-1.1cm)LVDd5.1 (3.9-5.9cm) PWd1.0 (0.7-1.1cm)LVDs3.8 (2.5-4.0cm) FS (%) 25.4 %LVEF (%)49.8 (>50%) M-Mode DIMENSIONS RVDd1.06 (2.1-3.2cm)Left Atrium (MM)3.50 (2.5-4.0cm) Aortic Root3.34 (2.2-3.7cm)Aortic Cusp Exc.2.61 (1.5-2.0cm) Aortic Valve AI P 1/2 [id number] Mitral Valve MV E Qmvezhpq79.5cm/sMV A Ghaxdwvw86.4cm/sE/A ratio0.6 TDI E/Lateral E'0.0E/Medial E'0.0 Tricuspid Valve TR Peak [id number]/sTR Peak Gr.[id number] LEFT VENTRICLE The Left Ventricle is borderline dilated. There is normal left ventricular wall thickness. Left ventricle systolic function is moderately impaired. The Ejection Fraction is 35-40%. There is hypokinesis in the apical septal wall. Transmitral Doppler flow pattern is Grade I-abnormal relaxation pattern. There is no ventricular septal defect visualized. RIGHT VENTRICLE The right ventricle is normal size. The right ventricular systolic function is normal. ATRIA The left atrium is mildly dilated. The right atrium size is normal. AORTIC VALVE The aortic valve is mildly to moderately sclerotic. The aortic valve is tri-cuspid. There is moderate aortic regurgitation. There is no aortic valvular stenosis. MITRAL VALVE Mitral annular calcification is mild. There is no evidence of mitral valve prolapse. Mitral regurgitation is moderate. TRICUSPID VALVE The tricuspid valve is normal in structure. There is trace tricuspid regurgitation. Right ventricular systolic pressure is estimated at less than 30 mmHg. There is no pulmonary hypertension. PULMONIC VALVE The pulmonic valve is not well visualized. There is no pulmonic valvular regurgitation. GREAT VESSELS The aortic root is normal in size. The IVC is normal in size and collapses >50% with inspiration. PERICARDIAL EFFUSION There is no pericardial effusion. <Conclusion> The Left Ventricle is borderline dilated. Left ventricle systolic function is moderately impaired. The Ejection Fraction is 35-40%. There is hypokinesis in the apical septal wall. Transmitral Doppler flow pattern is Grade I-abnormal relaxation pattern. There is moderate aortic regurgitation. Mitral regurgitation is moderate.
[2017-07-12] MEDS: Fluconazole IV 100mg/50 ml NS 50 ML IVPB SCH (19:00)
--- NOTE | 2017-07-13 00:34 | CP.PCM.PN ---
Subjective - Date & Time of Evaluation Date of Evaluation: 07/11/17 - Subjective Subjective: LOW GRADE FEVER, WEAK, C/O PAIN IN TOOTH, NO CHEST PAIN , SLIGHT COUGH Objective - Vital Signs/Intake and Output Vital Signs (last 24 hours): Temp Pulse Resp BP Pulse Ox 98.8 F 95 H 20 128/89 100 07/12/17 15:00 07/12/17 15:00 07/12/17 15:00 07/12/17 15:00 07/12/17 15:00 Intake and Output: 07/12/17 07/13/17 18:59 06:59 Intake Total 1140 910 Balance 1140 910 - Medications Medications: Current Medications Acetaminophen (Tylenol 325mg Tab) 650 mg PO Q6 PRN PRN Reason: Fever >100.4 F Last Admin: 07/11/17 18:22 Dose: 650 mg Albuterol Sulfate (Albuterol 0.083% Inhal Carmen (2.5 Mg/3 Ml) Ud) 2.5 mg INH RQ6 PRN PRN Reason: Shortness of Breath Alprazolam (Xanax) 0.25 mg PO BID PRN PRN Reason: Anxiety Stop: 07/17/17 22:14 Last Admin: 07/12/17 16:31 Dose: 0.25 mg Carvedilol (Coreg) 3.125 mg PO DAILY [facility] Last Admin: 07/12/17 10:28 Dose: 3.125 mg Cyclobenzaprine HCl (Flexeril) 5 mg PO BID PRN PRN Reason: pain Enoxaparin Sodium (Lovenox) 40 mg SC DAILY [facility] Last Admin: 07/12/17 10:28 Dose: 40 mg Ferric Sodium Gluconate Complex (Ferrlecit) 125 mg IVPB DAILY [facility] Stop: 07/20/17 10:01 Last Admin: 07/12/17 10:30 Dose: 125 mg Hydroxychloroquine Sulfate (Plaquenil) 200 mg PO BID [facility] Last Admin: 07/12/17 19:00 Dose: 200 mg Ceftriaxone Sodium 1 gm/ (Sodium Chloride) 100 mls @ 100 mls/hr IVPB DAILY [facility] Last Admin: 07/12/17 10:32 Dose: 100 mls/hr Dextrose/Sodium Chloride (Dextrose 5%/0.45% Ns 1000 Ml) 1,000 mls @ 80 mls/hr IV .[id number] [facility] Last Admin: 07/12/17 17:51 Dose: Not Given Fluconazole (Diflucan Iv 100 Mg/50 Ml Ns) 50 mls @ 50 mls/hr IVPB Q24H [facility] Last Admin: 07/12/17 19:00 Dose: 50 mls/hr Ondansetron HCl (Zofran Inj) 4 mg IVP Q8H PRN PRN Reason: Nausea/Vomiting Last Admin: 07/12/17 19:28 Dose: 4 mg Pneumococcal Polyvalent Vaccine (Pneumovax 23 Vaccine) 0.5 ml SC .ONCE ONE Stop: 07/14/17 10:01 - Labs Labs: 07/12/17 08:23 07/12/17 08:23 - Constitutional Appears: Non-toxic, No Acute Distress - Head Exam Head Exam: ATRAUMATIC, NORMAL INSPECTION, NORMOCEPHALIC - Eye Exam Eye Exam: EOMI, Normal appearance, PERRL Pupil Exam: NORMAL ACCOMODATION - ENT Exam ENT Exam: Mucous Membranes Moist, Normal Exam, Normal Oropharynx, TM's Normal Bilaterally - Neck Exam Neck Exam: Normal Inspection - Respiratory Exam Respiratory Exam: Clear to Ausculation Bilateral, NORMAL BREATHING PATTERN - Cardiovascular Exam Cardiovascular Exam: REGULAR RHYTHM, +S1, +S2 - GI/Abdominal Exam GI & Abdominal Exam: Normal Bowel Sounds - Extremities Exam Extremities Exam: Normal Capillary Refill - Back Exam Back Exam: NORMAL INSPECTION - Neurological Exam Neurological Exam: Alert, Awake, CN II-XII Intact, Normal Gait, Oriented x3 - Psychiatric Exam Psychiatric exam: Normal Mood - Skin Skin Exam: Intact Assessment and Plan (1) Abdominal pain Status: Acute (2) Dehydration Status: Resolved (3) Pleural effusion Status: Acute (4) SLE exacerbation Status: Chronic
--- NOTE | 2017-07-13 00:35 | CP.PCM.PN ---
Subjective - Date & Time of Evaluation Date of Evaluation: 07/12/17 - Subjective Subjective: COUGH, ANXIOUS, WEAK, PAIN IN TOOTH Objective - Vital Signs/Intake and Output Vital Signs (last 24 hours): Temp Pulse Resp BP Pulse Ox 98.8 F 95 H 20 128/89 100 07/12/17 15:00 07/12/17 15:00 07/12/17 15:00 07/12/17 15:00 07/12/17 15:00 Intake and Output: 07/12/17 07/13/17 18:59 06:59 Intake Total 1140 910 Balance 1140 910 - Medications Medications: Current Medications Acetaminophen (Tylenol 325mg Tab) 650 mg PO Q6 PRN PRN Reason: Fever >100.4 F Last Admin: 07/11/17 18:22 Dose: 650 mg Albuterol Sulfate (Albuterol 0.083% Inhal Carmen (2.5 Mg/3 Ml) Ud) 2.5 mg INH RQ6 PRN PRN Reason: Shortness of Breath Alprazolam (Xanax) 0.25 mg PO BID PRN PRN Reason: Anxiety Stop: 07/17/17 22:14 Last Admin: 07/12/17 16:31 Dose: 0.25 mg Carvedilol (Coreg) 3.125 mg PO DAILY [facility] Last Admin: 07/12/17 10:28 Dose: 3.125 mg Cyclobenzaprine HCl (Flexeril) 5 mg PO BID PRN PRN Reason: pain Enoxaparin Sodium (Lovenox) 40 mg SC DAILY [facility] Last Admin: 07/12/17 10:28 Dose: 40 mg Ferric Sodium Gluconate Complex (Ferrlecit) 125 mg IVPB DAILY [facility] Stop: 07/20/17 10:01 Last Admin: 07/12/17 10:30 Dose: 125 mg Hydroxychloroquine Sulfate (Plaquenil) 200 mg PO BID [facility] Last Admin: 07/12/17 19:00 Dose: 200 mg Ceftriaxone Sodium 1 gm/ (Sodium Chloride) 100 mls @ 100 mls/hr IVPB DAILY [facility] Last Admin: 07/12/17 10:32 Dose: 100 mls/hr Dextrose/Sodium Chloride (Dextrose 5%/0.45% Ns 1000 Ml) 1,000 mls @ 80 mls/hr IV .[id number] [facility] Last Admin: 07/12/17 17:51 Dose: Not Given Fluconazole (Diflucan Iv 100 Mg/50 Ml Ns) 50 mls @ 50 mls/hr IVPB Q24H [facility] Last Admin: 07/12/17 19:00 Dose: 50 mls/hr Ondansetron HCl (Zofran Inj) 4 mg IVP Q8H PRN PRN Reason: Nausea/Vomiting Last Admin: 07/12/17 19:28 Dose: 4 mg Pneumococcal Polyvalent Vaccine (Pneumovax 23 Vaccine) 0.5 ml SC .ONCE ONE Stop: 07/14/17 10:01 - Labs Labs: 07/12/17 08:23 07/12/17 08:23 - Constitutional Appears: Non-toxic, No Acute Distress - Head Exam Head Exam: ATRAUMATIC, NORMAL INSPECTION, NORMOCEPHALIC - Eye Exam Eye Exam: EOMI, Normal appearance, PERRL Pupil Exam: NORMAL ACCOMODATION - ENT Exam ENT Exam: Mucous Membranes Moist, Normal Exam, Normal Oropharynx, TM's Normal Bilaterally - Neck Exam Neck Exam: Normal Inspection - Respiratory Exam Respiratory Exam: Clear to Ausculation Bilateral, Rales, NORMAL BREATHING PATTERN - Cardiovascular Exam Cardiovascular Exam: REGULAR RHYTHM, +S1, +S2 - GI/Abdominal Exam GI & Abdominal Exam: Normal Bowel Sounds - Rectal Exam Rectal Exam: NORMAL INSPECTION - Extremities Exam Extremities Exam: Normal Capillary Refill - Neurological Exam Neurological Exam: Alert, Awake, CN II-XII Intact, Normal Gait, Oriented x3 Neuro motor strength exam: Left Upper Extremity: 5, Right Upper Extremity: 5, Left Lower Extremity: 5, Right Lower Extremity: 5 - Psychiatric Exam Psychiatric exam: Anxious - Skin Skin Exam: Intact Assessment and Plan (1) Abdominal pain Status: Acute (2) Pleural effusion Status: Acute (3) SLE exacerbation Status: Chronic
[2017-07-13] MEDS: Dextrose 5%/0.45% NS 1,000 ML IV SCH ×2 (04:49→18:14)
[2017-07-13] MEDS: Ferric Sodium Gluconat Complex 62.5 mg/5 ml Vial IVPB SCH (10:44)
[2017-07-13] MEDS: Enoxaparin 40 mg Syringe SC SCH (10:45)
[2017-07-13] MEDS ORDERED: Ciprofloxacin 400mg/200ml D5W 400 MG/200 ML BAG IVPB SCH ×2 (12:30→13:45)
[2017-07-13] MEDS: Fluconazole IV 100mg/50 ml NS 50 ML IVPB SCH (18:33)
[2017-07-13] MEDS: Aluminum Hydroxide/Magnesium Hydroxide Susp (30 mL) PO PRN (19:35)
--- NOTE | 2017-07-13 22:31 | CP.PCM.PN ---
Subjective - Subjective Subjective: no fever, feels better, no sob Objective - Vital Signs/Intake and Output Vital Signs (last 24 hours): Temp Pulse Resp BP Pulse Ox 98.6 F 97 H 20 115/78 98 07/13/17 08:00 07/13/17 08:00 07/13/17 08:00 07/13/17 08:00 07/13/17 08:00 Intake and Output: 07/13/17 07/14/17 18:59 06:59 Intake Total 1140 Balance 1140 - Medications Medications: Current Medications Acetaminophen (Tylenol 325mg Tab) 650 mg PO Q6 PRN PRN Reason: Fever >100.4 F Last Admin: 07/11/17 18:22 Dose: 650 mg Al Hydrox/Mg Hydrox/Simethicone (Maalox 30 Ml) 30 ml PO TID PRN PRN Reason: Indigestion / Heartburn Last Admin: 07/13/17 19:35 Dose: 30 ml Albuterol Sulfate (Albuterol 0.083% Inhal Carmen (2.5 Mg/3 Ml) Ud) 2.5 mg INH RQ6 PRN PRN Reason: Shortness of Breath Alprazolam (Xanax) 0.25 mg PO BID PRN PRN Reason: Anxiety Stop: 07/17/17 22:14 Last Admin: 07/13/17 18:33 Dose: 0.25 mg Carvedilol (Coreg) 3.125 mg PO DAILY [facility] Last Admin: 07/13/17 10:45 Dose: 3.125 mg Ciprofloxacin (Cipro) 500 mg PO BID [facility] Cyclobenzaprine HCl (Flexeril) 5 mg PO BID PRN PRN Reason: pain Last Admin: 07/13/17 03:27 Dose: 5 mg Enoxaparin Sodium (Lovenox) 40 mg SC DAILY [facility] Last Admin: 07/13/17 10:45 Dose: 40 mg Ferrous Sulfate (Feosol) 325 mg PO BID [facility] Fluconazole (Diflucan) 100 mg PO DAILY [facility] Hydroxychloroquine Sulfate (Plaquenil) 200 mg PO BID [facility] Last Admin: 07/13/17 18:33 Dose: 200 mg Ondansetron HCl (Zofran Inj) 4 mg IVP Q8H PRN PRN Reason: Nausea/Vomiting Last Admin: 07/13/17 10:45 Dose: 4 mg Pneumococcal Polyvalent Vaccine (Pneumovax 23 Vaccine) 0.5 ml SC .ONCE ONE Stop: 07/14/17 10:01 - Labs Labs: 07/12/17 08:23 07/12/17 08:23 - Constitutional Appears: Non-toxic, No Acute Distress - Head Exam Head Exam: ATRAUMATIC, NORMAL INSPECTION, NORMOCEPHALIC - Eye Exam Eye Exam: EOMI, Normal appearance, PERRL Pupil Exam: NORMAL ACCOMODATION - ENT Exam ENT Exam: Mucous Membranes Moist, Normal Exam, Normal Oropharynx, TM's Normal Bilaterally - Neck Exam Neck Exam: Normal Inspection - Respiratory Exam Respiratory Exam: Clear to Ausculation Bilateral, NORMAL BREATHING PATTERN - Cardiovascular Exam Cardiovascular Exam: REGULAR RHYTHM, +S1, +S2 - GI/Abdominal Exam GI & Abdominal Exam: Normal Bowel Sounds - Rectal Exam Rectal Exam: NORMAL INSPECTION - Neurological Exam Neurological Exam: Alert, Awake, CN II-XII Intact, Normal Gait, Oriented x3 Neuro motor strength exam: Left Upper Extremity: 5, Right Upper Extremity: 5, Left Lower Extremity: 5, Right Lower Extremity: 5 - Psychiatric Exam Psychiatric exam: Anxious - Skin Skin Exam: Intact Assessment and Plan (1) Abdominal pain Status: Acute (2) Pleural effusion Status: Acute (3) SLE exacerbation Status: Chronic
[2017-07-14] MEDS: Enoxaparin 40 mg Syringe SC SCH (09:49)
[2017-07-14] MEDS ORDERED: Pneumococcal 23-Valent Vaccine SC ONE (10:00)
[2017-07-14] MEDS ORDERED: Pantoprazole 40 mg EC Tab PO SCH (11:45)
[2017-07-14 16:45] VITALS: BP 115/81; PULSE 91; RESP 20; TEMP 98.1; O2SAT 100
--- NOTE | 2017-07-14 17:17 | US ---
HISTORY: abdomenal pain COMPARISON: Abdomen ultrasound dated 06/16/2017 and upper abdomen section from chest CT 04/22/2017. TECHNIQUE: Sonographic evaluation of the abdomen. FINDINGS: LIVER: Measures 15.3 cm. Mildly increased echogenicity of the liver parenchyma may once again indicate diffuse fatty infiltration of liver though other etiologies are possible. No mass. No intrahepatic bile duct dilatation. GALLBLADDER: Interval cholecystectomy is not apparent. Clinically correlate further. COMMON BILE DUCT: Measures 4.4 mm. No stones. No dilatation. PANCREAS: Unremarkable as visualized. No mass. No ductal dilatation. RIGHT KIDNEY: Measures 12.2cm. Increased parenchymal echogenicity. No calculus, mass, or hydronephrosis. LEFT KIDNEY: Measures 10.4cm. Increased parenchymal echogenicity. No calculus, mass, or hydronephrosis. SPLEEN: Normal in size and contour. No mass. AORTA: No aneurysmal dilatation. IVC: Unremarkable. OTHER FINDINGS: None. IMPRESSION: 1. Interval cholecystectomy with its common bile duct normal in caliber. Diffuse fatty infiltration liver is again identified. 2. Interval cholecystectomy. 3. Echogenic renal parenchyma may indicate medical renal disease intrinsically. Clinically correlate. Prior small bilateral renal cysts are not identified currently. The upper pole left renal cysts is also not seen in prior CT of the abdomen of the chest 06/23/2017.
[2017-07-14] MEDS: Aluminum Hydroxide/Magnesium Hydroxide Susp (30 mL) PO PRN (17:52)
--- NOTE | 2017-07-14 17:53 | PCM.HF ---
Heart Failure Core Measure - Heart Failure Ejection Fraction: Less Than 40 % (EF 35-40%) EVELYN Inhibitor Prescribed: No Beta-Cassius Prescribed: Carvedilol Angiotensin II Receptor Cassius Prescribed: No AnticoagulationTherapy for Atrial Fibrillation/Atrialflutter: No Aldosterone Antagonist Prescribed: No Implantable Cardioverter Defibrillator Therapy: No - Follow up Will be discharged to: Home Follow Up Date (must be within 7 days from discharge): 07/18/17 Follow Up Time: 09:00
--- NOTE | 2017-07-14 17:58 | CP.PCM.PN ---
Subjective - Date & Time of Evaluation Date of Evaluation: 07/14/17 Time of Evaluation: 17:59 - Subjective Subjective: Awake, alert, no abdominal pain or distress. Objective - Vital Signs/Intake and Output Vital Signs (last 24 hours): Temp Pulse Resp BP Pulse Ox 98.1 F 91 H 20 115/81 100 07/14/17 15:15 07/14/17 15:15 07/14/17 15:15 07/14/17 15:15 07/14/17 15:15 Intake and Output: 07/14/17 07/14/17 06:59 18:59 Intake Total 910 400 Balance 910 400 - Medications Medications: Current Medications Acetaminophen (Tylenol 325mg Tab) 650 mg PO Q6 PRN PRN Reason: Fever >100.4 F Last Admin: 07/11/17 18:22 Dose: 650 mg Al Hydrox/Mg Hydrox/Simethicone (Maalox 30 Ml) 30 ml PO TID PRN PRN Reason: Indigestion / Heartburn Last Admin: 07/14/17 17:52 Dose: 30 ml Albuterol Sulfate (Albuterol 0.083% Inhal Carmen (2.5 Mg/3 Ml) Ud) 2.5 mg INH RQ6 PRN PRN Reason: Shortness of Breath Alprazolam (Xanax) 0.25 mg PO BID PRN PRN Reason: Anxiety Stop: 07/17/17 22:14 Last Admin: 07/13/17 18:33 Dose: 0.25 mg Carvedilol (Coreg) 3.125 mg PO DAILY [facility] Last Admin: 07/14/17 09:49 Dose: 3.125 mg Ciprofloxacin (Cipro) 500 mg PO BID [facility] Last Admin: 07/14/17 17:21 Dose: 500 mg Cyclobenzaprine HCl (Flexeril) 5 mg PO BID PRN PRN Reason: pain Last Admin: 07/14/17 17:51 Dose: 5 mg Enoxaparin Sodium (Lovenox) 40 mg SC DAILY [facility] Last Admin: 07/14/17 09:49 Dose: 40 mg Ferrous Sulfate (Feosol) 325 mg PO BID [facility] Last Admin: 07/14/17 17:20 Dose: 325 mg Fluconazole (Diflucan) 100 mg PO DAILY [facility] Last Admin: 07/14/17 09:50 Dose: 100 mg Hydroxychloroquine Sulfate (Plaquenil) 200 mg PO BID [facility] Last Admin: 07/14/17 17:22 Dose: 200 mg Ondansetron HCl (Zofran Inj) 4 mg IVP Q8H PRN PRN Reason: Nausea/Vomiting Last Admin: 07/13/17 10:45 Dose: 4 mg Pantoprazole Sodium (Protonix Ec Tab) 40 mg PO DAILY [facility] Last Admin: 07/14/17 13:07 Dose: Not Given - Labs Labs: 07/12/17 08:23 07/12/17 08:23 Assessment and Plan - Assessment and Plan (Free Text) Assessment: Patient is seen and examined. Denies abdominal pain or distress. Tolerating diet , walking around better. D/W DR Gates, discharge plan for home today. All prescriptions given. Advised to follow up with PMD in 1 week. also periodic dental check up to be done.
[2017-07-14 20:24] LABS: RNP Interpretation Negative (Negative)
--- NOTE | 2017-07-15 11:54 | CP.PCM.DIS ---
Provider - Provider Date of Admission: 07/10/17 20:12 Attending physician: Garcia Gates MD Time Spent in preparation of Discharge (in minutes): 55 Diagnosis - Discharge Diagnosis (1) Abdominal pain Status: Acute Priority: High (2) Pleural effusion Status: Acute Priority: High (3) SLE exacerbation Status: Chronic Priority: Medium Hospital Course - Lab Results Lab Results: Most Recent Lab Values WBC 12.1 K/uL (4.8-10.8) H 07/12/17 08:23 RBC 2.95 Mil/uL (3.80-5.20) L 07/12/17 08:23 Hgb 8.2 g/dL (11.0-16.0) L 07/12/17 08:23 Hct 25.0 % (34.0-47.0) L 07/12/17 08:23 MCV 84.9 fL (81.0-99.0) 07/12/17 08:23 MCH 27.9 pg (27.0-31.0) 07/12/17 08:23 MCHC 32.8 g/dL (33.0-37.0) L 07/12/17 08:23 RDW 19.2 % (11.5-14.5) H 07/12/17 08:23 Plt Count 613 K/uL (130-400) H D 07/12/17 08:23 MPV 8.7 fL (7.2-11.7) 07/12/17 08:23 Neut % (Auto) 74.7 % (50.0-75.0) 07/12/17 08:23 Lymph % (Auto) 15.0 % (20.0-40.0) L 07/12/17 08:23 [place] % (Auto) 8.3 % (0.0-10.0) 07/12/17 08:23 Eos % (Auto) 1.3 % (0.0-4.0) 07/12/17 08:23 Baso % (Auto) 0.7 % (0.0-2.0) 07/12/17 08:23 Neut # 9.0 K/uL (1.8-7.0) H 07/12/17 08:23 Lymph # 1.8 K/uL (1.0-4.3) 07/12/17 08:23 [place] # 1.0 K/uL (0.0-0.8) H 07/12/17 08:23 Eos # 0.2 K/uL (0.0-0.7) 07/12/17 08:23 Baso # 0.1 K/uL (0.0-0.2) 07/12/17 08:23 ESR 65 mm/hr (0-20) H 07/14/17 11:27 Haptoglobin 484 mg/dL (43-212) H 07/11/17 12:25 pO2 26 mm/Hg (30-55) L 07/10/17 18:55 VBG pH 7.50 (7.32-7.43) H 07/10/17 18:55 VBG pCO2 38 mmHg (40-60) L 07/10/17 18:55 VBG HCO3 28.6 mmol/L 07/10/17 18:55 VBG Total CO2 30.8 mmol/L (22-28) H 07/10/17 18:55 VBG O2 Sat (Calc) 57.6 % (40-65) 07/10/17 18:55 VBG Base Excess 6.1 mmol/L (0.0-2.0) H 07/10/17 18:55 VBG Potassium 3.8 mmol/L (3.6-5.2) 07/10/17 18:55 Sodium 139.0 mmol/l (132-148) 07/10/17 18:55 Chloride 108.0 mmol/L (98-107) H 07/10/17 18:55 Glucose 118 mg/dl (65-105) H 07/10/17 18:55 Lactate 1.1 mmol/L (0.7-2.1) 07/10/17 18:55 Sodium 141 mmol/L (132-148) 07/12/17 08:23 Potassium 3.7 mmol/L (3.6-5.2) 07/12/17 08:23 Chloride 106 mmol/L (98-107) 07/12/17 08:23 Carbon Dioxide 25 mmol/L (22-30) 07/12/17 08:23 Anion Gap 14 (10-20) 07/12/17 08:23 BUN 3 mg/dL (7-17) L 07/12/17 08:23 Creatinine 0.7 MG/DL (0.7-1.2) 07/12/17 08:23 Est GFR ( Amer) > 60 07/12/17 08:23 Est GFR (Non-Af Amer) > 60 07/12/17 08:23 Random Glucose 95 mg/dL (65-105) 07/12/17 08:23 Calcium 8.8 mg/dl (8.6-10.4) 07/12/17 08:23 Iron 13 ug/dL (37-170) L 07/11/17 11:34 TIBC 199 ug/dL (250-450) L 07/11/17 11:34 % Saturation 7 (20-55) L 07/11/17 11:34 Ferritin 180.0 ng/mL 07/11/17 11:34 Total Bilirubin 0.4 mg/dL (0.2-1.3) 07/12/17 08:23 AST 25 U/L (14-36) 07/12/17 08:23 ALT 38 U/L (9-52) 07/12/17 08:23 Alkaline Phosphatase 77 U/L (38-126) 07/12/17 08:23 Total Creatine Kinase 39 U/L (30-135) 07/10/17 18:54 CK-MB (Mass) < 0.22 ng/mL (0.0-3.38) 07/10/17 18:54 Troponin I < 0.0120 ng/mL (0.00-0.120) 07/10/17 18:54 Troponin I, Quant < 0.0120 ng/mL (0.00-0.120) 07/10/17 18:54 C-React Prot High Sens > 15.00 mg/L (1.00-3.00) H 07/12/17 11:06 Total Protein 7.3 g/dL (6.3-8.3) 07/12/17 08:23 Albumin 3.1 g/dL (3.5-5.0) L 07/12/17 08:23 Globulin 4.1 gm/dL (2.2-3.9) H 07/12/17 08:23 Albumin/Globulin Ratio 0.8 (1.0-2.1) L 07/12/17 08:23 Lipase 84 U/L (23-300) 07/10/17 18:54 Venous Blood Potassium 3.8 mmol/L (3.6-5.2) 07/10/17 18:55 Urine Color Yellow (YELLOW) 07/10/17 18:54 Urine Clarity Clear (Clear) 07/10/17 18:54 Urine pH 9.0 (5.0-8.0) 07/10/17 18:54 Ur Specific [employer] 1.011 (1.003-1.030) 07/10/17 18:54 Urine Protein Negative mg/dL (NEGATIVE) 07/10/17 18:54 Urine Glucose (UA) Normal mg/dL (Normal) 07/10/17 18:54 Urine Ketones Negative mg/dL (NEGATIVE) 07/10/17 18:54 Urine Blood Negative (NEGATIVE) 07/10/17 18:54 Urine Nitrate Negative (NEGATIVE) 07/10/17 18:54 Urine Bilirubin Negative (NEGATIVE) 07/10/17 18:54 Urine Urobilinogen Normal mg/dL (0.2-1.0) 07/10/17 18:54 Ur Leukocyte Esterase Neg Michael/uL (Negative) 07/10/17 18:54 Urine WBC (Auto) 2 /hpf (0-5) 07/10/17 18:54 Urine RBC (Auto) 2 /hpf (0-3) 07/10/17 18:54 Ur Squamous Epith Cells 9 /hpf (0-5) H 07/10/17 18:54 Ur Transition Epith Cell < 1 /hpf (0-3) 07/10/17 18:54 Urine Bacteria Rare (<OCC) 07/10/17 18:54 Urine HCG, Qual Negative (NEGATIVE) 07/10/17 18:54 Rheum Arthritis Panel Negative (NEGATIVE) 07/12/17 11:06 PAULO 6 Profile Positive (NEGATIVE) H 07/13/17 08:30 PAULO Titer 1:160 H 07/13/17 08:30 PAULO Pattern Homogenous H 07/13/17 08:30 [employer]ER HELPER Antibody <1.0 AI (<1.0) 07/12/17 11:06 [employer] HELPER Antibody Interp Negative (Negative) 07/12/17 11:06 HIV 1&2 Antibody Screen Negative (NEGATIVE) 07/12/17 08:23 Influenza Typ A,B (EIA) Negative for flu a/b (NEGATIVE) 07/10/17 18:57 Anti-Staphylolysin O Negative (NEGATIVE) 07/12/17 11:06 Blood Type O POSITIVE 07/11/17 11:34 Antibody Screen Negative 07/11/17 11:34 - Hospital Course Hospital Course: Patient is seen and examined. Denies abdominal pain or distress. Tolerating diet , walking around better. PT IS FOR discharge plan for home today. All prescriptions given. Advised to follow up with PMD in 1 week. also periodic dental check up to be done. Discharge Exam - Head Exam Head Exam: ATRAUMATIC, NORMAL INSPECTION, NORMOCEPHALIC - Eye Exam Eye Exam: EOMI, Normal appearance, PERRL Pupil Exam: NORMAL ACCOMODATION, PERRL - ENT Exam ENT Exam: Mucous Membranes Moist - Respiratory Exam Respiratory Exam: Clear to PA & Lateral, NORMAL BREATHING PATTERN - Cardiovascular Exam Cardiovascular Exam: REGULAR RHYTHM, +S1, +S2 - GI/Abdominal Exam GI & Abdominal Exam: Normal Bowel Sounds Discharge Plan - Discharge Medications Prescriptions: Ciprofloxacin [Cipro] 500 mg PO BID #10 tab Fluconazole [Diflucan] 100 mg PO DAILY #10 tab Ferrous Sulfate [Feosol] 325 mg PO BID #60 tab Cyclobenzaprine [Flexeril] 5 mg PO BID PRN #20 tab PRN Reason: pain - Follow Up Plan Condition: FAIR Disposition: HOME/ ROUTINE Instructions: Ciprofloxacin (By mouth), Iron Supplements (By mouth), Cyclobenzaprine (By mouth), Fluconazole (By mouth), Heart Failure (DC), Fever in Adults (GEN), Leukocytosis (DC) Referrals: Garcia Gates MD [Staff Provider] -
[2017-07-15 15:36] LABS: CCP IGG <16 Units (<20)
== END 2017-07-14 18:37 | disposition home or self-care (01) | DRG 641 ==
LOC: C.ER 17:24 → C.3T 20:12
PROVIDERS: ADMIT Internal Medicine; ATTEND Internal Medicine
DX: E86.0 Dehydration (principal); I13.0 Hypertensive heart and chronic kidney disease with heart failure and stage 1 through stage 4 chronic kidney disease, or unspecified chronic kidney disease; I50.9 Heart failure, unspecified; M32.9 Systemic lupus erythematosus, unspecified; F41.9 Anxiety disorder, unspecified; K21.9 Gastro-esophageal reflux disease without esophagitis; M06.9 Rheumatoid arthritis, unspecified; N18.9 Chronic kidney disease, unspecified; Z87.891 Personal history of nicotine dependence; K08.89 Other specified disorders of teeth and supporting structures

== ENCOUNTER 2017-08-06 07:16 | Day surgery (SDC) | payer MEDICARE ==
[2017-08-06 07:49] VITALS: BMI 19.0
[2017-08-06] MEDS ORDERED: Lactated Ringer's 1,000 ML IV ONE (08:56)
[2017-08-06] MEDS ORDERED: Propofol 10 mg/ml Inj (20 ML) ONE (09:05)
[2017-08-06] MEDS ORDERED: Lactated Ringer's 500 ML IV SCH (09:15)
[2017-08-06 09:16] VITALS: O2SAT 100
[2017-08-06 10:51] VITALS: BP 135/85; PULSE 67; RESP 16; TEMP 98.1
== END 2017-08-06 10:15 | disposition home or self-care (01) ==
LOC: C.ENDO 07:16
PROVIDERS: ATTEND Internal Medicine Gastroenterology
DX: K20.8 Other esophagitis (principal)
CPT/HCPCS: 43239; 88305; J2704; J7120

== ENCOUNTER 2018-01-21 08:19 | Day surgery (SDC) | payer MEDICARE ==
[2018-01-21] MEDS ORDERED: Propofol 10 mg/ml Inj (20 ML) ONE (10:02)
--- NOTE | 2018-01-21 10:03 | CP.SDSHP ---
Same Day Surgery H & P - History Proposed Procedure: colonoscopy Pre-Op Diagnosis: screening - Previous Medical/Surgical History Comments: SLE. Anxiety Previous Surgical History: cataracts surgery. Bilat THR. Cholecystectomy - Allergies Allergies: Allergies lactose Allergy (Intermediate, Verified 01/21/18 08:54) NAUSEA latex Allergy (Intermediate, Verified 01/21/18 08:54) RASH - Current Medications Current Medications: reviewed, per reconciliation - Physical Exam General Appearance: wdwn nad Vital Signs: Vital Signs 01/21/18 01/21/18 08:40 09:21 Temperature 99.3 F Pulse Rate 73 73 Respiratory 20 Rate Blood Pressure 126/84 O2 Sat by Pulse 99 Oximetry Mental Status: Alert & Oriented x3 Heart: WNL Lungs: WNL GI: WNL - {Optional Preform as Required} Abdomen: WNL - Impression Impression: Screening for colorectal neoplasm Pt. Evaluated Today:Candidate for Anesthesia & Procedure: Yes - Date & Time Date: 01/21/18 Time: 10:02 Short Stay Discharge - Short Stay Discharge Admitting Diagnosis/Reason for Visit: SCREENING Disposition: HOME/ ROUTINE
[2018-01-21] MEDS ORDERED: White Petrolatum/Mineral Oil Ophth Oint(3.5 gm) ONE (10:08)
[2018-01-21 10:46] VITALS: O2SAT 100
[2018-01-21 11:06] VITALS: RESP 15
[2018-01-21 11:36] VITALS: BP 140/87; PULSE 68; TEMP 97
== END 2018-01-21 11:30 | disposition home or self-care (01) ==
LOC: C.ENDO 08:19
PROVIDERS: ATTEND Internal Medicine Gastroenterology
DX: Z12.11 Encounter for screening for malignant neoplasm of colon (principal); K57.30 Diverticulosis of large intestine without perforation or abscess without bleeding; K64.8 Other hemorrhoids; F41.9 Anxiety disorder, unspecified; M32.9 Systemic lupus erythematosus, unspecified
CPT/HCPCS: 45378; J2001; J2704